=== PATIENT | female | born 1935 | race Caucasian/White ===

== ENCOUNTER 2017-09-01 08:37 | Emergency (ER) | payer OTHER, MEDICARE ==
--- NOTE | 2017-09-01 08:49 | ED ---
Neurological HPI - HPI Summary HPI Summary: This patient is a 82 year old F BIBA with a chief complaint of right forearm pain and numbness since this morning. Pt felt general weakness last night before going to sleep. Upon waking, the pt felt pain in her right wrist and forearm and put on a pain patch, which alleviated some of the pain. Pt thought she was having a stroke, which is why she was brought to the ER. Patient reports cough, malaise, frequent urination, nausea, blurry vision, and lightheaded dizziness. Pt reports that she has had lines across her vision and general difficulty focusing. Pt was able to ambulate earlier this morning. Pt has not taken her BP medication or baby aspirin this morning. Pt was on Lasix in the past but discontinued because of frequent urination. Pt ate yogurt [employer]. Pt is seeing a throat doctor for a vascularization next week. PMHx of stroke. Pt is a former smoker. - History of Current Complaint Chief Complaint: EDGeneral Stated Complaint: ARM PAIN/NUMBNESS Time Seen by Provider: 09/01/17 08:38 Hx Obtained From: Patient Onset/Duration: Sudden Onset, Started hours ago Timing: Constant Onset Severity: Severe Current Severity: Moderate Pain Intensity: 0 Pain Scale Used: 0-10 Numeric Character: Lightheaded, Weak, Dizzy, Numbness/Tingling Associated Signs and Symptoms: Positive: Weakness, Dizziness, Pain - right arm, Lightheadness, Nausea/Vomiting - Allergy/Home Medications Allergies/Adverse Reactions: Allergies Allergy/AdvReac Type Severity Reaction Status Date / Time carvedilol [From Coreg] Allergy Unknown Verified 09/01/17 08:48 Reaction Details Penicillins Allergy Unknown Verified 09/01/17 08:48 Reaction Details Home Medications: Home Medications dilTIAZem HCl [Diltiazem 12Hr ER] 2 cap PO DAILY 09/01/17 [History Confirmed ] PMH/Surg Hx/FS Hx/Imm Hx Cardiovascular History: Reports: Hx Hypertension History: Reports: Other Problems/Disorders - frequent urination EENT History: Denies: Hx Deafness Infectious Disease History: No Infectious Disease History: Denies: Traveled Outside the [place] in Last 30 Days - Family History Known Family History: Positive: Hypertension - Social History Hx Tobacco Use: Yes Smoking Status (MU): Former Smoker Type: Cigarettes Review of Systems Positive: Fatigue, Other - malaise Positive: Blurred Vision Positive: Cough Positive: Nausea Positive: frequency Positive: Other - right arm pain Positive: Numbness Positive: Anxious All Other Systems Reviewed And Are Negative: Yes Physical Exam - Summary Physical Exam Summary: Appearance: Well appearing, no pain distress Skin: warm, dry, reflects adequate perfusion Head/face: normal Eyes: EOMI, ZAIN ENT: normal Neck: supple, non-tender Respiratory: CTA, breath sounds present. Cardiovascular: RRR, pulses symmetrical. Fine crackle in the left base. Elevated BP and HR. Abdomen: non-tender, soft Bowel Sounds: present Musculoskeletal: strength/ROM intact. Trace LE edema. Neuro: normal, sensory motor intact, A&Ox3 GCS: 15 Triage Information Reviewed: Yes Vital Signs On Initial Exam: Initial Vitals Temp Pulse Resp BP Pulse Ox 98.3 F 105 16 206/98 98 09/01/17 08:40 09/01/17 08:40 09/01/17 08:40 09/01/17 08:40 09/01/17 08:40 Vital Signs Reviewed: Yes Diagnostics - Vital Signs Vital Signs Temp Pulse Resp BP Pulse Ox 09/01/17 08:40 98.3 F 105 16 206/98 98 - Laboratory Result Diagrams: 09/01/17 09:11 09/01/17 09:11 Lab Statement: Any lab studies that have been ordered have been reviewed, and results considered in the medical decision making process. - Radiology CXR Radiology Interpretation Completed By: Radiologist - No radiographic evidence of acute cardiopulmonary disease. - EKG 9:02 Cardiac Rate: NL - 92 bpm EKG Rhythm: Atrial Fibrillation ST Segment: Normal - Prolonged QT interval, nml axis 10:33 Cardiac Rate: NL - 78 EKG Rhythm: Sinus Rhythm ST Segment: Normal - nml axis, nml interval. 1st degree AV block NIH Scale - NIH Scale Level of Consciousness: Alert/Keenly Responsive Ask Patient the Month and His/Her Age: Both Correct Ask Pt to Open/Close Eyes and Assembly Line Inspector/Release Non-Paretic Hand: Both Correctly Best Gaze (Only Horizontal Eye Movement): Normal Visual Field Testing: No Visual Loss Facial Paresis-Pt to Smile & Close Eyes or Grimace Symmetry: Normal/Symmetrical Motor Function - Right Arm: No Drift-Holds 10 Seconds Motor Function - Left Arm: No Drift-Holds 10 Seconds Motor Function - Right Leg: No Drift-Holds 10 Seconds Motor Function - Left Leg: No Drift-Holds 10 Seconds Limb Ataxia-Must be out of Proportion to Weakness Present: Absent Sensory (Use Pinprick to Test Arms/Legs/Trunk/Face): Normal Best Language (Describe Picture, Name Items): No Aphasia Dysarthria (Read Several Words): Normal Extinction and Inattention: No Abnormality Total Score: 0 Re-Evaluation - Re-Evaluation First Eval Re-Evaluation Time: 09:39 Change: Improved - BP has improved Second Eval Re-Evaluation Time: 10:31 Change: Improved - Pt is feeling better. Pt spontaneously converted to NSR. Request a repeat EKG. Third Eval Re-Evaluation Time: 10:39 Comment: Pt informed me that her doctor was already increasing her Diltiazem that she was supposed to get later today. Course/Dx - Course Course Of Treatment: Patient found to have atrial fibrillation, rate uncontrolled on arrival but spontaneously the rate improved. She then spontaneously converted. She felt well thereafter. This was without any medications. She is not on any blood thinner other than aspirin. We started her on oral Eliquis and I contacted the hospitalist. She agrees that patient can be safely discharged home with outpatient echocardiogram. Her doctor has already instructed her to increase her diltiazem. - Differential Dx Differential Diagnoses Neuro: Positive: Other - Elevated blood pressure, atrial fibrillation, metabolic abnormality, pneumonia, sepsis, UTI, dehydration - Diagnoses Provider Diagnoses: Paroxysmal atrial fibrillation, Elevated blood pressure reading - Physician Notifications Discussed Care Of Patient With: Lamar Macias Time Discussed With Above Provider: 10:34 Instructed by Provider To: Other - discharge with new medication Discharge - Sign-Out/Discharge Documenting (check all that apply): Patient Departure - Discharge - Discharge Plan Condition: Improved Disposition: HOME Prescriptions: Apixaban [Eliquis] 5 mg PO BID #60 [id number] Patient Education Materials: A-fib (Atrial Fibrillation) (ED) Referrals: Nima Hill DO [Doctor of Osteopathy] - Additional Instructions: There is a coupon for free 30 day supply of blood thinner on the respiratory support technician's website. Dr. Yao first thing in the morning to schedule follow-up. He will need to have an outpatient echocardiogram performed. Increase the diltiazem medication as he indicated. Return if worse, new symptoms or other concerns as discussed. - Billing Disposition and Condition Condition: IMPROVED Disposition: Home
[2017-09-01] MEDS ORDERED: Labetalol IV* 5 MG/ML 20 ML VIAL IV PUSH ONE (08:57)
[2017-09-01 09:25] LABS: ABS Basophils 0.1 10^3/ul (0-0.2); ABS Eosinophils 0.1 10^3/ul (0-0.6); ABS Lymphocytes 1.4 10^3/ul (1.0-4.8); ABS Monocytes 0.6 10^3/ul (0-0.8); ABS Neutrophils 3.7 10^3/ul (1.5-7.7); ABS Nucleated RBC 0 10^3/ul; Eosinophil % 1.4 % (0-6); Hematocrit 37 % (35-47); Hemoglobin 13.1 g/dl (12.0-16.0); Lymphocyte % 23.6 % (25-47); Mean Corpuscular HGB Conc 35 g/dl (31-36); Mean Corpuscular Hemoglobin 29 pg (27-31); Mean Corpuscular Volume 84 fL (80-97); Mean Platelet Volume 8.9 um3 (7.4-10.4); Nucleated Red Blood Cells % 0.1; Platelet Count 194 10^3/ul (150-450); Red Blood Count 4.47 10^6/ul (4.00-5.40); Red Cell Distribution Width 13 % (10.5-15); White Blood Count 5.8 10^3/ul (3.5-10.8)
[2017-09-01 09:41] LABS: EGFR Non-African American 63.9 (>60)
--- NOTE | 2017-09-01 10:28 | RAD ---
INDICATION: Cough COMPARISON: Most recent comparison chest x-rays dated May 27, 2016 TECHNIQUE: PA and lateral views of the chest were obtained. FINDINGS: The heart and mediastinum are normal in size and contour. The lungs are grossly clear. There is no evidence of large pleural effusion. Visualized bones are normal for the patient's age. There is no radiographic evidence of free air beneath the diaphragm IMPRESSION: No radiographic evidence of acute cardiopulmonary disease.
[2017-09-01 10:56] VITALS: BP 169/74
== END 2017-09-01 10:55 | disposition home or self-care (01) ==
LOC: ED 08:37
DX: I48.91 Unspecified atrial fibrillation (principal); I10 Essential (primary) hypertension; Z88.0 Allergy status to penicillin; Z87.891 Personal history of nicotine dependence; Z86.73 Personal history of transient ischemic attack (TIA), and cerebral infarction without residual deficits; I44.0 Atrioventricular block, first degree
CPT/HCPCS: 36415; 71046; 80053; 84484; 85025; 93005; 96374; 99283

== ENCOUNTER 2017-11-25 17:57 | Inpatient (IN) | payer MEDICARE, OTHER ==
--- NOTE | 2017-11-25 19:03 | ED ---
Abdominal Pain/Female - HPI Summary HPI Summary: This patient is a 82 year old female presenting to [facility] with a chief complaint of abd pain right under breasts since approx. 2 weeks ago. Patient states that she has a rash under her right breast, barely visible pink bumps. The pain is described as a stabbing pain. The pain is rated 8/10 in severity. Symptoms aggravated by movement. Symptoms alleviated by nothing. Patient additionally reports dry cough, lack of appetite. Patient denies SOB, chest pain. - History of Current Complaint Chief Complaint: EDAbdPain Stated Complaint: RASH UNDER BREAST Time Seen by Provider: 11/25/17 18:50 Onset/Duration: Lasting Weeks, Still Present Timing: Constant Severity Currently: Moderate Pain Intensity: 8 Pain Scale Used: 0-10 Numeric Location: Discrete At: RUQ Radiates: No Character: Sharp Aggravating Factor(s): Nothing Alleviating Factor(s): Nothing Associated Signs and Symptoms: Positive: Negative - SOB, chest pain, Other: - dry cough, lack of appetite Allergies/Adverse Reactions: Allergies Allergy/AdvReac Type Severity Reaction Status Date / Time carvedilol [From Coreg] Allergy Unknown Verified 11/28/17 11:35 Reaction Details Penicillins Allergy Unknown Verified 11/28/17 11:35 Reaction Details Home Medications: Home Medications dilTIAZem 360 MG 24HR ER (NF) [Diltiazem 360 mg 24Hr ER] 360 mg PO DAILY [History Confirmed 11/25/17] PMH/Surg Hx/FS Hx/Imm Hx Previously Healthy: No Cardiovascular History: Reports: Hx Hypertension History: Reports: Other Problems/Disorders - frequent urination Sensory History: Denies: Hx Deafness Infectious Disease History: No Infectious Disease History: Denies: Traveled Outside the [place] in Last 30 Days - Family History Known Family History: Positive: Hypertension - Social History Alcohol Use: None Hx Substance Use: No Substance Use Type: Reports: None Hx Tobacco Use: Yes Smoking Status (MU): Former Smoker Type: Cigarettes Review of Systems Negative: Fever Negative: Chest Pain Positive: Cough. Negative: Shortness Of Breath Positive: Abdominal Pain Positive: Rash All Other Systems Reviewed And Are Negative: Yes Physical Exam - Summary Physical Exam Summary: Appearance: Well-appearing, Well-nourished, lying in bed comfortably Skin: Warm, dry, no obvious rash Eyes: sclera anicteric, no conjunctival pallor ENT: mucous membranes moist, pharynx appears normal Neck: Supple, nontender Respiratory: Clear to auscultation, no signs of respiratory distress Cardiovascular: Normal S1, S2. No murmurs. Normal distal pulses in tibial and radial bilaterally. Abdomen: Soft, nontender, normal active bowel sounds present Musculoskeletal: Normal, Strength/ROM Intact Neurological: A&Ox3, awake and alert, mentation is normal, speech is fluent and appropriate Psychiatric: affect is normal, does not appear anxious or depressed Triage Information Reviewed: Yes Vital Signs On Initial Exam: Initial Vitals Temp Pulse Resp BP Pulse Ox 98.6 F 99 20 142/77 97 11/25/17 18:09 11/25/17 18:09 11/25/17 18:09 11/25/17 18:09 11/25/17 18:09 Vital Signs Reviewed: Yes Diagnostics - Vital Signs Vital Signs Temp Pulse Resp BP Pulse Ox 11/25/17 18:09 98.6 F 99 20 142/77 97 - Laboratory Result Diagrams: 11/26/17 05:44 11/26/17 05:44 Lab Statement: Any lab studies that have been ordered have been reviewed, and results considered in the medical decision making process. - Radiology CXR Xray Interpretation: Positive (See Comments) - CXR reveals, right lower lobe infiltrate with effusion, which is new from previous at 07/2017. ED physician has reviewed this radiology report. Radiology Interpretation Completed By: ED Physician Abdominal Pain Fem Course/Dx - Course Course Of Treatment: This is an 82-year-old woman coming into the ED with a history of recent onset of pain in the right lower chest, worse with breathing and movement. She is hemodynamically stable and in no respiratory distress. The chest x-ray showed right pleural effusion that was new compared to a film from August. D-dimer was minimally elevated, and I thought that the patient may have had pneumonia, but on CTA of the chest it appears that she has bilateral pulmonary emboli, worse on the right. She was started on eliquis back in September for her atrial fibrillation and some type of problem with her right arm per her report, but over the past few weeks she was off the medication because she lost it, and only restarted it in the last couple of days. So it would appear that she was not anticoagulated at the time she developed her present problem. Accordingly, I would not call this a anticoagulated failure, and for now I am just going to restart her on 10 mg of eliquis. - Diagnoses Provider Diagnoses: Pulmonary emboli Discharge - Sign-Out/Discharge Documenting (check all that apply): Patient Departure - Discharge Plan Condition: Stable Disposition: ADMITTED TO [facility] - Billing Disposition and Condition Condition: STABLE Disposition: Admitted to [facility] - Attestation Statements Document Initiated by Kilo: Yes Documenting Raoulibrosalba: Jorge Hoffman Provider For Whom Kilo is Documenting (Include Credential): Jose De Jesus Funk MD Scribe Attestation: Jorge Jennings scribed for Jose De Jesus Funk MD on 12/06/17 at 1832. Raoulibe Documentation Reviewed: Yes Provider Attestation: The documentation as recorded by the Jorge shepherd accurately reflects the service I personally performed and the decisions made by me, Jose De Jesus Funk MD
[2017-11-25 19:25] LABS: ABS Basophils 0 10^3/ul (0-0.2); ABS Eosinophils 0.2 10^3/ul (0-0.6); ABS Lymphocytes 2.9 10^3/ul (1.0-4.8); ABS Monocytes 1.1 10^3/ul (0-0.8); ABS Neutrophils 6.1 10^3/ul (1.5-7.7); ABS Nucleated RBC 0 10^3/ul; Eosinophil % 1.9 % (0-6); Hematocrit 42 % (35-47); Hemoglobin 14.1 g/dl (12.0-16.0); Mean Corpuscular HGB Conc 34 g/dl (31-36); Mean Corpuscular Hemoglobin 28 pg (27-31); Mean Corpuscular Volume 83 fL (80-97); Mean Platelet Volume 9.3 um3 (7.4-10.4); Nucleated Red Blood Cells % 0.1; Platelet Count 216 10^3/ul (150-450); Red Blood Count 5.01 10^6/ul (4.00-5.40); Red Cell Distribution Width 13 % (10.5-15); White Blood Count 10.3 10^3/ul (3.5-10.8)
[2017-11-25 19:43] LABS: EGFR Non-African American 60.6 (>60)
[2017-11-25] MEDS ORDERED: Iohexol 350* (CONTRAST) 500 ML MDV IV ONE (20:04)
[2017-11-25] MEDS ORDERED: cefTRIAXone(*) 1 GM in NS 0.9% 50 ML* 50 ML IVPB ONE (20:49)
[2017-11-25] MEDS ORDERED: Azithromycin IV(*) 500 MG in NS 0.9% 250 ML* 250 ML IVPB ONE (20:49)
--- NOTE | 2017-11-25 21:36 | RAD ---
EXAM: CT Angiography Chest With Intravenous Contrast CLINICAL HISTORY: 82 years old, female; Pain; Chest pain; Right-sided chest pain; Additional info: Pleuritic r sided pain, new effusion, elev d dimer TECHNIQUE: Axial computed tomographic angiography images of the chest with intravenous contrast using pulmonary embolism protocol. All CT scans at this facility use at least one of these dose optimization techniques: automated exposure control; mA and/or kV adjustment per patient size (includes targeted exams where dose is matched to clinical indication); or iterative reconstruction. MIP reconstructed images were created and reviewed. Coronal and sagittal reformatted images were created and reviewed. CONTRAST: 69 mL of [id number] administered intravenously. COMPARISON: DX CXR CHEST PA LAT 2 VWS 09/01/2017 9:43 AM FINDINGS: Pulmonary arteries: Acute pulmonary emboli involving multiple segments of the right pulmonary artery and to a lesser degree the left pulmonary artery. Aorta: Atherosclerotic calcification including coronary arteries. Lungs: Bilateral dependent atelectasis. No mass. Pleural space: Right pleural effusion. No pneumothorax. Heart: No evidence of right heart strain. No significant pericardial effusion. Bones/joints: Degenerative changes of the thoracic spine. No acute fracture. No dislocation. Soft tissues: Unremarkable. Lymph nodes: Unremarkable. No enlarged lymph nodes. IMPRESSION: 1. Bilateral pulmonary emboli, right greater than left. No evidence of right heart strain. 2. Right pleural effusion. To contact [facility] with a general question: Operations Center - [phone] For direct physician to physician contact: Physician Hotline - [phone] [facility] [place] ([facility] Facility ID #[id number])
[2017-11-25] MEDS: Apixaban* 5 MG TAB PO SCH (22:53)
--- NOTE | 2017-11-25 23:04 | ADMNOTE ---
Subjective Date of Service: 11/25/17 Interval History: hpi pt is a poor historian due to her prior cva and hx of etoh dep despite quit 45 yrs ago she is aao times three and signed the molst dnr 82 yr old wf with hx of cva with memory impairment hx of etoh dep quit 45 yrs ago presented to er with two weeks duration of left side chest pain worsening when she flipped to her right side. pt decided to seek medical help because she could not bear the pain. she has been on xarelto for a fib but ran out this meds for 5 days. pain described as achy type 8/10, localized on left side of chest worsening when turning towards her right side and any movement. pt had a ct scan chest + pe no family hx or personal hx of clots Family History: Findings - denied any family hx of clots Social History: Findings - lives alone no cig 25 yrs ago no etoh for 45 yrs ago Past Medical History: Findings - phx a fib on xarelto non compliance cva with memory impairement pshx s/p wally/oob s/p appy Review of Systems - Measurements Intake and Output: Intake and Output Last 24 Hours 11/23/17 11/24/17 11/25/17 11/26/17 06:59 06:59 06:59 06:59 Weight 170 lb - Review of Systems General Comments: 01/29 ros with her please refer to hpi Objective Active Medications: Acetaminophen (Tylenol Tab*) 650 mg PO Q4H PRN PRN Reason: FEVER/PAIN Apixaban (Eliquis*) 10 mg PO BID [facility] Last Admin: 11/25/17 22:53 Dose: 10 mg Diltiazem HCl (Cardizem Cd Cap*) 360 mg PO DAILY [facility] Vital Signs - 8 hr 11/25/17 11/25/17 11/25/17 18:09 19:07 19:08 Temperature 98.6 F Pulse Rate 99 92 90 Respiratory 20 20 30 Rate Blood Pressure 142/77 146/77 (mmHg) O2 Sat by Pulse 97 95 95 Oximetry 11/25/17 11/25/17 11/25/17 19:38 20:00 21:00 Temperature Pulse Rate 99 91 91 Respiratory 22 26 27 Rate Blood Pressure 140/79 (mmHg) O2 Sat by Pulse 96 96 95 Oximetry 11/25/17 11/25/17 11/25/17 21:47 22:00 22:17 Temperature Pulse Rate 99 92 91 Respiratory 24 26 21 Rate Blood Pressure 148/78 142/73 (mmHg) O2 Sat by Pulse 94 94 94 Oximetry 11/25/17 22:47 Temperature Pulse Rate 91 Respiratory 29 Rate Blood Pressure 129/66 (mmHg) O2 Sat by Pulse 93 Oximetry Eyes: No Scleral Icterus Ears/Nose/Mouth/Throat: NL Teeth, Lips, Gums, Clear Oropharnyx, Mucous Membranes Moist Neck: NL Appearance and Movements; NL JVP, Trachea Midline, No Thyroid Enlargement, Masses Respiratory: Clear to Auscultation Cardiovascular: NL Sounds; No Murmurs; No JVD, - - s1 s2 + anterior chest tenderness upon pressure Abdominal: NL Sounds; No Tenderness; No Distention Extremities: No Edema, - - able to move her exts against gravity Skin: No Rash or Ulcers, - Neurological: Alert and Oriented x 3, NL Sensation, NL Muscle Strength and Tone Result Diagrams: 11/26/17 05:44 11/26/17 05:44 Assess/Plan/Problems-Billing Assessment: 82 yr old wf with hx of cva with memory deficit hx of a fib on xarelto non compliance ---> ran out of meds for 5 days as she claimed but she has this pleuritic chest pain for [address] of chest + pe ---> pt was restarted with xarelto - Patient Problems (1) Non-compliance Current Visit: Yes Status: Acute Code(s): Z91.19 - PATIENT'S NONCOMPLIANCE W OTH MEDICAL TREATMENT AND REGIMEN SNOMED Code(s): 7877770 Comment: may need vna upon d/c says she has someone coming to check her current living status on sat and has to leave (2) A-fib Current Visit: Yes Status: Acute Code(s): I48.91 - UNSPECIFIED ATRIAL FIBRILLATION SNOMED Code(s): 08379806 Comment: rate controlled tele while coming in restart xarelto (3) HTN (hypertension) Current Visit: Yes Status: Acute Code(s): I10 - ESSENTIAL (PRIMARY) HYPERTENSION SNOMED Code(s): 05579265 Comment: stable continue current mgt (4) Pulmonary emboli Current Visit: Yes Status: Acute Code(s): I26.99 - OTHER PULMONARY EMBOLISM WITHOUT ACUTE COR PULMONALE SNOMED Code(s): 82526509 Comment: etiology of pul embolism is not clear ---> pt says she has this chest pain for two weeks but was out of xarelto for only 5 days as she claims -- -> poor historian with hx of cva with memory deficits ---> hx of etoh dep despite quit 45 yrs ago - ?? heme consult may need it due to her poor compliance outpt and inpt (5) Pleuritic chest pain Current Visit: Yes Status: Acute Comment: this chest pain is reproducible when her anterior chest is pressured again she is a poor historian - tele with mela - on xarelto for pe and a fib hr wnl so is sbp
[2017-11-26] MEDS: NS 0.9% 1000 ML* 1,000 ML IV SCH ×3 (00:37→22:13)
[2017-11-26] MEDS: Acetaminophen TAB* 325 MG PO PRN ×3 (00:37→20:13)
[2017-11-26 06:35] LABS: ABS Basophils 0.1 10^3/ul (0-0.2); ABS Eosinophils 0.2 10^3/ul (0-0.6); ABS Lymphocytes 3.8 10^3/ul (1.0-4.8); ABS Monocytes 1.2 10^3/ul (0-0.8); ABS Neutrophils 4.5 10^3/ul (1.5-7.7); ABS Nucleated RBC 0 10^3/ul; Eosinophil % 2.1 % (0-6); Hematocrit 37 % (35-47); Hemoglobin 12.8 g/dl (12.0-16.0); Lymphocyte % 38.9 % (25-47); Mean Corpuscular HGB Conc 35 g/dl (31-36); Mean Corpuscular Hemoglobin 29 pg (27-31); Mean Corpuscular Volume 82 fL (80-97); Mean Platelet Volume 9.9 um3 (7.4-10.4); Nucleated Red Blood Cells % 0.2; Platelet Count 211 10^3/ul (150-450); Red Blood Count 4.47 10^6/ul (4.00-5.40); Red Cell Distribution Width 14 % (10.5-15); White Blood Count 9.8 10^3/ul (3.5-10.8)
[2017-11-26 06:53] LABS: EGFR Non-African American 58.3 (>60)
--- NOTE | 2017-11-26 07:49 | RAD ---
HISTORY: r lower chest pain,worse with movement,breathing COMPARISONS: September 01, 2017 VIEWS: 4: Frontal dual-energy and lateral views of the chest. FINDINGS: CARDIOMEDIASTINAL SILHOUETTE: The cardiomediastinal silhouette is normal. TALIA: There are calcified hilar lymph nodes PLEURA: There is blunting of the right costophrenic angle. LUNG PARENCHYMA: There is hyperinflation with flattening of the diaphragm and expansion of the AP diameter of the chest. ABDOMEN: The upper abdomen is clear. There is no subphrenic gas. BONES AND SOFT TISSUES: No bone or soft tissue abnormalities are noted. OTHER: None. IMPRESSION: 1. COPD. 2. SMALL RIGHT PLEURAL EFFUSION. 3. EVIDENCE OF EXPOSURE TO GRANULOMATOUS DISEASE. R1
[2017-11-26] MEDS ORDERED: NON FORMULARY MED* (Apixaban [Eliquis] 5 MG) PO SCH (09:00)
[2017-11-26] MEDS ORDERED: Apixaban* 2.5 MG TAB PO SCH (09:00)
[2017-11-26] MEDS: Apixaban* 5 MG TAB PO SCH ×2 (09:44→20:12)
[2017-11-26] MEDS: Diltiazem CD CAP* 180 MG PO SCH (09:45)
--- NOTE | 2017-11-26 11:51 | PN ---
Subjective Date of Service: 11/26/17 Interval History: Patient seen and examined. States chest pain is improved. Feels the IVF have helped. Denies SOB, no tachycardia or palpitations. No acute overnight events. Family History: Findings - denied any family hx of clots Social History: Findings - lives alone no cig 25 yrs ago no etoh for 45 yrs ago Past Medical History: Findings - phx a fib on xarelto non compliance cva with memory impairement pshx s/p wally/oob s/p appy Objective Active Medications: Acetaminophen (Tylenol Tab*) 650 mg PO Q4H PRN PRN Reason: FEVER/PAIN Last Admin: 11/26/17 09:50 Dose: 650 mg Apixaban (Eliquis*) 10 mg PO BID [facility] Last Admin: 11/26/17 09:44 Dose: 10 mg Diltiazem HCl (Cardizem Cd Cap*) 360 mg PO DAILY [facility] Last Admin: 11/26/17 09:45 Dose: 360 mg Sodium Chloride (Ns 0.9% 1000 Ml*) 1,000 mls @ 100 mls/hr IV PER RATE [facility] Last Admin: 11/26/17 00:37 Dose: 100 mls/hr Vital Signs - 8 hr 11/26/17 11/26/17 03:47 07:24 Temperature 98.6 F 97.8 F Pulse Rate 65 73 Respiratory 22 16 Rate Blood Pressure 114/46 117/58 (mmHg) O2 Sat by Pulse 94 Oximetry Oxygen Devices in Use Now: None Appearance: Alert, NAD Eyes: No Scleral Icterus, PERRLA Ears/Nose/Mouth/Throat: NL Teeth, Lips, Gums, Mucous Membranes Moist Neck: NL Appearance and Movements; NL JVP, Trachea Midline Respiratory: Symmetrical Chest Expansion and Respiratory Effort, Clear to Auscultation Cardiovascular: NL Sounds; No Murmurs; No JVD, RRR, No Edema Abdominal: NL Sounds; No Tenderness; No Distention Extremities: No Edema, No Clubbing, Cyanosis Skin: No Rash or Ulcers Neurological: Alert and Oriented x 3 Nutrition: Taking PO's Result Diagrams: 11/26/17 05:44 11/26/17 05:44 Diagnostic Imaging: Patient Name: BRITTANEY RENDON Medical Record#: [id number] Ordering Physician: Delano Rodriguez MD Acct.#: [id number] : 1935 Age: 82 Sex: F Location: EMERGENCY DEPARTMENT Exam Date: 11/25/171952 ADM Status: REG ER Order Information: CTA CHEST Accession Number: [id number] CPT: 23000 ADDENDUM THIS REPORT CONTAINS FINDINGS THAT MAY BE CRITICAL TO PATIENT CARE. The findings were verbally communicated via telephone conference with DELANO RODRIGUEZ at 9:39 PM EDT on 11/25/2017. The findings were acknowledged and understood. To contact [facility] with a general question: [facility] - [phone] For direct physician to physician contact: Physician Hotline - [phone] [facility] ([facility] Facility ID #[id number]) <Electronically signed by John Senior MD in OV>11/25/172138 Dictated by: John Senior MD Dictated Date/Time:11/25/172138 Transcribed Date/Time: Copy to: No Primary Care Phys,NOPCP ; Delano Rodriguez MD EXAM: CT Angiography Chest With Intravenous Contrast CLINICAL HISTORY: 82 years old, female; Pain; Chest pain; Right-sided chest pain; Additional info: Pleuritic r sided pain, new effusion, elev d dimer TECHNIQUE: Axial computed tomographic angiography images of the chest with intravenous contrast using pulmonary embolism protocol. All CT scans at this facility use at least one of these dose optimization techniques: automated exposure control; mA and/or kV adjustment per patient size (includes targeted exams where dose is matched to clinical indication); or iterative reconstruction. MIP reconstructed images were created and reviewed. Coronal and sagittal reformatted images were created and reviewed. CONTRAST: 69 mL of [id number] administered intravenously. COMPARISON: DX CXR CHEST PA LAT 2 VWS 09/01/2017 9:43 AM FINDINGS: Pulmonary arteries: Acute pulmonary emboli involving multiple segments of the right pulmonary artery and to a lesser degree the left pulmonary artery. Aorta: Atherosclerotic calcification including coronary arteries. Lungs: Bilateral dependent atelectasis. No mass. Pleural space: Right pleural effusion. No pneumothorax. Heart: No evidence of right heart strain. No significant pericardial effusion. Bones/joints: Degenerative changes of the thoracic spine. No acute fracture. No dislocation. Soft tissues: Unremarkable. Lymph nodes: Unremarkable. No enlarged lymph nodes. IMPRESSION: 1. Bilateral pulmonary emboli, right greater than left. No evidence of right heart strain. 2. Right pleural effusion. Assess/Plan/Problems-Billing Assessment: This is an 82 yr old female with hx of cva with memory deficit, hx of a fib on xarelto with report of non compliance 2/2 running out of medication, that presents with report of pleuritic chest pain for 2 weeks, imaging positive for bilateral PE's. - Patient Problems (1) Pulmonary emboli Code(s): I26.99 - OTHER PULMONARY EMBOLISM WITHOUT ACUTE COR PULMONALE SNOMED Code(s): 80420139 Comment: - Etiology unclear, does not appear to have faile xarelto, likely she was not taking medications for longer than 5 days as reported - Xarelto restarted - No SOB or tachycardia noted (2) A-fib Code(s): I48.91 - UNSPECIFIED ATRIAL FIBRILLATION SNOMED Code(s): 68327655 Comment: - Rate controlled on diltiazem, no RVR - Continue AC and telemetry (3) HTN (hypertension) Code(s): I10 - ESSENTIAL (PRIMARY) HYPERTENSION SNOMED Code(s): 41280793 Comment: - Stable on diltiazem (4) Non-compliance Code(s): Z91.19 - PATIENT'S NONCOMPLIANCE W OTH MEDICAL TREATMENT AND REGIMEN SNOMED Code(s): 0335631 Comment: - Concern that post-CVA mild cognitive deficit may be impacting her ability to attend to her medical regimen - Discussed community resources at length, patient states she has a daughter that is "too busy" to assist - Has appointment at [facility] tomorrow at 10am - Discussed with Katiana from Social Work who will call [facility] - If patient stable through [facility], will DC in AM in time for her to participate in [facility] intake tomorrow. (5) Pleuritic chest pain Comment: - Improved per patient report - Was reporoducible at admission, with palpation and deep inspiration - Etiology is likely her bilateral PEs (6) DVT prophylaxis Code(s): ZBF4174 - SNOMED Code(s): 182703166 Comment: - On xarelto (7) DNR (do not resuscitate) Status and Disposition: Inpatient on tele, DC to home with outpatient services to be coordinated with SW.
[2017-11-26 11:58] LABS: Urine Appearance Turbid; Urine Blood 2+ (Negative); Urine Color Yellow; Urine Ketones Negative (Negative); Urine Protein 1+(30 mg/dL) (Negative); Urine Red Blood Cell 3+(>10/hpf) (Absent); Urine Specific Gravity 1.033 (1.010-1.030); Urine Urobilinogen Negative (Negative); Urine White Blood Cell 3+(>20/hpf) (Absent)
--- NOTE | 2017-11-26 12:55 | ECHO ---
Patient: BRITTANEY RENDON [facility] Rec#: [id number] : 1935 Date: 11/26/2017 Age: 82y Height: 152 cm / 59.8 in Weight: 77 kg / 169.7 lbs Sex: F BSA: 1.74 Room#: [facility] Admit Date#: 11/25/2017 Type: Inpatient Referring: Rosa Diego Reading: Víctor Mcduffie MD Prisoner Classification Interviewer: Shalonda Mc RDCS,RDMS Transthoracic Echocardiogram Indication: AFIB BP: 114/46 HR: 79 Rhythm: A-Fib Findings History: HTN, AFIB, smoker Technical Comments: The study quality is good. Left Ventricle: The left ventricular chamber size is decreased. Mild concentric left ventricular hypertrophy is observed. Global left ventricular wall motion and contractility are within normal limits. There is normal left ventricular systolic function. The estimated ejection fraction is 55-60%. The assessment of diastolic function is non-diagnostic. Left Atrium: The left atrium is mildly dilated. Right Ventricle: The right ventricle is mildly dilated. The right ventricular global systolic function is mildly reduced. Right Atrium: The right atrial cavity size is normal. Aortic Valve: The aortic valve is trileaflet. The aortic valve leaflets are moderately thickened. There is no evidence of aortic regurgitation. There is mild to moderate aortic stenosis. The aortic valve area, by VTI's, is calculated at 1.1 cm2. Mitral Valve: There is mitral annular calcification. The mitral valve leaflets are mildly thickened. There is moderate mitral regurgitation. There is mild mitral stenosis. Tricuspid Valve: The tricuspid valve leaflets are normal. There is mild to moderate tricuspid regurgitation. There is evidence of mild pulmonary hypertension. Pulmonic Valve: There is no evidence of pulmonic valve thickening. There is a trace pulmonic regurgitation. Pericardium: There is no significant pericardial effusion. Aorta: The aortic root appears normal. There is no dilatation of the aortic arch. Pulmonary Artery: The main pulmonary artery is not well visualized. Venous: The inferior vena cava is dilated. There is less than 50% respiratory change in the inferior vena cava dimension. Summary: There was not any prior study for comparison. Conclusions Global left ventricular wall motion and contractility are within normal limits. There is normal left ventricular systolic function. The estimated ejection fraction is 55-60%. There is no evidence of aortic regurgitation. There is mild to moderate aortic stenosis. The mitral valve leaflets are mildly thickened. There is moderate mitral regurgitation. There is mild to moderate tricuspid regurgitation. There is no significant pericardial effusion. Measurements Name Value Normal Range RVIDd (AP) 2D 2.9 cm (0.9 - 2.6) RVDdMajor (2D) 3 cm (2.2 - 4.4) RAd ISD 4CH 4.8 cm (3.4 - 4.9) RA (A4C)W 3.7 cm (2.9 - 4.6) IVSd (2D) 1.3 cm (0.6 - 1) LVPWd (2D) 1.1 cm (0.6 - 1) LVIDd (2D) 3.3 cm (3.6 - 5.4) LVIDs (2D) 1.6 cm - LV FS (2D) 51 % (25 - 45) Aortic Annulus 2 cm (1.4 - 2.6) Ao root diameter (2D) 2.8 cm (2.1 - 3.5) Ascending Ao 3.2 cm (2.1 - 3.4) Aortic arch 2.6 cm (1.8 - 3.4) LA dimension (AP) 2D 3.9 cm (2.3 - 3.8) LAd ISD 4CH 5.9 cm (2.9 - 5.3) LA ISD 4CH W 4.5 cm (2.5 - 4.5) Name Value Normal Range LA ESV BP (A/L) index 37 ml/m2 - Name Value Normal Range MV E-wave Vmax 1.4 m/sec - MV deceleration time 178 msec - LV lateral e' Vmax 0.08 m/sec - LV E:e' lateral ratio 17 ratio - Name Value Normal Range AV Vmax 2 m/sec - AV VTI 38 cm - AV peak gradient 16 mmHg - AV mean gradient 9 mmHg - LVOT diameter 1.8 cm - LVOT Vmax 0.8 m/sec - LVOT VTI 17 cm - LVOT peak gradient 2.6 mmHg - LVOT mean gradient 1 mmHg - DOI (VTI) 0.4 ratio - FARZANA (continuity Vmax) 1 cm2 - FARZANA (continuity VTI) 1.1 cm2 - LELAND Vmax 0.5 m/sec - Name Value Normal Range MV Vmax 1.5 m/sec - MV VTI 35 cm - MV peak gradient 9 mmHg - MV mean gradient 3 mmHg - MV PHT 87 msec - MVA (PHT) 2.5 cm2 - MVA (continuity VTI) 1.2 cm2 - Name Value Normal Range TR Vmax 2.7 m/sec - TR peak gradient 29 mmHg - RAP 8 mmHg - RVSP 37 mmHg - IVC diameter 2.8 cm - Name Value Normal Range PV Vmax 0.7 m/sec - PV peak gradient 2 mmHg -
[2017-11-26] MEDS ORDERED: cefTRIAXone(*) 1 GM in NS 0.9% 50 ML* 50 ML IVPB SCH (20:00)
[2017-11-27 03:55] VITALS: BP 138/53
[2017-11-27] MEDS ORDERED: Pneumococcal *Vac Polyvalent 0.5 ML VIAL IM ONE (09:00)
[2017-11-27] MEDS: Apixaban* 5 MG TAB PO SCH (09:17)
[2017-11-27] MEDS: Diltiazem CD CAP* 180 MG PO SCH (09:17)
--- NOTE | 2017-11-28 14:31 | DS ---
CC: Dr. Diego; Dr. Quiñonez; Dr. Kate Bates; Dr. Riaz Crandall, [facility]* DISCHARGE SUMMARY: DATE OF ADMISSION: 11/26/17 DATE OF DISCHARGE: 11/27/17 PRIMARY CARE PHYSICIAN: None. ATTENDING PHYSICIAN FOR ADMISSION: Dr. Diego MY ATTENDING FOR TODAY: Dr. Barbara Quiñonez* (dictated by Glynn Keating , YARELIS). HOSPITAL COURSE: This is a pleasant 82-year-old female patient who presented to the emergency department on the evening of the 11/25/17 with a complaint of chest pain. The patient states that it was primarily right sided and then left sided. This has been happening over the course of last 2 weeks. It did seem to be worse with inspiration, however, when the patient stated she was turning in bed, it became increasingly worse to the point where she felt the need to come to the emergency department for evaluation. Also on significant note, prior to coming to the ED, the patient states that she had run out of some of her medications at home including her anticoagulant, Eliquis, which she was supposed to be taking 5 mg 2 times a day. The patient states that she was off her medications for 5 days until she was able to obtain a new prescription through her pharmacy [facility]. However, this is not entirely congruent with her report of chest pain for 2 weeks. In either case, the patient came to the emergency department, had a CTA of the chest, which showed bilateral PEs. At that point, the patient was not treated with the heparin drip. She was restarted on her Eliquis at therapeutic dose rather than maintenance and admitted for her chest pain. The patient did not have any subsequent shortness of breath or any further symptoms. Her chest pain improved. The patient said that she felt like she was feeling better with the IV fluids and restarting her anticoagulation. The patient stated also during this visit that she had some issues socially obtaining a primary care provider and did have an appointment with [facility] for additional resources in the home as her daughter lives far away and she does feel that she wants to continue to live independently. We reached out to social work, Katiana from inpatient social work, made arrangements for the patient to see her intake provider at [facility] the morning of the 11/27/17, for which she has already been scheduled. Being the patient stayed stable, we determined she could be discharged to home with outpatient services and followups. The patient also had urinalysis completed in the ED, which revealed yellow turbid urine, 1+ protein, increased specific gravity, 3+ leukocyte esterase, 3+ wbc's, 3+ rbc's with squamous epithelial cells. REVIEW OF SYSTEMS: On day of discharge, the patient denies any fever, fatigue, or chills. No headache. No chest pain. No shortness of breath. No abdominal pain. No nausea. No vomiting. No urinary complaints. No bowel complaints. No arthralgias or myalgias. No further constitutional complaints. PHYSICAL EXAM: On the day of discharge, the patient is alert, in no acute distress. Vital Signs: Her blood pressure 138/53, heart rate 76, respiratory rate 26, O2 saturation 94% on room air with a temperature of 99.0. HEENT: The patient is atraumatic, normocephalic. PERRLA with the non-anicteric sclerae. Oral mucosa is moist. Tongue is midline. Neck is supple, nontender. No JVD noted. No carotid bruits auscultated. Cardiovascular: S1, S2 present. No murmurs, gallops, or rubs noted. Rate is irregular. Lungs are clear bilaterally to auscultation with no wheezing, rhonchi, or rales. Abdomen is soft, nontender, nondistended. Positive bowel sounds in all 4 quadrants. is deferred. Musculoskeletal: There is no clubbing, no cyanosis. No calf tenderness. No edema. She has gross motor and sensation intact. +2 distal pulses palpable. Steady gait. Neurologic: No gross deficits. Psychiatric: Cooperative and appropriate. LABORATORY DATA: WBCs 9.8, RBCs 4.47, hemoglobin 12.8, hematocrit 37, platelets 211. Sodium 132, potassium 4.2, chloride 104, CO2 of 20, BUN 20, creatinine 0.92, GFR 58.3, glucose 142, calcium 8.5, AST 13, ALT 8, alk phos 117 , protein 6.1, albumin 3.4, triglycerides 91, cholesterol 110, LDL 60, HDL 31.8 , lipase 26, TSH 4.18. Urinalysis as stated above. D-dimer was 804. IMAGING: CT again as noted above, revealed bilateral pulmonary emboli. Chest x-ray dated 11/25/17. Impression: COPD, small right pleural effusion and evidence of exposure to granulomatous disease. DISCHARGE DIAGNOSES: 1. Bilateral pulmonary emboli. Etiology likely related to medication noncompliance. 2. Atrial fibrillation, controlled on diltiazem with no rapid ventricular response. 3. Hypertension, stable on diltiazem. 4. Pleuritic chest pain, likely secondary to bilateral pulmonary emboli. 5. Medication noncompliance, likely related to social, environmental issues. 6. Urinary tract infection, the patient had a negative urine culture, however, this can be followed when the patient comes back to [facility]. If her culture changes, antibiotic therapy can be tailored at that time. DISCHARGE MEDICATIONS: Include: 1. Diltiazem 360 mg daily. 2. Nitrofurantoin 100 mg p.o. b.i.d. 3. Apixaban 10 mg 2 times a day. DISPOSITION: The patient was discharged to home in stable condition. FOLLOWUP: The patient was instructed to follow up with her intake appointment at [facility] this morning at 10 a.m. Also, of significant note, the patient had extended conversation with myself and also with social work regarding her medications. We attempted to do [facility], however, the patient's insurance was not accepted at the [facility]. Prescriptions were sent to [facility] in [place], so that they may deliver medications to her home. She will also be set up with a [facility] appointment for followup while we try to connect the patient with a new primary care provider to ensure medication compliance. Social work contacted [facility] regarding the situation and her hospitalization, they will initiate followup based on medication management, home support, and aides inhouse. Again, the patient was discharged in stable condition, all questions were answered. The patient stated her understanding of her discharge instructions and followups. GLYNN KEATING, YARELIS [id number]/[facility] #: [id number] KAYLEIGH
== END 2017-11-27 09:50 | disposition home health service (06) | DRG 176 ==
LOC: ED 17:57 → MEDTELE 22:48 → OBSVTOIN 11-26 10:00
PROVIDERS: ADMIT Internal Medicine; ATTEND Internal Medicine
DX: I26.99 Other pulmonary embolism without acute cor pulmonale (principal); J90 Pleural effusion, not elsewhere classified; N39.0 Urinary tract infection, site not specified; I10 Essential (primary) hypertension; I48.91 Unspecified atrial fibrillation; R41.89 Other symptoms and signs involving cognitive functions and awareness; J44.9 Chronic obstructive pulmonary disease, unspecified; Z66 Do not resuscitate; Z79.01 Long term (current) use of anticoagulants; Z88.0 Allergy status to penicillin; Z88.8 Allergy status to other drugs, medicaments and biological substances; Z82.49 Family history of ischemic heart disease and other diseases of the circulatory system; Z87.891 Personal history of nicotine dependence; Z86.73 Personal history of transient ischemic attack (TIA), and cerebral infarction without residual deficits; Z91.14 Patient's other noncompliance with medication regimen; Z23 Encounter for immunization; Z90.710 Acquired absence of both cervix and uterus
CPT/HCPCS: 36415; 71046; 71275; 80053; 80061; 81003; 81015; 83690; 84443; 85025; 85379; 87086; 90686; 90732; 93005; 93306; 99283; A9270-GY; J0456; J0696; Q9967

== ENCOUNTER → 2017-11-28 11:17 | Emergency (ER) | payer MEDICARE ==
--- NOTE | 2017-11-28 17:38 | RAD ---
HISTORY: Left upper extremity pain and swelling after IV placement COMPARISON: None. TECHNIQUE: Multiple transverse and longitudinal ultrasound images were obtained of the veins of the left upper extremity using grayscale, color Doppler, and spectral Doppler imaging with and without compression and with augmentation. FINDINGS: VEINS: The axillary, brachial, basilic and cephalic are compressible throughout their course, with normal flow on color Doppler imaging and normal response to augmentation on spectral Doppler imaging. The subclavian vein exhibits appropriate augmentation and phasicity. The radial and ulnar veins are compressible. Evidence of adequate flow is identified in the right internal jugular and subclavian vein as well. SOFT TISSUES: Grossly normal. IMPRESSION: No sonographic evidence of deep vein thrombosis.
--- NOTE | 2017-11-28 17:52 | ED ---
Upper Extremity Pain - HPI Summary HPI Summary: Patient is an 82-year-old female who presents emergency department for left upper arm redness and pain. Patient received flu and pneumococcal utilizations 2 days ago. Patient was also discharged from the hospital a few days ago after diagnosis of PE, she is currently on Eliquis. Patient states her home health nurse saw her for the first time today and noticed her left upper arm was red and warm and center to the ER for evaluation of possible DVT in left upper extremity. Patient states she's been having left upper arm pain for months. No is aware of. She otherwise denies fever, chills, chest pain, shortness of breath. Symptoms are moderate in severity. Moving left arm makes symptoms worse. Rest makes symptoms better. - History of Current Complaint Chief Complaint: EDExtremityUpper Stated Complaint: LT UPPER EXTREMITY SWELLING Time Seen by Provider: 11/28/17 14:31 Hx Obtained From: Patient - Allergies/Home Medications Allergies/Adverse Reactions: Allergies Allergy/AdvReac Type Severity Reaction Status Date / Time carvedilol [From Coreg] Allergy Unknown Verified 11/28/17 11:35 Reaction Details Penicillins Allergy Unknown Verified 11/28/17 11:35 Reaction Details PMH/Surg Hx/FS Hx/Imm Hx Previously Healthy: Yes Endocrine/Hematology History: Denies: Hx Diabetes Cardiovascular History: Reports: Hx Hypertension History: Reports: Other Problems/Disorders - frequent urination Denies: Hx Renal Disease Sensory History: Reports: Hx Contacts or Glasses, Hx Hearing Aid Denies: Hx Deafness Opthamlomology History: Reports: Hx Contacts or Glasses Infectious Disease History: No Infectious Disease History: Denies: Traveled Outside the [place] in Last 30 Days - Family History Known Family History: Positive: Hypertension - Social History Occupation: Retired Lives: Alone Alcohol Use: None Hx Substance Use: No Substance Use Type: Reports: None Hx Tobacco Use: Yes Smoking Status (MU): Former Smoker Type: Cigarettes Review of Systems Constitutional: Negative Negative: Fever, Chills Cardiovascular: Negative Respiratory: Negative Positive: Other - Left upper arm pain and redness Positive: Other - Redness on right arm Neurological: Negative All Other Systems Reviewed And Are Negative: Yes Physical Exam Triage Information Reviewed: Yes Vital Signs On Initial Exam: Initial Vitals Temp Pulse Resp BP Pulse Ox 98.1 F 105 17 146/69 96 11/28/17 11:29 11/28/17 11:29 11/28/17 11:29 11/28/17 11:29 11/28/17 11:29 Vital Signs Reviewed: Yes Appearance: Positive: Well-Appearing - Pt. lying in bed in NAD. Talkative. Skin: Positive: Warm, Dry Head/Face: Positive: Normal Head/Face Inspection Eyes: Positive: Normal, EOMI Neck: Positive: Supple Musculoskeletal: Positive: Other - Good radial pulse left arm. Mild edema and erythema to left upper arm, deltoid region. No diffuse arm edema. Pain on palpation over posterior left shoulder. Neurological: Positive: Normal, CN Intact II-III Psychiatric: Positive: Affect/Mood Appropriate Diagnostics - Vital Signs Vital Signs Temp Pulse Resp BP Pulse Ox 11/28/17 11:29 98.1 F 105 17 146/69 96 - Laboratory Lab Statement: Any lab studies that have been ordered have been reviewed, and results considered in the medical decision making process. Course/Dx - Course Course Of Treatment: Patient presenting for evaluation of left upper arm pain and redness. She is currently anticoagulated with a recent diagnosis of PE. Patient states she is concerned she has a blood clot in her left arm. Feel that erythema to the left upper arm is mostly secondary to ice reaction from ration vaccination injection the patient received 2 days ago. On exam the majority of patient's pain is located to her shoulder which she states has been going on for months. She states the pain is worse in the morning and when she starts moving around and loosening her shoulder pain improves. Initially ordered x-ray of patient's shoulder further evaluation but patient declined insisted she needs to have an ultrasound done today to evaluate for DVT in left upper extremity. Ultrasound was ordered and is negative for acute findings, reading per radiology. Results were discussed with patient and her daughter who is now present. Patient is very relieved she does not have a DVT in arm. She does have a moderate amount of hot erythema to left upper arm where injection. Suspect localized reaction but concern for possible early cellulitis. Will give pt. a rx for keflex and advised to start if redness continues or increases. To call PCP tomorrow for an apt. To return to ER if sxs change or worsen. Pt. and family understand and agree with plan. - Diagnoses Provider Diagnoses: Arm pain, Injection site reaction Discharge - Sign-Out/Discharge Documenting (check all that apply): Patient Departure - Discharge Plan Condition: Good Disposition: HOME Prescriptions: Cephalexin CAP* [Keflex CAP*] 500 mg PO BID #20 cap Patient Education Materials: Influenza Virus Vaccine (By injection), Arm Pain ( ED) Referrals: Nima Hill DO [Primary Care Provider] - Additional Instructions: Schedule a follow up appointment with PCP Suspect redness to left arm is secondary to recent injection: start Keflex if redness continues to left arm Continue with home health nurse as scheduled Return to ER if symptoms change or worsen - Billing Disposition and Condition Condition: GOOD Disposition: Home
[2017-11-28 18:19] VITALS: BP 145/70
== END | disposition home or self-care (01) ==
LOC: ED 11:17
DX: M79.622 Pain in left upper arm (principal); Z79.01 Long term (current) use of anticoagulants; Z88.0 Allergy status to penicillin; Z88.8 Allergy status to other drugs, medicaments and biological substances; Z87.891 Personal history of nicotine dependence
CPT/HCPCS: 99282

== ENCOUNTER 2018-05-31 17:51 | Inpatient (IN) | payer MEDICARE, MEDICAID ==
[2018-05-31] MEDS ORDERED: Morphine 4 MG/ML VIAL (1 ml) 4 MG/ML VIAL IV PRN (18:00)
[2018-05-31] MEDS ORDERED: Ondansetron INJ* 2 MG/ML VIAL IV ONE (18:49)
--- NOTE | 2018-05-31 19:34 | ED ---
Lower Extremity - HPI Summary HPI Summary: This patient is an 83 year old female brought in by ambulance to [facility] with a chief complaint of right leg pain since 2 hours ago. Patient states that she was picking up two potted plants when she suffered a mechanical fall. Patient states that the act of picking up the plants may have made her dizzy. Patient states that she had trouble moving her leg after the fall, so she remained in place and called EMS. Patient cannot remember if there was head trauma, but denies any pain except for the leg. The pain is rated 8/10 in severity. Symptoms aggravated by nothing. Symptoms alleviated by nothing. Patient denies chest pain ,SOB, abd pain - History of Current Complaint Chief Complaint: EDFall Stated Complaint: FALL PER EMS Time Seen by Provider: 05/31/18 17:52 Hx Obtained From: Patient Mechanism Of Injury: Fall From A Standing Position Onset of Pain: Immediate Onset/Duration: Hours Severity Initially: Moderate Severity Currently: Moderate Pain Intensity: 8 Pain Scale Used: 0-10 Numeric Timing: Constant Location: Is Discrete @ - right leg Associated Signs And Symptoms: Positive: Negative - chest pain ,SOB, abd pain Aggravating Factor(s): Nothing Alleviating Factor(s): Nothing Able to Bear Weight: No - Allergies/Home Medications Allergies/Adverse Reactions: Allergies Allergy/AdvReac Type Severity Reaction Status Date / Time carvedilol [From Coreg] Allergy Unknown Verified 11/28/17 11:35 Reaction Details Penicillins Allergy Unknown Verified 11/28/17 11:35 Reaction Details Home Medications: Home Medications Rosuvastatin Calcium 10 mg PO DAILY 05/31/18 [History Confirmed 05/31/18] Torsemide 10 mg PO DAILY 05/31/18 [History Confirmed 05/31/18] PMH/Surg Hx/FS Hx/Imm Hx Previously Healthy: No Endocrine/Hematology History: Denies: Hx Diabetes Cardiovascular History: Reports: Hx Hypertension History: Reports: Other Problems/Disorders - frequent urination Denies: Hx Renal Disease Sensory History: Reports: Hx Contacts or Glasses, Hx Hearing Aid Denies: Hx Deafness Opthamlomology History: Reports: Hx Contacts or Glasses Infectious Disease History: No Infectious Disease History: Denies: Traveled Outside the [place] in Last 30 Days - Family History Known Family History: Positive: Hypertension - Social History Lives: Alone Alcohol Use: None Hx Substance Use: No Substance Use Type: Reports: None Hx Tobacco Use: Yes Smoking Status (MU): Former Smoker Type: Cigarettes Review of Systems Negative: Fever Negative: Chest Pain Negative: Shortness Of Breath Negative: Abdominal Pain Positive: Other - right leg pain All Other Systems Reviewed And Are Negative: Yes Physical Exam - Summary Physical Exam Summary: Constitutional: Well-developed, Well-nourished, Alert. (-) Distressed Skin: Warm, Dry HENT: Normocephalic; Atraumatic Eyes: Conjunctiva normal Neck: Musculoskeletal ROM normal neck. (-) JVD, (-) Stridor, (-) Tracheal deviation Cardio: Rhythm regular, rate normal, Heart sounds normal; Intact distal pulses; The pedal pulses are 2+ and symmetric. Radial pulses are 2+ and symmetric. (-) Murmur Pulmonary/Chest wall: Effort normal. (-) Respiratory distress, (-) Wheezes, (-) Rales Abd: Soft, (-) tenderness, (-) Distension, (-) Guarding, (-) Rebound Musculoskeletal: (-) Edema Lymph: (-) Cervical adenopathy Neuro: Alert, Oriented x3 Psych: Mood and affect Normal Triage Information Reviewed: Yes Vital Signs On Initial Exam: Initial Vitals Temp Pulse Resp BP Pulse Ox 98.7 F 71 20 137/59 98 05/31/18 18:24 05/31/18 18:24 05/31/18 18:24 05/31/18 18:24 05/31/18 18:24 Vital Signs Reviewed: Yes Diagnostics - Vital Signs Vital Signs Temp Pulse Resp BP Pulse Ox 05/31/18 19:09 7 05/31/18 18:39 64 23 137/59 96 05/31/18 18:34 65 98 05/31/18 18:24 98.7 F 71 20 137/59 98 - Laboratory Result Diagrams: 05/31/18 19:34 05/31/18 19:34 Lab Statement: Any lab studies that have been ordered have been reviewed, and results considered in the medical decision making process. - Radiology CXR Radiology Interpretation Completed By: ED Physician Summary of Radiographic Findings: CXR reveals, per ED physician, No acute process. Pending official report. Hip/Pelvis XR Radiology Interpretation Completed By: ED Physician Summary of Radiographic Findings: Hip/Pel XR reveals, per ED physician, right introtrocanteric femur fracture. Pending official report. Femur XR Radiology Interpretation Completed By: ED Physician Summary of Radiographic Findings: Femur XR reveals, per ED physician, right introtrocanteric femur fracture. Pending official report. - CT CT C-Spine CT Interpretation Completed By: Radiologist Summary of CT Findings: CT C-Spine reveals, per radiologist, IMPRESSION: No acute fracture identified. Of note, the bones are diffusely demineralized which limits evaluation of fine bony detail. ED physician has reviewed this radiology report. CT Brain CT Interpretation Completed By: Radiologist Summary of CT Findings: CT Brain reveals, per radiologist, IMPRESSION: No acute intracranial findings. Mild cortical volume loss and chronic white matter ischemic change. ED physician has reviewed this radiology report. - EKG 1915 Cardiac Rate: Other Rate EKG Rhythm: Atrial Fibrillation - 58 BPM Summary of EKG Findings: An EKG, taken 1915, reveals Atrial Fibrillation (58 BPM ), normal ID, normal QRS, normal QTc, normal axis, normal ST, normal T-waves. Lower Extremity Course/Dx - Course Course Of Treatment: This patient is an 83 year old female brought in by ambulance to [facility] with a chief complaint of right leg pain since 2 hours ago. Patient states that she was picking up two potted plants when she suffered a mechanical fall. Patient states that the act of picking up the plants may have made her dizzy. Patient states that she had trouble moving her leg after the fall, so she remained in place and called EMS. An EKG, taken 1915, reveals Atrial Fibrillation (58 BPM), normal ID, normal QRS, normal QTc, normal axis, normal ST, normal T-waves. CXR reveals, per ED physician, No acute process. Pending official report. Hip/Pel XR reveals, per ED physician, right introtrocanteric femur fracture. Pending official report. Femur XR reveals, per ED physician, right introtrocanteric femur fracture. Pending official report. CT C-Spine reveals, per radiologist, IMPRESSION: No acute fracture identified. Of note, the bones are diffusely demineralized which limits evaluation of fine bony detail. ED physician has reviewed this radiology report. CT Brain reveals, per radiologist, IMPRESSION: No acute intracranial findings. Mild cortical volume loss and chronic white matter ischemic change. ED physician has reviewed this radiology report. Bloodwork Obtained. Urinalysis Obtained. In the ED course the patient was given Zofran, Morphine. The pt is hemodynamically stable , alert and oriented x3. We discussed patient care with Dr. Drake (Ortho) at 2032 and they recommended admission. We discussed patient care with Dr. Adamson at 2044 and they agreed to admit the patient. Patient will be admitted with a dx of right hip fracture. The patient is agreeable with this plan. - Diagnoses Provider Diagnoses: Fracture of right hip - Physician Notifications Discussed Care Of Patient With: Josette Drake - Ortho Time Discussed With Above Provider: 20:33 - We discussed patient care with Dr. Drake (Ortho) at 2032 and they recommended admission. Instructed by Provider To: Admit As Inpatient - We discussed patient care with Dr. Adamson at 2044 and they agreed to admit the patient. Discharge - Sign-Out/Discharge Documenting (check all that apply): Patient Departure Patient Received Moderate/Deep Sedation with Procedure: No - Discharge Plan Condition: Stable Disposition: ADMITTED TO [facility] Referrals: Nima Hill DO [Primary Care Provider] - - Billing Disposition and Condition Condition: STABLE Disposition: Admitted to [facility] - Attestation Statements Document Initiated by Raoulibe: Yes Documenting Scribe: Jorge Hoffman Provider For Whom Kilo is Documenting (Include Credential): Madelin Damico MD Scribe Attestation: Jorge Jennings, scribed for Madelin Montes MD on 05/31/18 at 2116. Scribe Documentation Reviewed: Yes Provider Attestation: The documentation as recorded by the Jorge shepherd accurately reflects the service I personally performed and the decisions made by me, Madelin Montes MD Status of Scribe Document: Viewed
[2018-05-31 19:43] LABS: ABS Basophils 0 10^3/ul (0-0.2); ABS Eosinophils 0.1 10^3/ul (0-0.6); ABS Lymphocytes 2.3 10^3/ul (1.0-4.8); ABS Monocytes 0.7 10^3/ul (0-0.8); ABS Neutrophils 8.8 10^3/ul (1.5-7.7); ABS Nucleated RBC 0 10^3/ul; Eosinophil % 1.1 %; Hematocrit 42 % (33-41); Hemoglobin 14.1 g/dL (12.0-16.0); Lymphocyte % 19.1 %; Mean Corpuscular HGB Conc 34 g/dL (31-36); Mean Corpuscular Hemoglobin 29 pg (27-31); Mean Corpuscular Volume 85 fL (80-97); Mean Platelet Volume 9.3 fL (7.4-10.4); Nucleated Red Blood Cells % 0; Platelet Count 200 10^3/uL (150-450); Red Blood Count 4.95 10^6 /uL (3.70-4.87); Red Cell Distribution Width 14 % (10.5-15); White Blood Count 11.9 10^3/uL (3.5-10.8)
[2018-05-31 19:51] LABS: Activated Partial Thrombo Time 28.7 seconds (26.0-36.3); INR 1.1 (0.77-1.02)
[2018-05-31 20:00] LABS: ALT 13 U/L (7-52); AST 16 U/L (13-39); Albumin 4.3 g/dL (3.2-5.2); Albumin/Globulin Ratio 1.6 (1-3); Alkaline Phosphatase 143 U/L (34-104); Anion Gap 10 mmol/L (2-11); BUN/Creatinine Ratio 12.8 (8-20); Blood Urea Nitrogen 12 mg/dL (6-24); CO2 Carbon Dioxide 23 mmol/L (22-32); Calcium 9.4 mg/dL (8.6-10.3); Chloride 104 mmol/L (101-111); EGFR African American 68.6 (>60); EGFR Non-African American 56.7 (>60); Globulin 2.7 g/dL (2-4); Glucose 174 mg/dL (70-100); Potassium 3.8 mmol/L (3.5-5.0); Sodium 137 mmol/L (135-145)
[2018-05-31 20:02] LABS: Troponin I 0.01 ng/mL (<0.04)
[2018-05-31 20:59] LABS: Alcohol < 10 mg/dL (<10)
[2018-05-31] MEDS ORDERED: oxyCODONE/Acetamin 5/325 MG* TAB PO PRN (21:20)
[2018-05-31] MEDS ORDERED: Ondansetron INJ* 2 MG/ML VIAL IV PRN (21:20)
[2018-05-31] MEDS ORDERED: Dextrose 50% Syringe 50 ML* 25 GM/50 ML SYRINGE IV PUSH PRN (21:24)
[2018-05-31] MEDS: Enoxaparin(*) 80 MG/0.8 ML SYR SUBCUT SCH (22:32)
[2018-05-31] MEDS: Acetaminophen TAB* 325 MG PO PRN (23:25)
--- NOTE | 2018-06-01 00:09 | HP ---
CC: Dr. Hill HISTORY AND PHYSICAL: DATE OF ADMISSION: 05/31/18 PRIMARY CARE PROVIDER: Jyoti Ny. HEALTHCARE PROXY: Designated as her son, Bo. CODE STATUS: DNR. Discussed with the patient and son while in room, MOLST filled out. SOURCE: History obtained from interview of the patient and her son. RELIABILITY: Fair. CHIEF COMPLAINT: Fall, with right leg pain. HISTORY OF PRESENT ILLNESS: This is an 83-year-old female with past medical history of atrial fibrillation, on Eliquis, as well as recent bilateral pulmonary embolism in November of 2017, who had been in her usual state of health , woke up today, was seen by her family, felt okay, went to the bathroom, bent over to fix her shoelace, did feel dizzy, but sat down and recovered. She then felt that her plans outside were receiving too much wind and went outside, picked up the plants, was standing with the plants and again was lightheaded, went to move and fell, landing on her right hip. She experienced pain, but no loss of consciousness or head strike per report. She denied any chest pain or shortness of breath, nausea or vomiting, but did experience the lightheadedness after standing with the plants. She yelled for help and a neighbor found her, activated EMS, who presented and she was found with a right intertrochanteric femoral fracture. Baseline activity is walking about 1000 yards in her home, which causes fatigue, but no chest discomfort or shortness of breath. She does shop regularly at [employer], ambulates with a cart, walking about 45 minutes before feeling fatigued, but again no shortness of breath or chest discomfort. PAST MEDICAL HISTORY: Includes atrial fibrillation, on Eliquis; history of CVA approximately 3 years prior; hypertension; hyperlipidemia; bilateral PEs in November 2017; recent diagnosis of type 2 diabetes; current trial of diet control ; valvular heart disease based on most recent echocardiogram in November 2017, including mild- to-moderate aortic stenosis, moderate mitral regurgitation, mild -to-moderate tricuspid regurgitation; remote alcohol use, over 45 years prior. PAST SURGICAL HISTORY: Appendectomy. MEDICATIONS: Per patient's memory and _Dr. Van service: Daughter is to bring in her home medications tomorrow from home which include: 1. Eliquis 10 mg twice daily. 2. Crestor 10 mg. 3. Torsemide 10 mg daily. 4. Diltiazem ER 360 mg daily. ALLERGIES: CARVEDILOL and PENICILLINS. FAMILY HISTORY: Brother with CHF. SOCIAL HISTORY: Quit tobacco 25 years prior and alcohol 45 years prior. Lives alone, has no stairs in her home. REVIEW OF SYSTEMS: As per HPI, including lightheadedness when standing, otherwise all other systems are negative. PHYSICAL EXAMINATION GENERAL: Sitting up in bed, interactive, pleasant, in no apparent distress. VITAL SIGNS: When seen by this author, blood pressure 156/61, heart rate 79, respiratory rate is 16, T-max in the emergency room is 98.7. She is 99% on room air. HEENT: Oropharynx is clear. She has moist mucous membranes. Sclerae are anicteric. LUNGS: Her lungs are clear throughout. HEART: She has an irregularly irregular rate and rhythm. Approximately 1/6 systolic ejection murmur in the right upper sternal border. ABDOMEN: Her abdomen is soft and nontender. EXTREMITIES: Warm and well perfused. Her lower extremities are edematous, grade is 1+ pitting. Her right lower extremity is externally rotated, painful with movement. NEUROLOGIC: She is alert and oriented x3. Cranial nerves II through XII intact. DIAGNOSTIC STUDIES/LAB DATA: Labs reviewed, notable for BUN 12, creatinine 0.94. White blood cell count is 11.9, hemoglobin is 14.1. Serum alcohol is negative. Data reviewed, notable for right intertrochanteric femoral fracture. Brain CT: No acute intracranial findings. Mild cortical volume loss. Chest x-ray, on this author's interpretation, no active cardiopulmonary disease. EKG: Irregularly irregular, in atrial fibrillation, T-wave flattening in V6, left axis. ASSESSMENT AND PLAN: This is an 83-year-old female with past medical history as outlined above, including atrial fibrillation, hypertension, bilateral pulmonary embolisms, and diabetes, presenting with right hip fracture after a fall after standing with plants outside. 1. Right hip fracture: Last dose of Eliquis was this morning, her earliest surgery would be in 48 hours. Plan to be determined by orthopedic surgery group. Placed the patient on Lovenox to bridge until the time of surgery. The patient has declined morphine in the emergency room given her history of remote alcohol abuse. I have left order for morphine as well as oxycodone and Tylenol available if she needs or wants it. 2. History of pulmonary embolism, unprovoked, in November 2017: I have started Lovenox full dose 75 mg twice daily. This should be stopped the morning of surgery or can be transitioned to heparin if needed for other reasons. 3. Atrial fibrillation: Continue diltiazem and Lovenox for stroke prevention. 4. Type 2 diabetes: Check hemoglobin A1c. Fingersticks before meals and at bedtime, and add on hemoglobin A1c to ED labs. 5. Hypertension: Continue diltiazem. 6. Lower extremity swelling: It is chronic. This appears to be what she is on torsemide for. Continue at current dose, although notable, it may be contributing to lightheadedness when standing. 7. Surgical risk assessment: Low risk on RCRI; however, I suspect her actual risk is higher based on her age and general debility. However, she does have at least 2 METs functional capacity based on review of her activities at home. She has a recent echocardiogram with [id number] valvular disease, which is noted. I do not believe she needs any further testing prior to surgery in this author's recommendation. 8. DVT prophylaxis: Lovenox, as above. [id number]/CPS #: [id number] [facility]ITAL[facility]
[2018-06-01] MEDS: Acetaminophen TAB* 325 MG PO PRN ×2 (03:24→09:22)
--- NOTE | 2018-06-01 08:12 | PN ---
Subjective Date of Service: 06/01/18 Interval History: Ms. Jacobs is feeing ok this morning. She is having aching pain, mid right thigh. This is well controlled as long as she is not moving and has ice applied. She denies CP, SOB, N/V. She is hungry this morning. She expresses concern about BLE edema since being placed on diltiazem. She reports that her PCP placed her on this for HTN. She does not see a aperture mask etcher, but has requested to see a aperture mask etcher multiple times in the past. She reports 2 falls and 2 near falls in the last 3 weeks. She feels this has been since being placed on a diabetic diet. No concerns from nursing, but nurse requests order for SCDs. Family History: Unchanged from Admission Social History: Unchanged from Admission Past Medical History: Unchanged from Admission Objective Active Medications: Acetaminophen (Tylenol Tab*) 650 mg PO Q4H PRN FEVER/PAIN Atorvastatin Calcium (Lipitor*) 20 mg PO DAILY [facility]; Protocol Dextrose (D50w Syringe 50 Ml*) 12.5 gm IV PUSH .FOR FS < 60 - SS PRN FS < 60 Diltiazem HCl (Cardizem Cd Cap*) 360 mg PO DAILY [facility] Docusate Sodium (Colace Cap*) 100 mg PO BID JOS[facility] Enoxaparin Sodium (Lovenox(*)) 75 mg SUBCUT Q12H [facility]OS[facility] Insulin Human Lispro (Humalog*) 0 units SUBCUT ACHS JOS[facility]; Protocol Morphine Sulfate (Morphine 4 Mg/Ml Vial (1 Ml)) 4 mg IV Q4H PRN PAIN Ondansetron HCl (Zofran Inj*) 4 mg IV Q4H PRN NAUSEA/VOMITING Oxycodone/Acetaminophen (Percocet 5/325 Tab*) 1 tab PO Q4H PRN Pain Senna (Senokot Tab*) 1 tab PO BID [facility] Torsemide (Torsemide) 10 mg PO DAILY [facility] Vital Signs - 8 hr 06/01/18 03:09 Temperature 98.7 F Pulse Rate 83 Respiratory 16 Rate Blood Pressure 149/56 (mmHg) O2 Sat by Pulse 97 Oximetry Oxygen Devices in Use Now: None Eyes: No Scleral Icterus Ears/Nose/Mouth/Throat: Mucous Membranes Moist Neck: NL Appearance and Movements; NL JVP, Trachea Midline Respiratory: Symmetrical Chest Expansion and Respiratory Effort, Clear to Auscultation Cardiovascular: NL Sounds; No Murmurs; No JVD, - - Irregular Abdominal: NL Sounds; No Tenderness; No Distention Extremities: - - +1 pitting BLE Neurological: Alert and Oriented x 3 Lines/Tubes/Other Access: Clean, Dry and Intact Peripheral IV Nutrition: Taking PO's Result Diagrams: 05/31/18 19:34 05/31/18 19:34 Assess/Plan/Problems-Billing Assessment: Ms. Jacobs is an 83 yo F with PMH of afib on Eliquis, CVA, HTN, HLD, PE in 2017, and DM2; who presented to the ED after a fall d/t lightheadedness and was found to have a right hip fracture. - Patient Problems (1) Closed right hip fracture Code(s): S72.001A - FRACTURE OF UNSP PART OF NECK OF RIGHT FEMUR, INIT Comment : - Secondary to fall - Xray shows comminuted displaced angulated fracture of right proximal femur - Appreciate Ortho consult; will defer further management - Will need 48 hr washout from Eliquis prior to surgery; last dose was 05/31 AM - According to the Revised Cardiac Risk Index, the patient has a score of 1 point indicating a 6% risk of major cardiac event; the patients METS score is 5.6; EKG personally reviewed shows afib with a rate of 60; echo from 11/2017 shows EF of 55-60% and mild to moderate and TR; she does not require any further cardiac workup; the patient has been medically optimized for surgery tomorrow with Orthopedics - Continue Lovenox bridging until surgery (2) Fall Comment: - Patient reports 2 falls and 2 near falls in the last 3 weeks with associated lightheadedness - Unclear etiology; uncontrolled afib vs hypo/hyperglycemia vs orthostatic hypotension - High fall precautions (3) A-fib Code(s): I48.91 - UNSPECIFIED ATRIAL FIBRILLATION Comment: - Rate controlled - Continue diltiazem, Lovenox (4) Bilateral lower extremity edema Code(s): R60.0 - LOCALIZED EDEMA Comment: - Sounds to be chronic, but unclear etiology; possibly secondary to CCB - May be worth trialing a switch to beta javier for rate control (reaction to carvedilol was cough); will avoid any changes preop - Continue torsemide (5) HTN (hypertension) Code(s): I10 - ESSENTIAL (PRIMARY) HYPERTENSION Comment: - Slightly hypertensive, SBP 140-150s - Continue diltiazem (6) Diabetes type 2, controlled Code(s): E11.9 - TYPE 2 DIABETES MELLITUS WITHOUT COMPLICATIONS Comment: - Recent diagnosis, diet controlled - A1c 6.8% - May benefit from low dose metformin at discharge - Continue Lispro SS (7) History of pulmonary embolism Code(s): Z86.711 - PERSONAL HISTORY OF PULMONARY EMBOLISM Comment: - Bilateral PEs in November 2017 - Hold Eliquis; continue therapeutic Lovenox (8) History of CVA (cerebrovascular accident) Code(s): Z86.73 - PRSNL HX OF TIA (TIA), AND CEREB INFRC W/O RESID DEFICITS Comment: - No residual deficits - Continue atorvastatin (9) Hyperlipidemia Code(s): E78.5 - HYPERLIPIDEMIA, UNSPECIFIED Comment: - Continue atorvastatin (10) DVT prophylaxis Comment: - Lovenox (11) DNR (do not resuscitate) Comment: Status and Disposition: Inpatient for hip fracture pending surgery. Anticipate d/c to [facility] when medically stable. Attending: Roma Mohan
[2018-06-01] MEDS: Insulin LISPRO* 1 UNITS UNIT SUBCUT SCH ×4 (09:20→22:04)
[2018-06-01] MEDS: Atorvastatin* 20 MG TAB PO SCH (09:21)
[2018-06-01] MEDS: Diltiazem CD CAP* 180 MG PO SCH (09:22)
[2018-06-01] MEDS: Docusate CAP* 100 MG PO SCH ×2 (09:23→22:03)
[2018-06-01] MEDS: Senna TAB PO SCH ×2 (09:23→22:03)
[2018-06-01] MEDS: Enoxaparin(*) 80 MG/0.8 ML SYR SUBCUT SCH ×2 (10:08→22:06)
[2018-06-01] MEDS: Torsemide TAB 10 MG PO SCH (10:08)
[2018-06-01] MEDS ORDERED: oxyCODONE TAB* 5 MG TAB PO PRN ×2 (11:14→11:15)
[2018-06-01 11:24] LABS: Urine Appearance Clear; Urine Bacteria Absent (Absent); Urine Bilirubin Negative (Negative); Urine Blood 3+ (Negative); Urine Color Yellow; Urine Glucose 2+(150 mg/dL) (Negative); Urine Ketones Negative (Negative); Urine Nitrite Negative (Negative); Urine Protein Negative (Negative); Urine Red Blood Cell 3+(>10/hpf) (Absent); Urine Specific Gravity 1.009 (1.010-1.030); Urine Squamous Epithelial Cell Present (Absent); Urine Urobilinogen Negative (Negative); Urine White Blood Cell Trace(0-5/hpf) (Absent)
[2018-06-01] MEDS: Cyclobenzaprine TAB* 10 MG PO PRN (11:59)
[2018-06-01] MEDS: traMADol TAB* 50 MG PO PRN ×2 (12:00→22:03)
--- NOTE | 2018-06-01 14:39 | CONS ---
CONSULTATION REPORT: DATE OF CONSULT: 06/01/18 ATTENDING SURGEON: Dr. Josette Drake; Dr. Peter Sahu CHIEF COMPLAINT: Right leg pain after a fall. HISTORY OF PRESENT ILLNESS: The patient is an 83-year-old female with a history of atrial fibrillation, on Eliquis, and recent bilateral pulmonary embolism in November 2017, who states that she had a fall on 05/31/18 when she was moving something in her house, she felt her leg give out and then she fell directly on to her right hip. She had an immediate pain and difficulty standing. She was taken to the ER by the ambulance. In the ER, x-rays were performed which revealed subtrochanteric femoral fracture. CT scan of her head was normal. She denies numbness, tingling, fever, chills, chest pain or shortness of breath. PAST MEDICAL HISTORY: Atrial fibrillation, on Eliquis; history of CVA 3 years ago; hypertension; hyperlipidemia; bilateral PEs in November 2017; type 2 diabetes, controlled with diet. Valvular heart disease to include mild-to- moderate aortic stenosis, moderate mitral regurgitation, [id number] tricuspid regurgitation. She has a history of alcoholism and quit drinking 40 years ago. PAST SURGICAL HISTORY: Appendectomy, tubal ligation. The patient denies prior complications with anesthesia. MEDICATIONS: Home medications to include, 1. Diltiazem 360 mg 1 by mouth daily. 2. Eliquis 10 mg 1 by mouth twice a day. 3. Torsemide 10 mg 1 by mouth daily. 4. Rosuvastatin 10 mg 1 by mouth daily. ALLERGIES: CARVEDILOL and PENICILLIN. FAMILY HISTORY: Positive for brother with CHF. SOCIAL HISTORY: She is a former smoker, quit about 25 years ago and quit drinking alcohol about 40 years ago. She does have a history of alcoholism. She lives alone. No stairs in her home. REVIEW OF SYSTEMS: A 14-point review of systems was reviewed with the patient. Positive for lightheadedness with standing and current complaint, otherwise negative. Denies fevers, chills, chest pain, shortness of breath. She does have a history of bilateral pulmonary embolism. Denies history of bleeding disorder. PHYSICAL EXAM: General: An 83-year-old well-developed, well-nourished female, in no acute distress. Vital Signs: Temperature 99.4, pulse 91, respiratory rate 16, O2 saturation 96% on room air, blood pressure 153/56, height 5 feet 1 inch, weight 165 pounds, BMI 31.2. HEENT: Normocephalic, atraumatic. PERRLA. Neck: Supple. Throat clear. Cardiovascular: Regular rate and rhythm. S1 and S2. No murmurs, gallops or rubs. No edema. Pulmonary: Lungs clear to auscultation bilaterally. No wheezing, rhonchi, or rales. Abdomen: Positive bowel sounds, soft and nontender. Neuro: Alert and oriented x3. Cranial nerves grossly intact. Musculoskeletal: The patient has mild tenderness to palpation over the right hip. The skin is intact. There are no abrasions or open wounds. No obvious ecchymosis. Nontender to palpation over the rest of the right upper extremity, nontender over the bilateral upper extremities or the left lower extremity. She is able to plantar flex and dorsiflex the right ankle. +2 DP pulse. Sensation intact to light touch distally. DIAGNOSTIC STUDIES/LAB DATA: Notable labs: BUN 12, creatinine of 0.94, white blood cell count of 11.9, hemoglobin 14.1. Multi-view x-rays of the right hip revealed a right subtrochanteric femoral fracture that is displaced. Brain CT revealed no acute intracranial findings. Chest x-ray was negative for active cardiopulmonary disease. EKG, irregularly irregular, in atrial fibrillation. ASSESSMENT AND PLAN: Ariadna is an 83-year-old female who presented to the hospital with a displaced right hip subtrochanteric fracture that requires surgery. The patient is on Eliquis and her last dose was the morning of , is required to wait 48 hours, so the patient will be eligible for surgery the morning of 06/02/18. The plan is that the patient will undergo a right hip intramedullary olivier for treatment of the displaced subtrochanteric fracture of the right hip with Dr. Sahu on 06/02/18. She will be NPO after midnight tonight and her last dose of Lovenox will be this evening in preparation for surgery. RAMIRO QUILES [id number]/[facility] #: [id number] [facility]
[2018-06-02] MEDS: Cyclobenzaprine TAB* 10 MG PO PRN ×2 (03:12→10:15)
[2018-06-02 05:27] LABS: ABS Basophils 0.1 10^3/ul (0-0.2); ABS Eosinophils 0.1 10^3/ul (0-0.6); ABS Lymphocytes 2.8 10^3/ul (1.0-4.8); ABS Monocytes 0.8 10^3/ul (0-0.8); ABS Neutrophils 5.1 10^3/ul (1.5-7.7); ABS Nucleated RBC 0 10^3/ul; Eosinophil % 1.5 %; Hematocrit 36 % (33-41); Hemoglobin 12.4 g/dL (12.0-16.0); Lymphocyte % 31.4 %; Mean Corpuscular HGB Conc 35 g/dL (31-36); Mean Corpuscular Hemoglobin 29 pg (27-31); Mean Corpuscular Volume 84 fL (80-97); Mean Platelet Volume 9.7 fL (7.4-10.4); Nucleated Red Blood Cells % 0.1; Platelet Count 152 10^3/uL (150-450); Red Blood Count 4.24 10^6 /uL (3.70-4.87); Red Cell Distribution Width 13 % (10.5-15)
[2018-06-02 05:35] LABS: INR 1.02 (0.77-1.02)
[2018-06-02 05:41] LABS: BUN/Creatinine Ratio 16.4 (8-20); Calcium 8.7 mg/dL (8.6-10.3); EGFR African American 113.1 (>60); EGFR Non-African American 93.4 (>60); Magnesium 1.6 mg/dL (1.9-2.7); Potassium 3.5 mmol/L (3.5-5.0)
[2018-06-02] MEDS: Insulin LISPRO* 1 UNITS UNIT SUBCUT SCH ×4 (10:10→23:43)
[2018-06-02] MEDS: Diltiazem CD CAP* 180 MG PO SCH (10:11)
[2018-06-02] MEDS: Atorvastatin* 20 MG TAB PO SCH (10:35)
[2018-06-02] MEDS: Senna TAB PO SCH ×2 (10:35→23:55)
[2018-06-02] MEDS: Docusate CAP* 100 MG PO SCH ×2 (10:35→23:55)
[2018-06-02] MEDS: Torsemide TAB 10 MG PO SCH (10:35)
[2018-06-02 13:23] LABS: Albumin 3.8 g/dL (3.2-5.2); Albumin/Globulin Ratio 1.4 (1-3); BUN/Creatinine Ratio 14.5 (8-20); Calcium 9.1 mg/dL (8.6-10.3); EGFR Non-African American 91.7 (>60); Globulin 2.7 g/dL (2-4); Potassium 3.7 mmol/L (3.5-5.0); Total Bilirubin 0.9 mg/dL (0.2-1.0); Total Protein 6.5 g/dL (6.4-8.9)
--- NOTE | 2018-06-02 17:20 | PN ---
Progress Note - Progress Note Date of Service: 06/02/18 Note: Full consult note dictated by physician medical lab assistant. She has a reverse obliquity intertrochanteric right hip fracture that is displaced. We will plan for closed versus open reduction and internal fixation of the right hip fracture. She has been holding her eliquis.
[2018-06-02] MEDS ORDERED: fentaNYL* 50 MCG/ML 2 ML VIAL (100 MCG VIAL) IV PRN (18:07)
[2018-06-02] MEDS ORDERED: Acetaminophen IV 1GM/100ML * 1,000 MG/100 ML VIAL IVPB ONE (18:07)
[2018-06-02] MEDS ORDERED: HYDROcodone/ACETAMIN 5-325 MG* 1 TAB PO PRN (18:07)
[2018-06-02] MEDS ORDERED: oxyCODONE TAB* 5 MG TAB PO PRN (18:07)
[2018-06-02] MEDS ORDERED: Naloxone* 0.4 MG/ML 1 ML VIAL IV PRN (18:07)
[2018-06-02] MEDS ORDERED: DiMENhydriNATE IV* 50 MG/ML VIAL IV PUSH PRN (18:07)
[2018-06-02] MEDS ORDERED: fentaNYL* 50 MCG/ML 2 ML VIAL (100 MCG VIAL) ONE ×3 (18:14→21:48)
[2018-06-02] MEDS ORDERED: Propofol* 10 MG/ML 20 ML BTL ONE (18:15)
[2018-06-02] MEDS ORDERED: Lidocaine 2% PF * 5 ML VIAL ONE (18:15)
[2018-06-02] MEDS ORDERED: Clindamycin 900 MG IVPREMIX(* 900 MG/50 ML SDV IV ONE (18:24)
--- NOTE | 2018-06-02 18:37 | PN ---
Subjective Date of Service: 06/02/18 Interval History: Patient has pain in RT hip when moved. Complains of dry mouth. Has been NPO all day w/ only sips of water this morning for diltiazem. Reports good functional status, vacuums own house prior to fall. Was gardening 2 days ago when she fell. Surgery delayed initially due to use of DOAC for a-fib. Family History: Unchanged from Admission Social History: Unchanged from Admission Past Medical History: Unchanged from Admission Objective Active Medications: Acetaminophen (Tylenol Tab*) 650 mg PO Q4H PRN PRN Reason: FEVER/PAIN Last Admin: 06/01/18 09:22 Dose: 650 mg Hydrocodone Bitart/Acetaminophen ([place] 5-325 Tab*) 1 tab PO ONCE PRN PRN Reason: PAIN - MODERATE Atorvastatin Calcium (Lipitor*) 20 mg PO DAILY [facility]; Protocol Last Admin: 06/02/18 10:35 Dose: Not Given Cyclobenzaprine HCl (Flexeril Tab*) 5 mg PO TID PRN PRN Reason: muscle spasms/mild pain Last Admin: 06/02/18 10:15 Dose: 5 mg Dextrose (D50w Syringe 50 Ml*) 12.5 gm IV PUSH .FOR FS < 60 - SS PRN PRN Reason: FS < 60 Diltiazem HCl (Cardizem Cd Cap*) 360 mg PO DAILY [facility] Last Admin: 06/02/18 10:11 Dose: 360 mg Dimenhydrinate (Dramamine Iv*) 12.5 mg IV PUSH ONCE PRN PRN Reason: NAUSEA/VOMITING Docusate Sodium (Colace Cap*) 100 mg PO BID [facility] Last Admin: 06/02/18 10:35 Dose: Not Given Fentanyl Citrate (Fentanyl*) 25 mcg IV Q5M PRN PRN Reason: PAIN - MODERATE Acetaminophen (Ofirmev*) 1,000 mg in 100 mls @ 400 mls/hr IVPB ONCE ONE Stop: 06/02/18 18:21 Insulin Human Lispro (Humalog*) 0 units SUBCUT ACHS [facility]; Protocol Last Admin: 06/02/18 12:47 Dose: Not Given Morphine Sulfate (Morphine 4 Mg/Ml Vial (1 Ml)) 4 mg IV Q4H PRN PRN Reason: PAIN Naloxone HCl (Narcan*) 0.08 mg IV Q2M PRN PRN Reason: severe induced resp depression Ondansetron HCl (Zofran Inj*) 4 mg IV Q4H PRN PRN Reason: NAUSEA/VOMITING Oxycodone HCl (Roxycodone Tab*) 5 mg PO Q4H PRN PRN Reason: PAIN - MODERATE Oxycodone HCl (Roxycodone Tab*) 10 mg PO Q4H PRN PRN Reason: PAIN - MODERATE TO SEVERE Oxycodone HCl (Roxycodone Tab*) 5 mg PO ONCE PRN PRN Reason: PAIN - MODERATE Senna (Senokot Tab*) 1 tab PO BID [facility] Last Admin: 06/02/18 10:35 Dose: Not Given Torsemide (Torsemide) 10 mg PO DAILY [facility] Last Admin: 06/02/18 10:35 Dose: Not Given Tramadol HCl (Ultram*) 50 mg PO Q6H PRN PRN Reason: PAIN - MILD TO MODERATE Last Admin: 06/01/18 22:03 Dose: 50 mg Vital Signs - 8 hr 06/02/18 06/02/18 06/02/18 11:11 14:54 16:27 Temperature 37.1 C 37.2 C 36.3 C Pulse Rate 96 82 100 Respiratory 18 20 18 Rate Blood Pressure 154/88 122/56 178/88 (mmHg) O2 Sat by Pulse 97 98 95 Oximetry Oxygen Devices in Use Now: None Appearance: alert, no distress Ears/Nose/Mouth/Throat: Clear Oropharnyx Neck: NL Appearance and Movements; NL JVP Respiratory: Symmetrical Chest Expansion and Respiratory Effort, Clear to Auscultation Cardiovascular: NL Sounds; No Murmurs; No JVD, RRR Abdominal: NL Sounds; No Tenderness; No Distention Extremities: - - RT hip externally rotated Neurological: Alert and Oriented x 3 Lines/Tubes/Other Access: Clean, Dry and Intact Peripheral IV Nutrition: Taking PO's Result Diagrams: 06/02/18 04:54 06/02/18 12:59 Additional Lab and Data: Laboratory Tests 06/02/18 06/02/18 06/02/18 04:54 07:34 12:07 POC Glucose (mg/dL) 148 H 137 H Magnesium 1.6 L 06/02/18 16:49 POC Glucose (mg/dL) 131 H Magnesium Microbiology and Other Data: Microbiology 06/01/18 06:00 Urine Culture - Final Urine Assess/Plan/Problems-Billing Assessment: Ms. Jacobs is an 83 yo F with PMH of afib on Eliquis, CVA, HTN, HLD, PE in 2017, and DM2; who presented to the ED after a fall d/t lightheadedness and was found to have a right hip fracture. - Patient Problems (1) Closed right hip fracture Current Visit: Yes Status: Acute Priority: High Code(s): S72.001A - FRACTURE OF UNSP PART OF NECK OF RIGHT FEMUR, INIT SNOMED Code(s): 124522696 Comment: - Advise proceed to OR today, pre-op cardiac risk is acceptable (2) Hyponatremia Current Visit: Yes Status: Acute Priority: Medium Code(s): E87.1 - HYPO- OSMOLALITY AND HYPONATREMIA SNOMED Code(s): 64837771 Comment: -likely multifactorial, had loop diuretic yesterday. -pain and nausea also cause SIADH in elderly -recommend NS infusion while in OR and post-op, 75-125 ml/hr -Will recheck BMP in AM (3) DVT prophylaxis Current Visit: No Status: Acute Priority: Medium Code(s): ILC5460 - SNOMED Code(s): 073357364 Comment: - DOAC on hold for 2 days - Lovenox has been used for bridge - restart lovenox tomorrow if hemostasis normal (4) Diabetes type 2, controlled Current Visit: Yes Status: Acute Priority: Medium Code(s): E11.9 - TYPE 2 DIABETES MELLITUS WITHOUT COMPLICATIONS SNOMED Code(s): 60387337 Comment: - Recent diagnosis, diet controlled - A1c 6.8% - Continue Lispro SS Status and Disposition: Inpatient for hip fracture pending surgery. Anticipate d/c to [facility] when medically stable.
[2018-06-02] MEDS ORDERED: Phenylephrine 40 MCG/ML SYRINGE ONE (18:58)
[2018-06-02] MEDS ORDERED: Bupivacaine 0.25% EPI 200,000* 30 ML SDV ONE (19:26)
[2018-06-02] MEDS ORDERED: Bupivacaine 0.5% W/EPI SDV* 30 ML VIAL ONE (19:28)
[2018-06-02] MEDS ORDERED: Ondansetron INJ* 2 MG/ML VIAL ONE (20:18)
[2018-06-02] MEDS ORDERED: Acetaminophen IV 1GM/100ML * 100 ML ONE (21:48)
[2018-06-03] MEDS: NS 0.9% 1000 ML** 1,000 ML IV SCH ×2 (00:44→21:06)
[2018-06-03 05:28] LABS: ABS Basophils 0 10^3/ul (0-0.2); ABS Eosinophils 0 10^3/ul (0-0.6); ABS Lymphocytes 1.6 10^3/ul (1.0-4.8); ABS Neutrophils 6.5 10^3/ul (1.5-7.7); ABS Nucleated RBC 0 10^3/ul; Eosinophil % 0.2 %; Hematocrit 30 % (33-41); Hemoglobin 10.6 g/dL (12.0-16.0); Lymphocyte % 17.1 %; Mean Corpuscular HGB Conc 35 g/dL (31-36); Mean Corpuscular Hemoglobin 30 pg (27-31); Mean Corpuscular Volume 84 fL (80-97); Mean Platelet Volume 9.4 fL (7.4-10.4); Nucleated Red Blood Cells % 0; Platelet Count 143 10^3/uL (150-450); Red Blood Count 3.59 10^6 /uL (3.70-4.87); Red Cell Distribution Width 14 % (10.5-15); White Blood Count 9.1 10^3/uL (3.5-10.8)
[2018-06-03 05:46] LABS: BUN/Creatinine Ratio 16.3 (8-20); Calcium 8.1 mg/dL (8.6-10.3); EGFR African American 82.7 (>60); EGFR Non-African American 68.3 (>60); Potassium 4.1 mmol/L (3.5-5.0)
--- NOTE | 2018-06-03 06:15 | OP ---
DATE OF OPERATION: 06/02/18 - ROOM #349 DATE OF : 33 SURGEON: Peter Sahu MD MARGARINE MAKER: RAMIRO Jamison ANESTHESIOLOGIST: Dr. Harris. ANESTHESIA: General. PRE-OP DIAGNOSIS: Right displaced reverse obliquity peritrochanteric hip fracture. POST-OP DIAGNOSIS: Right displaced reverse obliquity peritrochanteric hip fracture. OPERATIVE PROCEDURE: Closed reduction and internal fixation with long Gamma nail of right hip peritrochanteric reverse obliquity hip fracture. INDICATIONS: Ariadna is 83 years old, she had a fall, she fractured the right hip. Risks and benefits were discussed. Her and her son wanted to proceed with surgery. ESTIMATED BLOOD LOSS: 150 mL. COMPLICATIONS: Initially with the final fixation, she was distracted through the fracture and the femur was long, so we had to remove the distal cross locks and let off some of the distraction to get the femur back to the correct length. FINDINGS: See above and below. DESCRIPTION OF PROCEDURE: Ariadna was seen in the preoperative holding area. The correct side, site, and procedure were identified. We came back to the operating room. The patient was positioned on the fracture table with the right leg in traction and the left leg in the well leg magana. The leg was prescrubbed and then draped with shower curtain and then time-out was performed. I had confirmed the reduction on AP and lateral imaging prior to prepping and draping. I first marked out my trajectory of the guidewire and then made a 5 cm incision proximal to the greater trochanter. The tensor was split, the guidewire was placed on to the tip of the greater troch and confirmed on AP and lateral imaging. I then advanced it down past the lesser trochanter. The opening drill bit then was used to open up the femur. The long ball tipped guidewire was then placed down to the level of the superior aspect of the patella. I measured and selected a 360 mm nail. I then reamed over the nail up to 13 and then placed an 11 mm by 125 degree by 360 mm long Gamma nail. This was advanced down to the appropriate location. I then placed my triple barrel guide for my lag screw and placed the pin up into the central center position. This was confirmed on AP and lateral imaging. I measured and selected a 90 mm screw. I then over drilled and placed the screw in standard fashion. The final positioning of the screw was confirmed on AP and lateral imaging and then the set screw was applied proximally. The guide for the lag screw was removed and then the insertion device for the nail was removed as well. Lastly, we came down. I got perfect circles on AP and lateral imaging. I did let the leg into some abduction when we did this. The perfect circles were obtained and then I placed one screw in the statical and then one screw in the dynamic position distally. This went uneventfully, one was a 40 mm screw, the other one was 45 mm screw. The final fluoroscopic imaging showed good placement of the Gamma nail. I had gotten into a little bit of apex anterior angulation of the fracture site with placement of the nail, but otherwise things were looking very nice. We irrigated out the wound. The fascia proximally was closed with 0 Vicryl, the subcutaneous tissue was reapproximated with 2-0 Vicryl suture, and the skin was closed with marlee. Xeroform, 4x4's, and foam tape dressings were applied. I then went ahead and let her out of traction and we rebuilt the fracture table. Upon rebuilding the fracture table, I squared up her pelvis and noted that the right leg was about an inch to an inch and a half longer than the left leg. I therefore decided that I needed to remove the distal cross locks and take off some of the traction so as to not have her leave the operating with a leg length discrepancy. I therefore went ahead and put the right leg back into the traction device, the left leg in the well leg magana, everything was secured with Coban. The C-arm was brought back in and we had a perfect [place] imaging. We then moved that out of the way. I then removed the marlee and we prepped the leg with Betadine scrub and block draped out the area of the distal cross locks. We then had a time-out and I then proceeded to remove the 2 distal cross locks, these came off uneventfully. I went ahead and let her out of all of the traction that was built into the traction and we got about an inch worth of length that was visualized on the fluoroscopy. We were maximally out of traction at this point and so went ahead and placed 1 screw in the dynamic hole in the most distal position to allow for another 5-10 mm of shortening as she bears weight. This was done with perfect [place] imaging, it was a new 45 mm screw. Final fluoroscopic imaging confirmed good placement. The wound was again irrigated out. Skin was closed with marlee. Wound was dressed with Xeroform, 4x4's, and foam tape. She was again let out of the traction device and the fracture table was rebuilt and this time the leg lengths were excellent. She was only just a few millimeters long on the right, which will set nicely once she puts some weight on the leg, and so I was very pleased. She was then woken up and taken to the recovery room in stable condition. [id number]/CPS #: [id number] KAYLEIGH
[2018-06-03] MEDS: Atorvastatin* 20 MG TAB PO SCH (08:30)
[2018-06-03] MEDS: Torsemide TAB 10 MG PO SCH (08:30)
[2018-06-03] MEDS: Docusate CAP* 100 MG PO SCH ×2 (08:30→20:06)
[2018-06-03] MEDS: Senna TAB PO SCH ×2 (08:30→20:06)
[2018-06-03] MEDS: Diltiazem CD CAP* 180 MG PO SCH (08:30)
[2018-06-03] MEDS: Cyclobenzaprine TAB* 10 MG PO PRN ×2 (08:31→16:44)
[2018-06-03] MEDS ORDERED: Apixaban* 5 MG TAB PO SCH (09:00)
[2018-06-03] MEDS: Insulin LISPRO* 1 UNITS UNIT SUBCUT SCH ×4 (10:03→20:20)
--- NOTE | 2018-06-03 10:11 | PN ---
Progress Note - Progress Note Date of Service: 06/03/18 SOAP: Subjective: []Patient was seen and examined at bedside with her family present. Her pain is well controlled today. Denies CP, SOB, dizziness or nausea. Objective: []General: Appears well, NAD RLE: Dressing CDI, thigh is soft, DF/PF intact, sensation intact to light touch distally, DP2+ Calves supple and nontender without erythema, edema or palpable cords Assessment: []Reverse obliquity intertrochanteric right hip fracture POD 1 sp long gamma nail 06/02 Dr Sahu Plan: []WBAT PT/OT Resume home dose of Eliquis for DVT prophylaxis. Dose should be eliquis 5 mg po BID confirmed with patient Vital Signs Temp 98.4 F 06/03/18 07:44 Pulse 94 06/03/18 07:44 Resp 16 06/03/18 08:31 BP 130/53 06/03/18 07:44 Pulse Ox 95 06/03/18 07:44 Intake & Output 06/02/18 06/03/18 06/03/18 18:59 06:59 18:59 Intake Total 0 2500 Output Total 750 1025 Balance -750 1475 Weight 165 lb 0.009 oz Intake: IV Fluids 0 2400 LR 0 2000 NS 300 tylenol 100 Oral 100 Output: Santos 750 875 Estimated Blood Loss 150 Other: # Bowel Movements 0 Laboratory Last Values WBC 9.1 10^3/uL (3.5-10.8) 06/03/18 05:10 RBC 3.59 10^6 /uL (3.70-4.87) L 06/03/18 05:10 Hgb 10.6 g/dL (12.0-16.0) L 06/03/18 05:10 Hct 30 % (33-41) L 06/03/18 05:10 MCV 84 fL (80-97) 06/03/18 05:10 MCH 30 pg (27-31) 06/03/18 05:10 MCHC 35 g/dL (31-36) 06/03/18 05:10 RDW 14 % (10.5-15) 06/03/18 05:10 Plt Count 143 10^3/uL (150-450) L 06/03/18 05:10 MPV 9.4 fL (7.4-10.4) 06/03/18 05:10 Neut % (Auto) 71.5 % 06/03/18 05:10 Lymph % (Auto) 17.1 % 06/03/18 05:10 [place] % (Auto) 11.0 % 06/03/18 05:10 Eos % (Auto) 0.2 % 06/03/18 05:10 Baso % (Auto) 0.2 % 06/03/18 05:10 Absolute Neuts (auto) 6.5 10^3/ul (1.5-7.7) 06/03/18 05:10 Absolute Lymphs (auto) 1.6 10^3/ul (1.0-4.8) 06/03/18 05:10 Absolute Monos (auto) 1.0 10^3/ul (0-0.8) H 06/03/18 05:10 Absolute Eos (auto) 0 10^3/ul (0-0.6) 06/03/18 05:10 Absolute Basos (auto) 0 10^3/ul (0-0.2) 06/03/18 05:10 Absolute Nucleated RBC 0 10^3/ul 06/03/18 05:10 Nucleated RBC % 0 06/03/18 05:10 INR (Anticoag Therapy) 1.02 (0.77-1.02) 06/02/18 04:54 APTT 28.7 seconds (26.0-36.3) 05/31/18 19:34 Sodium 129 mmol/L (135-145) L 06/03/18 05:10 Potassium 4.1 mmol/L (3.5-5.0) 06/03/18 05:10 Chloride 99 mmol/L (101-111) L 06/03/18 05:10 Carbon Dioxide 24 mmol/L (22-32) 06/03/18 05:10 Anion Gap 6 mmol/L (2-11) 06/03/18 05:10 BUN 13 mg/dL (6-24) 06/03/18 05:10 Creatinine 0.80 mg/dL (0.51-0.95) 06/03/18 05:10 Est GFR ( Amer) 82.7 (>60) 06/03/18 05:10 Est GFR (Non-Af Amer) 68.3 (>60) 06/03/18 05:10 BUN/Creatinine Ratio 16.3 (8-20) 06/03/18 05:10 Glucose 213 mg/dL (70-100) H 06/03/18 05:10 POC Glucose (mg/dL) 174 mg/dL (70-100) H 06/03/18 08:23 Hemoglobin A1c 6.8 % (4.0-5.6) H 05/31/18 19:34 Lactic Acid 1.7 mmol/L (0.5-2.0) 05/31/18 19:34 Calcium 8.1 mg/dL (8.6-10.3) L 06/03/18 05:10 Magnesium 1.6 mg/dL (1.9-2.7) L 06/02/18 04:54 Total Bilirubin 0.90 mg/dL (0.2-1.0) 06/02/18 12:59 AST 16 U/L (13-39) 06/02/18 12:59 ALT 10 U/L (7-52) 06/02/18 12:59 Alkaline Phosphatase 120 U/L (34-104) H 06/02/18 12:59 Troponin I 0.00 ng/mL (<0.04) 05/31/18 23:32 Total Protein 6.5 g/dL (6.4-8.9) 06/02/18 12:59 Albumin 3.8 g/dL (3.2-5.2) 06/02/18 12:59 Globulin 2.7 g/dL (2-4) 06/02/18 12:59 Albumin/Globulin Ratio 1.4 (1-3) 06/02/18 12:59 Urine Color Yellow 06/01/18 06:00 Urine Appearance Clear 06/01/18 06:00 Urine pH 7.0 (5-9) 06/01/18 06:00 Ur Specific [place] 1.009 (1.010-1.030) L 06/01/18 06:00 Urine Protein Negative (Negative) 06/01/18 06:00 Urine Ketones Negative (Negative) 06/01/18 06:00 Urine Blood 3+ (Negative) A 06/01/18 06:00 Urine Nitrate Negative (Negative) 06/01/18 06:00 Urine Bilirubin Negative (Negative) 06/01/18 06:00 Urine Urobilinogen Negative (Negative) 06/01/18 06:00 Ur Leukocyte Esterase Negative (Negative) 06/01/18 06:00 Urine WBC (Auto) Trace(0-5/hpf) (Absent) 06/01/18 06:00 Urine RBC (Auto) 3+(>10/hpf) (Absent) A 06/01/18 06:00 Ur Squamous Epith Cells Present (Absent) A 06/01/18 06:00 Urine Bacteria Absent (Absent) 06/01/18 06:00 Urine Glucose 2+(150 mg/dl) (Negative) A 06/01/18 06:00 Serum Alcohol < 10 mg/dL (<10) 05/31/18 19:34
[2018-06-03] MEDS: Acetaminophen TAB* 325 MG PO PRN ×2 (13:38→18:04)
--- NOTE | 2018-06-03 19:17 | PN ---
Subjective Date of Service: 06/03/18 Interval History: Procedure, pinning RT hip, went well last night. Patient sore in area, has been OOB to chair. Denies chest pain, dyspnea. Family History: Unchanged from Admission Social History: Unchanged from Admission Past Medical History: Unchanged from Admission Objective Active Medications: Acetaminophen (Tylenol Tab*) 650 mg PO Q4H PRN PRN Reason: FEVER/PAIN Last Admin: 06/03/18 18:04 Dose: 650 mg Apixaban (Eliquis*) 5 mg PO BID [facility] Atorvastatin Calcium (Lipitor*) 20 mg PO DAILY [facility]; Protocol Last Admin: 06/03/18 08:30 Dose: 20 mg Cyclobenzaprine HCl (Flexeril Tab*) 5 mg PO TID PRN PRN Reason: muscle spasms/mild pain Last Admin: 06/03/18 16:44 Dose: 5 mg Dextrose (D50w Syringe 50 Ml*) 12.5 gm IV PUSH .FOR FS < 60 - SS PRN PRN Reason: FS < 60 Diltiazem HCl (Cardizem Cd Cap*) 360 mg PO DAILY [facility] Last Admin: 06/03/18 08:30 Dose: 360 mg Docusate Sodium (Colace Cap*) 100 mg PO BID [facility] Last Admin: 06/03/18 08:30 Dose: 100 mg Sodium Chloride (Ns 0.9% 1000 Ml) 1,000 mls @ 100 mls/hr IV PER RATE [facility] Last Admin: 06/03/18 00:44 Dose: 100 mls/hr Insulin Human Lispro (Humalog*) 0 units SUBCUT ACHS [facility]; Protocol Last Admin: 06/03/18 18:03 Dose: 2 unit Morphine Sulfate (Morphine 4 Mg/Ml Vial (1 Ml)) 4 mg IV Q4H PRN PRN Reason: PAIN Ondansetron HCl (Zofran Inj*) 4 mg IV Q4H PRN PRN Reason: NAUSEA/VOMITING Oxycodone HCl (Roxycodone Tab*) 5 mg PO Q4H PRN PRN Reason: PAIN - MODERATE Oxycodone HCl (Roxycodone Tab*) 10 mg PO Q4H PRN PRN Reason: PAIN - MODERATE TO SEVERE Senna (Senokot Tab*) 1 tab PO BID [facility] Last Admin: 06/03/18 08:30 Dose: 1 tab Torsemide (Torsemide) 10 mg PO DAILY [facility] Last Admin: 06/03/18 08:30 Dose: 10 mg Tramadol HCl (Ultram*) 50 mg PO Q6H PRN PRN Reason: PAIN - MILD TO MODERATE Last Admin: 06/01/18 22:03 Dose: 50 mg Vital Signs - 8 hr 06/03/18 06/03/18 06/03/18 11:15 11:29 15:49 Temperature 37.2 C 37.2 C Pulse Rate 78 97 Respiratory 16 16 16 Rate Blood Pressure 113/49 130/40 (mmHg) O2 Sat by Pulse 96 97 Oximetry 06/03/18 06/03/18 06/03/18 15:52 16:00 16:44 Temperature 37.2 C Pulse Rate 97 Respiratory 16 16 Rate Blood Pressure 130/40 (mmHg) O2 Sat by Pulse 97 97 Oximetry Oxygen Devices in Use Now: None Appearance: alert, no distress Neck: NL Appearance and Movements; NL JVP Respiratory: Clear to Auscultation Cardiovascular: NL Sounds; No Murmurs; No JVD, No Edema, - - irregular Abdominal: NL Sounds; No Tenderness; No Distention Lymphatic: No Cervical Adenopathy Extremities: No Edema Lines/Tubes/Other Access: Clean, Dry and Intact Peripheral IV Nutrition: Taking PO's Result Diagrams: 06/03/18 05:10 06/03/18 05:10 Additional Lab and Data: Laboratory Tests 06/03/18 06/03/18 06/03/18 05:10 08:23 11:34 Glucose 213 H POC Glucose (mg/dL) 174 H 210 H 06/03/18 16:39 Glucose POC Glucose (mg/dL) 246 H Assess/Plan/Problems-Billing Assessment: Ms. Jacobs is an 83 yo F with PMH of afib on Eliquis, CVA, HTN, HLD, PE in 2017, and DM2; who presented to the ED after a fall d/t lightheadedness and was found to have a right hip fracture. - Patient Problems (1) Closed right hip fracture Current Visit: Yes Status: Acute Priority: High Code(s): S72.001A - FRACTURE OF UNSP PART OF NECK OF RIGHT FEMUR, INIT SNOMED Code(s): 180612162 Comment: - Post-op day 1, doing well, plan for [facility] stay, then return home (2) Hyponatremia Current Visit: Yes Status: Acute Priority: Medium Code(s): E87.1 - HYPO- OSMOLALITY AND HYPONATREMIA SNOMED Code(s): 84372005 Comment: -likely multifactorial, no worse today, holding torsemide tomorrow. -pain and nausea also causing SIADH -continue NS infusion through tomorrow -Will recheck BMP in AM (3) DVT prophylaxis Current Visit: No Status: Acute Priority: Medium Code(s): KJA6930 - SNOMED Code(s): 671730453 Comment: - restarted on Eliquis 5 BID today appropriately - high risk due to previous PE (4) Diabetes type 2, controlled Current Visit: Yes Status: Acute Priority: Medium Code(s): E11.9 - TYPE 2 DIABETES MELLITUS WITHOUT COMPLICATIONS SNOMED Code(s): 89628461 Comment: - Recent diagnosis, diet controlled at home, but requiring insulin now due to post-op inflammation - Continue Lispro SS Status and Disposition: Anticipate d/c to [facility] or [facility] in 1-2 days.
[2018-06-03] MEDS: Apixaban* 5 MG TAB PO SCH (20:06)
[2018-06-04 05:11] LABS: Hematocrit 26 % (33-41); Hemoglobin 9.3 g/dL (12.0-16.0)
[2018-06-04] MEDS: Acetaminophen TAB* 325 MG PO PRN (06:00)
[2018-06-04 08:21] VITALS: BP 131/43
[2018-06-04] MEDS: Docusate CAP* 100 MG PO SCH (09:18)
[2018-06-04] MEDS: Atorvastatin* 20 MG TAB PO SCH (09:18)
[2018-06-04] MEDS: Senna TAB PO SCH (09:18)
[2018-06-04] MEDS: Apixaban* 5 MG TAB PO SCH (09:19)
[2018-06-04] MEDS: Diltiazem CD CAP* 180 MG PO SCH (09:19)
[2018-06-04] MEDS: Cyclobenzaprine TAB* 10 MG PO PRN (09:19)
[2018-06-04] MEDS: Insulin LISPRO* 1 UNITS UNIT SUBCUT SCH (09:20)
--- NOTE | 2018-06-04 09:21 | PN ---
Progress Note - Progress Note Date of Service: 06/04/18 SOAP: Subjective: []Pt seen at bedside. She feels well, hip pain is well controlled. Denies CP, SOB, dizziness, nausea. Objective: []General: Appears well, NAD RLE: Dressing changed, incisions are CDI, thigh is soft, DF/PF intact, sensation intact to light touch distally, DP2+ Calves supple and nontender without erythema, edema or palpable cords Assessment: []Reverse obliquity intertrochanteric right hip fracture POD 2 sp long gamma nail 06/02 Dr Sahu Plan: []WBAT PT/OT Eliquis 5mg po BID [facility] today Vital Signs Temp 98.8 F 06/04/18 07:58 Pulse 104 06/04/18 07:58 Resp 14 06/04/18 07:58 BP 131/43 06/04/18 07:58 Pulse Ox 94 06/04/18 07:58 Intake & Output 06/03/18 06/04/18 06/04/18 18:59 06:59 18:59 Intake Total 620 2784 Output Total 600 2200 Balance 20 584 Intake: IV Fluids 1983 NS 1983 Oral 620 800 Output: Santos 600 2200 Other: # Bowel Movements 0 Laboratory Last Values WBC 9.1 10^3/uL (3.5-10.8) 06/03/18 05:10 RBC 3.59 10^6 /uL (3.70-4.87) L 06/03/18 05:10 Hgb 9.3 g/dL (12.0-16.0) L 06/04/18 05:02 Hct 26 % (33-41) L 06/04/18 05:02 MCV 84 fL (80-97) 06/03/18 05:10 MCH 30 pg (27-31) 06/03/18 05:10 MCHC 35 g/dL (31-36) 06/03/18 05:10 RDW 14 % (10.5-15) 06/03/18 05:10 Plt Count 143 10^3/uL (150-450) L 06/03/18 05:10 MPV 9.4 fL (7.4-10.4) 06/03/18 05:10 Neut % (Auto) 71.5 % 06/03/18 05:10 Lymph % (Auto) 17.1 % 06/03/18 05:10 [place] % (Auto) 11.0 % 06/03/18 05:10 Eos % (Auto) 0.2 % 06/03/18 05:10 Baso % (Auto) 0.2 % 06/03/18 05:10 Absolute Neuts (auto) 6.5 10^3/ul (1.5-7.7) 06/03/18 05:10 Absolute Lymphs (auto) 1.6 10^3/ul (1.0-4.8) 06/03/18 05:10 Absolute Monos (auto) 1.0 10^3/ul (0-0.8) H 06/03/18 05:10 Absolute Eos (auto) 0 10^3/ul (0-0.6) 06/03/18 05:10 Absolute Basos (auto) 0 10^3/ul (0-0.2) 06/03/18 05:10 Absolute Nucleated RBC 0 10^3/ul 06/03/18 05:10 Nucleated RBC % 0 06/03/18 05:10 INR (Anticoag Therapy) 1.02 (0.77-1.02) 06/02/18 04:54 APTT 28.7 seconds (26.0-36.3) 05/31/18 19:34 Sodium 131 mmol/L (135-145) L 06/04/18 05:02 Potassium 4.1 mmol/L (3.5-5.0) 06/03/18 05:10 Chloride 99 mmol/L (101-111) L 06/03/18 05:10 Carbon Dioxide 24 mmol/L (22-32) 06/03/18 05:10 Anion Gap 6 mmol/L (2-11) 06/03/18 05:10 BUN 13 mg/dL (6-24) 06/03/18 05:10 Creatinine 0.80 mg/dL (0.51-0.95) 06/03/18 05:10 Est GFR ( Amer) 82.7 (>60) 06/03/18 05:10 Est GFR (Non-Af Amer) 68.3 (>60) 06/03/18 05:10 BUN/Creatinine Ratio 16.3 (8-20) 06/03/18 05:10 Glucose 213 mg/dL (70-100) H 06/03/18 05:10 POC Glucose (mg/dL) 162 mg/dL (70-100) H 06/04/18 07:40 Hemoglobin A1c 6.8 % (4.0-5.6) H 05/31/18 19:34 Serum Osmolality 284 mOsm/kg (275-295) 06/04/18 05:02 Lactic Acid 1.7 mmol/L (0.5-2.0) 05/31/18 19:34 Calcium 8.1 mg/dL (8.6-10.3) L 06/03/18 05:10 Magnesium 1.6 mg/dL (1.9-2.7) L 06/02/18 04:54 Total Bilirubin 0.90 mg/dL (0.2-1.0) 06/02/18 12:59 AST 16 U/L (13-39) 06/02/18 12:59 ALT 10 U/L (7-52) 06/02/18 12:59 Alkaline Phosphatase 120 U/L (34-104) H 06/02/18 12:59 Troponin I 0.00 ng/mL (<0.04) 05/31/18 23:32 Total Protein 6.5 g/dL (6.4-8.9) 06/02/18 12:59 Albumin 3.8 g/dL (3.2-5.2) 06/02/18 12:59 Globulin 2.7 g/dL (2-4) 06/02/18 12:59 Albumin/Globulin Ratio 1.4 (1-3) 06/02/18 12:59 Urine Color Yellow 06/01/18 06:00 Urine Appearance Clear 06/01/18 06:00 Urine pH 7.0 (5-9) 06/01/18 06:00 Ur Specific [place] 1.009 (1.010-1.030) L 06/01/18 06:00 Urine Protein Negative (Negative) 06/01/18 06:00 Urine Ketones Negative (Negative) 06/01/18 06:00 Urine Blood 3+ (Negative) A 06/01/18 06:00 Urine Nitrate Negative (Negative) 06/01/18 06:00 Urine Bilirubin Negative (Negative) 06/01/18 06:00 Urine Urobilinogen Negative (Negative) 06/01/18 06:00 Ur Leukocyte Esterase Negative (Negative) 06/01/18 06:00 Urine WBC (Auto) Trace(0-5/hpf) (Absent) 06/01/18 06:00 Urine RBC (Auto) 3+(>10/hpf) (Absent) A 06/01/18 06:00 Ur Squamous Epith Cells Present (Absent) A 06/01/18 06:00 Urine Bacteria Absent (Absent) 06/01/18 06:00 Urine Glucose 2+(150 mg/dl) (Negative) A 06/01/18 06:00 Serum Alcohol < 10 mg/dL (<10) 05/31/18 19:34
[2018-06-04] MEDS: NS 0.9% 1000 ML** 1,000 ML IV SCH (10:41)
--- NOTE | 2018-06-05 13:19 | TRS ---
TRANSFER SUMMARY: DATE OF ADMISSION: 05/31/18 DATE OF TRANSFER: 06/04/18 ACCEPTING PHYSICIAN: Dr. Reyez in the [facility]. PRIMARY DIAGNOSIS: Right intertrochanteric hip fracture, status post internal fixation with [address] Sahu. SECONDARY DIAGNOSES: Includes: 1. Atrial fibrillation, on anticoagulation with Eliquis. 2. History of stroke. 3. Hypertension. 4. Hyperlipidemia. 5. History of bilateral pulmonary emboli in November 2017. 6. Type 2 diabetes, diet controlled. 7. Yoae-si-lgawlqij aortic stenosis. 8. Moderate mitral regurgitation. 9. History of alcohol abuse. MEDICATIONS ON DISCHARGE: 1. Apixaban 5 mg p.o. b.i.d. 2. Acetaminophen 650 mg p.o. q. 4 hours p.r.n. pain. 3. Rosuvastatin 10 mg p.o. q.h.s. 4. Diltiazem ER 360 mg p.o. daily. HOSPITAL COURSE: An 83-year-old woman who sustained a mechanical fall at home with right hip fracture. Please see history and physical for full details of this complicated medical admission. In short, the patient was admitted by Dr. Adamson and treated with pain control and immobilization of the right hip. She had her Eliquis held for 2 days to allow safe surgery without excessive bleeding. During the period of being held, she was treated for DVT prophylaxis with subcutaneous Lovenox. She was seen in consultation by Dr. Sahu who took her to the operating room on 06/02/18 for internal fixation of the displaced intertrochanteric hip fracture on the right. He treated this with the long Gamma nail x2 without any significant complications. Estimated blood loss was 150 mL. Other medical issues occurred during the hospital stay: Her sodium was 137 on admission which fell to 128 on 06/02/18. She was taken off her torsemide diuretic at that time and given normal saline because she was thought to be volume depleted due to her n.p.o. status. 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 Her sodium on discharge was 131 which was low but safe for discharge. Her diabetes was in good control for the first 2 days but after surgery, her sugars were 210 to 246. She required a sliding scale insulin and she will be considered to be started on Lantus while she is in the [facility]. We will suggest starting 10 units a day and continuing with sliding scale insulin. Her A1c was 6.8 showing good control prior to admission. On postop day #2, her apixaban was restarted and her Lovenox stopped. We clarified her outpatient medication reconciliation which stated 10 mg b.i.d. of apixaban but this was not correct and she is sent to the [facility] on 5 b.i.d. which is indicated for prevention of embolism from AFib, prevention of DVT from hip fracture and prevention of recurrent PE as well. DISPOSITION: [facility] for acute rehab. ACTIVITY: Should be weightbearing as tolerated per Physical Therapy. DIET: Diabetic. STATUS: Her status during the hospital stay was full, inpatient. CONDITION: Stable. TIME SPENT: I spent 40 minutes coordinating this discharge and completing necessary documentation and seeing the patient on the day of discharge. [id number]/CPS #: [id number] MTDD
== END 2018-06-04 10:55 | DRG 481 ==
LOC: ED 17:51 → SSU 21:20
PROVIDERS: ADMIT Internal Medicine; ATTEND Internal Medicine
PROC: 0QS634Z Reposition Right Upper Femur with Internal Fixation Device, Percutaneous Approach (ICD-10-PCS; principal; 2018-06-02 18:30)
DX: S72.21XA Displaced subtrochanteric fracture of right femur, initial encounter for closed fracture (principal); E22.2 Syndrome of inappropriate secretion of antidiuretic hormone; I10 Essential (primary) hypertension; I48.91 Unspecified atrial fibrillation; E78.5 Hyperlipidemia, unspecified; E11.9 Type 2 diabetes mellitus without complications; I08.3 Combined rheumatic disorders of mitral, aortic and tricuspid valves; R60.0 Localized edema; W01.0XXA Fall on same level from slipping, tripping and stumbling without subsequent striking against object, initial encounter; Y92.008 Other place in unspecified non-institutional (private) residence as the place of occurrence of the external cause; Z88.0 Allergy status to penicillin; Z88.8 Allergy status to other drugs, medicaments and biological substances; Z82.49 Family history of ischemic heart disease and other diseases of the circulatory system; Z87.891 Personal history of nicotine dependence; Z86.73 Personal history of transient ischemic attack (TIA), and cerebral infarction without residual deficits; Z86.711 Personal history of pulmonary embolism; Z98.51 Tubal ligation status; Z79.01 Long term (current) use of anticoagulants
CPT/HCPCS: 36415; 70450; 71045; 72125; 80048; 80053; 80320; 81003; 81015; 83036; 83605; 83735; 83930; 84300; 84484; 85014; 85018; 85025; 85610; 85730; 87086; 93005; 99284; A9270-GY; C1713; C1776; G0480; G8978-GP-CL; G8979-GP-CI; G8987-GO-CL; G8988-GO-CI; J1650; J2270; J2405; J2704; J3010

== ENCOUNTER 2018-06-04 09:27 | Inpatient (IN) | payer MEDICARE, MEDICAID ==
[2018-06-04] MEDS ORDERED: Senna TAB PO PRN (12:04)
[2018-06-04] MEDS ORDERED: Magnesium Hydroxide LIQ* 30 ML UDC PO PRN (12:04)
[2018-06-04] MEDS ORDERED: Dextrose 50% Syringe 50 ML* 25 GM/50 ML SYRINGE IV PUSH PRN (12:10)
[2018-06-04] MEDS: Acetaminophen TAB* 325 MG PO PRN ×2 (13:37→21:37)
[2018-06-04] MEDS: Insulin LISPRO* 1 UNITS UNIT SUBCUT SCH ×3 (13:38→21:37)
[2018-06-04] MEDS ORDERED: NS 0.9% 1000 ML** 1,000 ML IV SCH (14:30)
[2018-06-04] MEDS: Methocarbamol TAB* 500 MG PO PRN (16:16)
[2018-06-04] MEDS: Docusate CAP* 100 MG PO SCH (21:36)
[2018-06-04] MEDS: Apixaban* 5 MG TAB PO SCH (21:36)
--- NOTE | 2018-06-04 21:56 | HP ---
ADMISSION HISTORY AND PHYSICAL: DATE OF ADMISSION: 06/04/18. REASON FOR ADMISSION: Right hip fracture. HISTORY OF PRESENT ILLNESS: Ariadna Jacobs is an 83-year-old white female. She was recently diagnosed with diabetes mellitus. She does have a history of atrial fibrillation as well as bilateral pulmonary embolism. She takes Eliquis for anticoagulation. On 05/31/18, the patient was on her patio moving plants. She picked up one of her plants and turned to go back into the house, but as she twisted, she felt her right leg give out and she fell onto her right side. A neighbor witnessed this and called 911. She was brought by ambulance to [facility]. X-rays of her right hip at [facility] revealed a displaced angulated fracture of the proximal right femur. She was seen in consultation by Dr. Sahu. She was made n.p.o. and her anticoagulation withheld. She was taken to the operating room on 06/02/18 and underwent a closed reduction and internal fixation with a long gamma nail of the right hip. The patient postoperatively was restarted on her Eliquis. She had a slightly low sodium. Her torsemide was held. She was kept on a sliding scale insulin coverage for her diabetes. She was felt to have physical therapy and occupational therapy needs. She is now being admitted for inpatient rehab so that she might return to independent living. PAST MEDICAL HISTORY: Significant for the aforementioned atrial fibrillation, pulmonary embolism. She has a history of a small stroke approximately 3 years ago. Hypertension and hyperlipidemia. She had [id number]-[id number] aortic stenosis and vhznzcxw-pd-cwpeoe regurg on her most recent echo and she has had an appendectomy. MEDICATIONS: Current medications include: 1. Eliquis. 2. Lipitor. 3. Cardizem CD. 4. Sliding scale insulin. 5. Oxycodone. 6. Tylenol. 7. Tramadol. ALLERGIES: To COREG and PENICILLIN. SOCIAL HISTORY: She is a nonsmoker, nondrinker. Lives by herself in the apartments at [facility]. It is a one story apartment with no steps to enter. She has a daughter and a son, who live nearby and 2 other daughters, who live out of the area. REVIEW OF SYSTEMS: The patient reports no current shortness of breath or chest pain. PHYSICAL EXAMINATION VITAL SIGNS: The patient's temperature is 98.0, blood pressure is 135/41, pulse is 74, respirations 22. HEENT: Her extraocular movements are intact. Tongue is midline. NECK: Supple. LUNGS: Sound clear to auscultation bilaterally. HEART: Sounds are irregular. S1 and S2 are audible. ABDOMEN: Soft and nontender. EXTREMITIES: Her feet are edematous. Her wound is clean and dry. Peripheral pulses are intact. NEUROLOGIC: She was awake, alert, and oriented. Muscle strength appeared to be 5/5 except the right lower extremity, which was 3/5 secondary to pain. FUNCTIONAL EXAM: She transfers with min assist. ASSESSMENT: Right hip fracture, status post closed reduction and internal fixation of the same. PLAN/RECOMMENDATIONS: Integrate her into a comprehensive and therapeutic rehab program with the following goals: 1. Physical Therapy will see the patient. They are going to work on functional transfer training, ambulation training with a walker. 2. Occupational Therapy will see the patient and work on her activities of daily living including toileting and toilet transfers. 3. For her atrial fibrillation, continue Eliquis and Cardizem. 4. Eliquis for DVT prophylaxis. 5. For her diabetes, continue sliding scale insulin. 6. We are going to restart her torsemide and follow her sodium level. 7. Adequate analgesia. 8. Her bowels will be regulated. 9. director of student services will be closely involved to make sure that any services and equipment that the patient requires are in place prior to discharge. 10. Family training as appropriate. 11. Home with appropriate services. ESTIMATED LENGTH OF STAY: Ten to 14 days. [id number] #: [id number] MTDD
[2018-06-05] MEDS: Insulin LISPRO* 1 UNITS UNIT SUBCUT SCH ×4 (08:14→21:28)
[2018-06-05] MEDS: Acetaminophen TAB* 325 MG PO PRN ×2 (08:16→21:19)
[2018-06-05] MEDS: Torsemide TAB 10 MG PO SCH (08:16)
[2018-06-05] MEDS: Docusate CAP* 100 MG PO SCH ×2 (08:16→21:21)
[2018-06-05] MEDS: Diltiazem CD CAP* 180 MG PO SCH (08:16)
[2018-06-05] MEDS: Apixaban* 5 MG TAB PO SCH ×2 (08:16→21:21)
[2018-06-05] MEDS: Methocarbamol TAB* 500 MG PO PRN ×2 (08:17→21:18)
[2018-06-05] MEDS: traMADol TAB* 50 MG PO PRN (13:50)
[2018-06-05 13:57] LABS: Urine Appearance Cloudy; Urine Bacteria Absent (Absent); Urine Bilirubin Negative (Negative); Urine Blood 1+ (Negative); Urine Color Yellow; Urine Glucose Negative (Negative); Urine Ketones Negative (Negative); Urine Nitrite Negative (Negative); Urine Protein Negative (Negative); Urine Red Blood Cell 1+(3-5/hpf) (Absent); Urine Specific Gravity 1.005 (1.010-1.030); Urine Squamous Epithelial Cell Present (Absent); Urine Urobilinogen Negative (Negative); Urine White Blood Cell 3+(>20/hpf) (Absent)
[2018-06-05] MEDS: Atorvastatin* 20 MG TAB PO SCH (17:44)
--- NOTE | 2018-06-05 21:20 | PN ---
Progress Note Date of Service: 06/05/18 Note: BRITTANEY RENDON was visited. Therapy notes read and reviewed. Her urine was foul smelling and appeared cloudy. A U/A was sent and appeared c/w a UTI. She is allergic to PCN. I will start Macrodantin Current Medications: Active Medications Generic Name Dose Route Start Last Admin Trade Name Freq PRN Reason Stop Dose Admin Acetaminophen 650 mg 06/04/18 12:04 06/05/18 08:16 Tylenol Tab* PO 650 mg Q6H PRN Administration FEVER/PAIN Apixaban 5 mg 06/04/18 21:00 06/05/18 08:16 Eliquis* PO 5 mg BID JOSÉ Administration Atorvastatin Calcium 20 mg 06/05/18 17:00 06/05/18 17:44 Lipitor* PO 20 mg 1700 JOSÉ Administration Dextrose 12.5 gm 06/04/18 12:10 D50w Syringe 50 Ml* IV PUSH .FOR FS < 60 - SS PRN FS < 60 Diltiazem HCl 360 mg 06/05/18 09:00 06/05/18 08:16 Cardizem Cd Cap* PO 360 mg DAILY OJSÉ Administration Docusate Sodium 100 mg 06/04/18 21:00 06/05/18 08:16 Colace Cap* PO 100 mg BID JOSÉ Administration Insulin Human Lispro 0 - 10 units 06/04/18 12:30 06/05/18 17:43 Humalog* SUBCUT 1 units ACHS JOSÉ Administration Protocol Magnesium Hydroxide 30 ml 06/04/18 12:04 Milk Of Magnesia Liq* PO Q6H PRN CONSTIPATION Methocarbamol 750 mg 06/04/18 14:27 06/05/18 08:17 Robaxin Tab* PO 750 mg TID PRN Administration SPASMS Oxycodone HCl 5 mg 06/04/18 14:10 Roxycodone Tab* PO Q4H PRN PAIN - SEVERE Senna 2 tab 06/04/18 12:04 Senokot Tab* PO BEDTIME PRN CONSTIPATION Torsemide 10 mg 06/05/18 09:00 06/05/18 08:16 Torsemide PO 10 mg DAILY JOSÉ Administration Tramadol HCl 50 mg 06/04/18 14:25 06/05/18 13:50 Ultram* PO 50 mg Q6H PRN Administration PAIN - MODERATE Vital Signs: Vital Signs Temp Pulse Resp BP Pulse Ox 98.2 F 76 18 131/48 98 06/05/18 14:42 06/05/18 14:42 06/05/18 16:00 06/05/18 14:42 06/05/18 14:42 Lab Results: Laboratory Results - last 24 hr 06/04/18 06/05/18 06/05/18 21:12 07:34 12:11 POC Glucose (mg/dL) 175 H 172 H 147 H Urine Color Urine Appearance Urine pH Ur Specific [place] Urine Protein Urine Ketones Urine Blood Urine Nitrate Urine Bilirubin Urine Urobilinogen Ur Leukocyte Esterase Urine WBC (Auto) Urine RBC (Auto) Ur Squamous Epith Cells Urine Bacteria Urine Glucose 06/05/18 06/05/18 13:08 16:54 POC Glucose (mg/dL) 134 H Urine Color Yellow Urine Appearance Cloudy Urine pH 5.0 Ur Specific [place] 1.005 L Urine Protein Negative Urine Ketones Negative Urine Blood 1+ A Urine Nitrate Negative Urine Bilirubin Negative Urine Urobilinogen Negative Ur Leukocyte Esterase 3+ A Urine WBC (Auto) 3+(>20/hpf) A Urine RBC (Auto) 1+(3-5/hpf) A Ur Squamous Epith Cells Present A Urine Bacteria Absent Urine Glucose Negative Exam: GENERAL: Alert, in no distress LUNGS: clear bilaterally HEART: reg rhythm ABDOMEN: Soft, +BS EXTREMITIES: Right hip wound C/D/I. Pulse present NEUROLOGIC: Alert. Sensation slightly diminished in feet. Moves all 4 extremities. RLE weak due to fracture Assessment/Plan: 1. Right Hip Fracture: WBAT. PT/OT. Follow up with Dr. Sahu 2. Diabetes: SSI 3. Atrial Fibrillation: Cardizem/Eliquis 4. Urinary Tract Infection: Follow up Urine culture. Macrodantin 5. DVT Prophylaxis: Eliquis 6. Advance Directives: Has MOLST. DNR 7. Hyponatremia: Check lytes in am 06/05/18 21:26 06/05/18 21:26
[2018-06-05] MEDS: Nitrofurantoin Macrocrystals* 50 MG CAP PO SCH (23:01)
[2018-06-06] MEDS: Nitrofurantoin Macrocrystals* 50 MG CAP PO SCH ×4 (03:35→21:34)
[2018-06-06] MEDS: Acetaminophen TAB* 325 MG PO PRN ×2 (05:16→20:06)
[2018-06-06 06:00] LABS: ABS Basophils 0.1 10^3/ul (0-0.2); ABS Eosinophils 0.2 10^3/ul (0-0.6); ABS Lymphocytes 1.9 10^3/ul (1.0-4.8); ABS Monocytes 0.8 10^3/ul (0-0.8); ABS Neutrophils 4.2 10^3/ul (1.5-7.7); ABS Nucleated RBC 0 10^3/ul; Eosinophil % 2.7 %; Hematocrit 24 % (33-41); Hemoglobin 8.3 g/dL (12.0-16.0); Lymphocyte % 26.9 %; Mean Corpuscular HGB Conc 35 g/dL (31-36); Mean Corpuscular Hemoglobin 29 pg (27-31); Mean Corpuscular Volume 84 fL (80-97); Nucleated Red Blood Cells % 0.1; Platelet Count 181 10^3/uL (150-450); Red Blood Count 2.82 10^6 /uL (3.70-4.87); Red Cell Distribution Width 14 % (10.5-15); White Blood Count 7.2 10^3/uL (3.5-10.8)
[2018-06-06 06:19] LABS: Albumin/Globulin Ratio 1.3 (1-3); Calcium 8.4 mg/dL (8.6-10.3); EGFR African American 115.2 (>60); EGFR Non-African American 95.2 (>60); Globulin 2.4 g/dL (2-4); Potassium 3.7 mmol/L (3.5-5.0); Total Bilirubin 1.1 mg/dL (0.2-1.0); Total Protein 5.4 g/dL (6.4-8.9)
[2018-06-06] MEDS: Insulin LISPRO* 1 UNITS UNIT SUBCUT SCH ×4 (08:11→21:32)
[2018-06-06] MEDS: Methocarbamol TAB* 500 MG PO PRN (08:12)
[2018-06-06] MEDS: Torsemide TAB 10 MG PO SCH (08:12)
[2018-06-06] MEDS: Apixaban* 5 MG TAB PO SCH ×2 (08:12→20:07)
[2018-06-06] MEDS: Docusate CAP* 100 MG PO SCH ×2 (08:12→20:07)
[2018-06-06] MEDS: Diltiazem CD CAP* 180 MG PO SCH (08:12)
[2018-06-06] MEDS: oxyCODONE TAB* 5 MG TAB PO PRN (12:12)
--- NOTE | 2018-06-06 12:21 | PN ---
Progress Note Date of Service: 06/06/18 Note: BRITTANEY RENDON was visited. Nursing and therapy notes read and reviewed. She would like more education on her diabetes since she was just diagnosed last month. Also she reports her PCP started her on cardizem for "blood pressure" and has continued to increase doses despite it causing edema. She is also on torsemide at home to treat edema. She has atrial fibrillation as well and is on eliquis for recent PEs. She would like to see a osd clerk either here or as an outpatient. Started macrodantin yesterday for possible UTI. Current Medications: Active Medications Generic Name Dose Route Start Last Admin Trade Name Freq PRN Reason Stop Dose Admin Acetaminophen 650 mg 06/04/18 12:04 06/06/18 05:16 Tylenol Tab* PO 650 mg Q6H PRN Administration FEVER/PAIN Apixaban 5 mg 06/04/18 21:00 06/06/18 08:12 Eliquis* PO 5 mg BID JOSÉ Administration Atorvastatin Calcium 20 mg 06/05/18 17:00 06/05/18 17:44 Lipitor* PO 20 mg 1700 JOSÉ Administration Dextrose 12.5 gm 06/04/18 12:10 D50w Syringe 50 Ml* IV PUSH .FOR FS < 60 - SS PRN FS < 60 Diltiazem HCl 360 mg 06/05/18 09:00 06/06/18 08:12 Cardizem Cd Cap* PO 360 mg DAILY JOSÉ Administration Docusate Sodium 100 mg 06/04/18 21:00 06/06/18 08:12 Colace Cap* PO 100 mg BID JOSÉ Administration Insulin Human Lispro 0 - 10 units 06/04/18 12:30 06/06/18 08:11 Humalog* SUBCUT 2 units ACHS JOSÉ Administration Protocol Magnesium Hydroxide 30 ml 06/04/18 12:04 Milk Of Magnesia Liq* PO Q6H PRN CONSTIPATION Methocarbamol 750 mg 06/04/18 14:27 06/06/18 08:12 Robaxin Tab* PO 750 mg TID PRN Administration SPASMS Nitrofurantoin Macrocrystals 50 mg 06/05/18 22:00 06/06/18 09:53 Macrodantin* PO 06/10/18 23:59 50 mg Q6H JOSÉ Administration Oxycodone HCl 5 mg 06/04/18 14:10 Roxycodone Tab* PO Q4H PRN PAIN - SEVERE Senna 2 tab 06/04/18 12:04 Senokot Tab* PO BEDTIME PRN CONSTIPATION Torsemide 10 mg 06/05/18 09:00 06/06/18 08:12 Torsemide PO 10 mg DAILY JOSÉ Administration Tramadol HCl 50 mg 06/04/18 14:25 06/05/18 13:50 Ultram* PO 50 mg Q6H PRN Administration PAIN - MODERATE Vital Signs: Vital Signs Temp Pulse Resp BP Pulse Ox 98.1 F 89 18 146/59 98 06/06/18 05:16 06/06/18 05:16 06/06/18 09:55 06/06/18 05:16 06/06/18 05:16 Lab Results: Laboratory Results - last 24 hr 06/05/18 06/05/18 06/05/18 12:11 13:08 16:54 WBC RBC Hgb Hct MCV MCH MCHC RDW Plt Count MPV Neut % (Auto) Lymph % (Auto) [place] % (Auto) Eos % (Auto) Baso % (Auto) Absolute Neuts (auto) Absolute Lymphs (auto) Absolute Monos (auto) Absolute Eos (auto) Absolute Basos (auto) Absolute Nucleated RBC Nucleated RBC % Sodium Potassium Chloride Carbon Dioxide Anion Gap BUN Creatinine Est GFR ( Amer) Est GFR (Non-Af Amer) BUN/Creatinine Ratio Glucose POC Glucose (mg/dL) 147 H 134 H Calcium Total Bilirubin AST ALT Alkaline Phosphatase Total Protein Albumin Globulin Albumin/Globulin Ratio Urine Color Yellow Urine Appearance Cloudy Urine pH 5.0 Ur Specific [place] 1.005 L Urine Protein Negative Urine Ketones Negative Urine Blood 1+ A Urine Nitrate Negative Urine Bilirubin Negative Urine Urobilinogen Negative Ur Leukocyte Esterase 3+ A Urine WBC (Auto) 3+(>20/hpf) A Urine RBC (Auto) 1+(3-5/hpf) A Ur Squamous Epith Cells Present A Urine Bacteria Absent Urine Glucose Negative 06/05/18 06/06/18 06/06/18 20:57 05:52 05:52 WBC 7.2 RBC 2.82 L Hgb 8.3 L Hct 24 L MCV 84 MCH 29 MCHC 35 RDW 14 Plt Count 181 MPV 9.0 Neut % (Auto) 58.7 Lymph % (Auto) 26.9 [place] % (Auto) 10.6 Eos % (Auto) 2.7 Baso % (Auto) 1.1 Absolute Neuts (auto) 4.2 Absolute Lymphs (auto) 1.9 Absolute Monos (auto) 0.8 Absolute Eos (auto) 0.2 Absolute Basos (auto) 0.1 Absolute Nucleated RBC 0 Nucleated RBC % 0.1 Sodium 131 L Potassium 3.7 Chloride 101 Carbon Dioxide 22 Anion Gap 8 BUN 12 Creatinine 0.60 Est GFR ( Amer) 115.2 Est GFR (Non-Af Amer) 95.2 BUN/Creatinine Ratio 20.0 Glucose 151 H POC Glucose (mg/dL) 157 H Calcium 8.4 L Total Bilirubin 1.10 H AST 20 ALT 18 Alkaline Phosphatase 100 Total Protein 5.4 L Albumin 3.0 L Globulin 2.4 Albumin/Globulin Ratio 1.3 Urine Color Urine Appearance Urine pH Ur Specific [place] Urine Protein Urine Ketones Urine Blood Urine Nitrate Urine Bilirubin Urine Urobilinogen Ur Leukocyte Esterase Urine WBC (Auto) Urine RBC (Auto) Ur Squamous Epith Cells Urine Bacteria Urine Glucose 06/06/18 11:48 WBC RBC Hgb Hct MCV MCH MCHC RDW Plt Count MPV Neut % (Auto) Lymph % (Auto) [place] % (Auto) Eos % (Auto) Baso % (Auto) Absolute Neuts (auto) Absolute Lymphs (auto) Absolute Monos (auto) Absolute Eos (auto) Absolute Basos (auto) Absolute Nucleated RBC Nucleated RBC % Sodium Potassium Chloride Carbon Dioxide Anion Gap BUN Creatinine Est GFR ( Amer) Est GFR (Non-Af Amer) BUN/Creatinine Ratio Glucose POC Glucose (mg/dL) 140 H Calcium Total Bilirubin AST ALT Alkaline Phosphatase Total Protein Albumin Globulin Albumin/Globulin Ratio Urine Color Urine Appearance Urine pH Ur Specific [place] Urine Protein Urine Ketones Urine Blood Urine Nitrate Urine Bilirubin Urine Urobilinogen Ur Leukocyte Esterase Urine WBC (Auto) Urine RBC (Auto) Ur Squamous Epith Cells Urine Bacteria Urine Glucose Exam: GENERAL: no acute distress. alert and appropriate LUNGS: clear to auscultation bilaterally HEART: irregularly irregular ABDOMEN: Soft, + bowel sounds, non-tender, non-distended EXTREMITIES: Right hip wound C/D/I. 2+ pedal pulses. Edema in right leg greater than left, but improving per patient. No calf pain. Negative Homans. NEUROLOGIC: Motor 5/5 BUE/BLE except pain limited testing right hip and knee. Sensation intact x4. Assessment/Plan: 1. Right Hip Fracture: WBAT. PT/OT. Follow up with Dr. Sahu 2. Diabetes: SSI. Consistent carb diet. Nutrition consult and diabetes education 3. Atrial Fibrillation/hypertension: Cardizem/torsemide/Eliquis. I have requested records from J[facility]. She says she had an ECHO in the past. After review of [facility] records when available I will at her request at the very least refer to a osd clerk as an outpatient. 4. Urinary Tract Infection: Follow up Urine culture. Macrodantin day #2 5. 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 Advance Directives: Has MOLST. DNR 7. Hyponatremia: stable. f/u labs next week 8. Acute post-op anemia: recheck cbc in AM for trend. 9. Hyperbilirubinemia: not symptomatic. f/u labs next week. 10. Advanced directives: DNR 11. Estimated LOS: [facility] today. 06/06/18 12:15
--- NOTE | 2018-06-06 12:49 | PMRUTEAM ---
PMRU: Team Meeting Current Status: Nursing: Current Status Skin Deviations [Right Hip] Incision Skin Deviation Description [ x 3. intact with clips. mod serosang drainage to Right Hip] proximal and middle. small serosang drainage from distal. incisions washed with soap and water. telfa x1, 4-4x4's applied to all three incisions. Physical Therapy: Current Status Bed Mobility Assistance mod assist Transfer Mobility Assistance contact guard to mod assist Transfer/Bed Mobility Rolling Walker Recommended Devices Ambulation Assistance Contact Guard Assist Ambulation Assistive Devices Rolling Walker Number of Feet Patient 10' x 2 Ambulated Stairs Assistance Not Tested Stairs Recommended Devices Two Rails Number of Stairs 6 Curb Not Tested Occupational Therapy: Current Status Upper Body Dressing Supervision Lower Body Dressing max assist Bathing Mod Assist Toileting Total Assist Toilet Transfer Min Assist Shower Transfer not tested Eating Supervision Rec Therapy: Current Status Summary of Assessment and Pt. was open to conversation - alert and pleasant. Clinical Impression Pt. states she wishes there were more for her to do through her new community - "everybody just keeps to themselves". Pt. expressed some frustration with this. Pt. loves her dog very much because she spends a lot of time by herself, stating "I don't really hear from my kids unless its a holiday". Treatment Goals Pt. will engage in leisure while on the unit. Treatment Plan Provide recreation services. Goals: Physical Therapy: Initial Goals Bed Mobility Assistance Independent Transfer Mobility Assistance Independent Transfer/Bed Mobility Rolling Walker Recommended Devices Ambulation Independent Ambulation Recommended Devices Rolling Walker Ambulation Distance 150 Stairs Assistance Independent Stair Recommended Devices Two Rails Number of Stairs 5 Occupational Therapy: Initial Goals Goals to be Completed in (Days 10-14 ) Upper Body Bathing Routine Modified Independent with Lower Body Bathing Routine Modified Independent with Upper Body Dressing Routine Independent Lower Body Dressing Routine Modified Independent with Toilet Hygeine and Clothing Modified Independent with Management Routine Toilet Transfer Routine Modified Independent with Tub Transfer Routine Modified Independent with Functional Transfers for ADL Modified Independent with Grooming Routine Independent Feeding Routine Independent Light Housekeeping Tasks Modified Independent with Light Housekeeping Tasks Gregory for light meal prep Assistive Devices Care Plan: Care Plan ADL's - Improve/Maintain Start: 06/04/18 15:11 Freq: DAILY Status: Active Target: Protocol: Activity Type Activity Date Activity User E-Sign Co-Sign Detail Recorded Client Recorded Date Recorded By Document 06/05/18 16:27 [id number] [id number] 06/05/18 16:28 [id number] 06/05/18 16:27 PMRU Outcome: ADL's/ADL Transfers Orders/Interventions Occupational Therapy Evaluation & Treatment Communication Tool in Patient Room Device Yes Address Deficits Secondary To: right hip fx Patient to receive OT 5x/wk for 60-120 Therex min/day Self Care Management Group Therapy UE/LE ADL's with Assist Yes: Gregory ADL Transfers with Assist Yes: Gregory Toileting: Transfers,Clothing Management Yes: Gregory ,Hygeine w/Assist Light Kitchen/Laundry w/Assist Yes: Gregory for light meal prep Progression Toward Outcome/Goals Progressing Outcome/Goals Met Pt participated in ADL treatment session as described above , pt completed transfer recliner chair to/from w/c with modA x 2 and v/c's for use of walker and movement of feet, pt with limited WB on RLE which makes it difficult to step with LLE. Pt completed Hector UE therex 3 x 10 reps of shoulder flexion with 2# dumbells to increase Hector UE strength and activity tolerance. Cardiovascular- Improve/Maintain Start: 06/04/18 12:12 Freq: QSHIFT Status: Active Target: Protocol: Activity Type Activity Date Activity User E-Sign Co-Sign Detail Recorded Client Recorded Date Recorded By Document 06/06/18 11:55 [id number] [id number] 06/06/18 12:00 [id number] 06/06/18 11:55 PMRU Outcome: Cardiovascular Vital Signs q Shift for 48hrs Then BID Yes Daily Weight Ordered No Current Cardiovascular Outcome/Goal Maintain/ Achieve Baseline HR, BP , Perfusion Free of Abnormal Cardiac Symptoms Progression Toward Outcome/Goal Progressing DVT Prophylaxis- Improve/Maintain Start: 06/04/18 12:12 Freq: QSHIFT Status: Active Target: Protocol: Activity Type Activity Date Activity User E-Sign Co-Sign Detail Recorded Client Recorded Date Recorded By Document 06/06/18 11:55 [id number] [id number] 06/06/18 12:00 [id number] 06/06/18 11:55 PMRU Outcome: DVT Prophylaxis Outcome/Goals Remains Free of DVT Complies with DVT Prophylaxis /Treatment Demonstrates Knowledge of DVT Prevention/ Treatment TEDS Stockings on Every AM, Off at HS Progression Toward Outcome/Goals Progressing Discharge Planning - Improve/Maintain Start: 06/04/18 12:12 Freq: DAILY Status: Active Target: Protocol: Activity Type Activity Date Activity User E-Sign Co-Sign Detail Recorded Client Recorded Date Recorded By Document 06/06/18 03:02 [id number] [email or web address] 06/06/18 03:02 [id number] 06/06/18 03:02 PMRU Outcome: Discharge Planning Update Patient Family No Outcome/Goals Demonstrates Understanding of Discharge Plan Progression Toward Outcome/Goals Progressing Education-Improve/Maintain Start: 06/04/18 12:12 Freq: QSHIFT Status: Active Target: Protocol: Activity Type Activity Date Activity User E-Sign Co-Sign Detail Recorded Client Recorded Date Recorded By Document 06/06/18 11:55 [id number] 06/06/18 12:00 [id number] 06/06/18 11:55 PMRU Outcome: Education Outcome/Goals Demonstrates Skills Encourage Questions Progression Toward Outcome/Goals Progressing Medication Administration Start: 06/04/18 12:12 Freq: QSHIFT Status: Active Target: Protocol: Activity Type Activity Date Activity User E-Sign Co-Sign Detail Recorded Client Recorded Date Recorded By Document 06/06/18 11:55 [id number] 06/06/18 12:00 [id number] 06/06/18 11:55 PMRU Outcome: Medication Administration Assess Patient Knowledge/Teach Med Yes Education for all Meds Outcome/Goals Patient Independent with Medication Administration at Home Progression Towards Outcome/Goals Progressing Is Patient Going Home on Lovenox? No Pain/Comfort- Improve/Maintain Start: 06/04/18 12:12 Freq: QSHIFT Status: Active Target: Protocol: Activity Type Activity Date Activity User E-Sign Co-Sign Detail Recorded Client Recorded Date Recorded By Document 06/06/18 11:55 [id number] [email or web address] 06/06/18 12:00 [id number] 06/06/18 11:55 PMRU Outcome: Pain/Comfort Outcome/Goals Demonstrates Knowledge and Use of Available Comfort Measures Achieves Acceptable Comfort/Pain Level as Determined by Patient/Condit Maintain Comfort Level Allowing Patient to Fully Participate in Rehab Progression Toward Outcome/Goals Progressing Outcome/Goals Met Comment robaxin given this AM Safety- Improve/Maintain Start: 06/04/18 12:12 Freq: QSHIFT Status: Active Target: Protocol: Activity Type Activity Date Activity User E-Sign Co-Sign Detail Recorded Client Recorded Date Recorded By Document 06/06/18 11:55 [id number] [email or web address] 06/06/18 12:00 [id number] 06/06/18 11:55 PMRU Outcome: Safety Outcome/Goals Remain Free of Injury or Harm Prevent Falls/ Injury Progression Toward Outcome/Goals Progressing Outcome/Goals Met Comment BA armed when in bed, PA on when in chair Skin- Improve/Maintain Start: 06/04/18 12:12 Freq: QSHIFT Status: Active Target: Protocol: Activity Type Activity Date Activity User E-Sign Co-Sign Detail Recorded Client Recorded Date Recorded By Document 06/06/18 11:55 [id number] [email or web address] 06/06/18 12:00 [id number] 06/06/18 11:55 PMRU Outcome: Skin Skin Risk Level Medium Skin Orders Dressing Change Turn/Position q2hr While in Bed Outcome/Goals Free from Decubitus Surgical Incisions Healing Progression Toward Outcome/Goals Progressing Outcome/Goals Met Comment r hip drsgs changed Medicine Note: Length of Stay: [2 more weeks] Anticipated Discharge Destination: home Tentative Discharge Date: [06/20/18] Discharged to: [home]
[2018-06-06] MEDS: Atorvastatin* 20 MG TAB PO SCH (18:06)
[2018-06-06] MEDS: traMADol TAB* 50 MG PO PRN (18:46)
[2018-06-07] MEDS: traMADol TAB* 50 MG PO PRN (01:21)
[2018-06-07 05:17] LABS: Hematocrit 26 % (33-41); Hemoglobin 8.7 g/dL (12.0-16.0); Mean Corpuscular HGB Conc 34 g/dL (31-36); Mean Corpuscular Hemoglobin 29 pg (27-31); Mean Corpuscular Volume 85 fL (80-97); Mean Platelet Volume 8.8 fL (7.4-10.4); Platelet Count 219 10^3/uL (150-450); Red Blood Count 3.01 10^6 /uL (3.70-4.87); Red Cell Distribution Width 14 % (10.5-15); White Blood Count 7.2 10^3/uL (3.5-10.8)
[2018-06-07 05:28] LABS: ABS Basophils 0 10^3/ul (0-0.2); ABS Eosinophils 0.2 10^3/ul (0-0.6); ABS Lymphocytes 1.9 10^3/ul (1.0-4.8); ABS Monocytes 0.8 10^3/ul (0-0.8); ABS Neutrophils 4.4 10^3/ul (1.5-7.7); ABS Nucleated RBC 0 10^3/ul; Eosinophil % 2.2 %; Lymphocyte % 25.8 %; Nucleated Red Blood Cells % 0.1
[2018-06-07] MEDS: Nitrofurantoin Macrocrystals* 50 MG CAP PO SCH ×4 (05:59→21:35)
[2018-06-07] MEDS: Acetaminophen TAB* 325 MG PO PRN (06:03)
[2018-06-07] MEDS: Insulin LISPRO* 1 UNITS UNIT SUBCUT SCH ×4 (08:24→21:35)
[2018-06-07] MEDS: Torsemide TAB 10 MG PO SCH (08:27)
[2018-06-07] MEDS: Diltiazem CD CAP* 180 MG PO SCH (08:28)
[2018-06-07] MEDS: Apixaban* 5 MG TAB PO SCH ×2 (08:28→21:34)
[2018-06-07] MEDS: Docusate CAP* 100 MG PO SCH ×2 (08:28→21:35)
--- NOTE | 2018-06-07 10:21 | PN ---
Progress Note Date of Service: 06/07/18 Note: BRITTANEY RENDON was visited. Nursing and therapy notes read and reviewed. No new issues overnight. No chest pain, shortness of breath or abdominal pain. Current Medications: Active Medications Generic Name Dose Route Start Last Admin Trade Name Freq PRN Reason Stop Dose Admin Acetaminophen 650 mg 06/04/18 12:04 06/07/18 06:03 Tylenol Tab* PO 650 mg Q6H PRN Administration FEVER/PAIN Apixaban 5 mg 06/04/18 21:00 06/07/18 08:28 Eliquis* PO 5 mg BID JOSÉ Administration Atorvastatin Calcium 20 mg 06/05/18 17:00 06/06/18 18:06 Lipitor* PO 20 mg 1700 JOSÉ Administration Dextrose 12.5 gm 06/04/18 12:10 D50w Syringe 50 Ml* IV PUSH .FOR FS < 60 - SS PRN FS < 60 Diltiazem HCl 360 mg 06/05/18 09:00 06/07/18 08:28 Cardizem Cd Cap* PO 360 mg DAILY JOSÉ Administration Docusate Sodium 100 mg 06/04/18 21:00 06/07/18 08:28 Colace Cap* PO 100 mg BID JOSÉ Administration Insulin Human Lispro 0 - 10 units 06/04/18 12:30 06/07/18 08:24 Humalog* SUBCUT 2 units ACHS JOSÉ Administration Protocol Magnesium Hydroxide 30 ml 06/04/18 12:04 Milk Of Magnesia Liq* PO Q6H PRN CONSTIPATION Methocarbamol 750 mg 06/04/18 14:27 06/06/18 08:12 Robaxin Tab* PO 750 mg TID PRN Administration SPASMS Nitrofurantoin Macrocrystals 50 mg 06/05/18 22:00 06/07/18 10:01 Macrodantin* PO 06/10/18 23:59 50 mg Q6H JOSÉ Administration Oxycodone HCl 5 mg 06/04/18 14:10 06/06/18 12:12 Roxycodone Tab* PO 5 mg Q4H PRN Administration PAIN - SEVERE Senna 2 tab 06/04/18 12:04 Senokot Tab* PO BEDTIME PRN CONSTIPATION Torsemide 10 mg 06/05/18 09:00 06/07/18 08:27 Torsemide PO 10 mg DAILY JOSÉ Administration Tramadol HCl 50 mg 06/04/18 14:25 06/07/18 01:21 Ultram* PO 50 mg Q6H PRN Administration PAIN - MODERATE Vital Signs: Vital Signs Temp Pulse Resp BP Pulse Ox 98.1 F 91 16 142/55 96 06/07/18 06:05 06/07/18 06:05 06/07/18 06:05 06/07/18 06:05 06/07/18 06:05 Lab Results: Laboratory Results - last 24 hr 06/06/18 06/06/18 06/06/18 11:48 16:38 21:16 WBC RBC Hgb Hct MCV MCH MCHC RDW Plt Count MPV Neut % (Auto) Lymph % (Auto) [place] % (Auto) Eos % (Auto) Baso % (Auto) Absolute Neuts (auto) Absolute Lymphs (auto) Absolute Monos (auto) Absolute Eos (auto) Absolute Basos (auto) Absolute Nucleated RBC Nucleated RBC % POC Glucose (mg/dL) 140 H 174 H 196 H 06/07/18 06/07/18 05:07 07:30 WBC 7.2 RBC 3.01 L Hgb 8.7 L Hct 26 L MCV 85 MCH 29 MCHC 34 RDW 14 Plt Count 219 MPV 8.8 Neut % (Auto) 60.2 Lymph % (Auto) 25.8 [place] % (Auto) 11.2 Eos % (Auto) 2.2 Baso % (Auto) 0.6 Absolute Neuts (auto) 4.4 Absolute Lymphs (auto) 1.9 Absolute Monos (auto) 0.8 Absolute Eos (auto) 0.2 Absolute Basos (auto) 0 Absolute Nucleated RBC 0 Nucleated RBC % 0.1 POC Glucose (mg/dL) 164 H Exam: GENERAL: no acute distress. alert and appropriate LUNGS: clear to auscultation bilaterally HEART: irregularly irregular ABDOMEN: Soft, + bowel sounds, non-tender, non-distended EXTREMITIES: Right hip wound mild serous drainage proximally. 2+ pedal pulses. Decreased bilateral LE edema. No calf pain. Negative Homans. NEUROLOGIC: Motor 5/5 BUE/BLE except pain limited testing right hip and knee. Sensation intact x4. Assessment/Plan: 1. Right Hip Fracture: WBAT. PT/OT. Follow up with Dr. Sahu 2. Diabetes: SSI. Consistent carb diet. Nutrition consult and diabetes education 3. Atrial Fibrillation/hypertension: Cardizem/torsemide/Eliquis. I have reviewed records from [place] and [facility]. She had ECHO at [place] 08/05 and at [facility] 12/05. I explained to her that cardizem is for rate control of atrial fibrillation and in the past she did not react well to carvedilol. We will refer her to a elevator serviceman in [place] at discharge. She would like that. 4. Urinary Tract Infection with Ecoli sensitive to Macrodantin: Macrodantin day #3 5. 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 Advance Directives: Has MOLST. DNR 7. Hyponatremia: stable. f/u labs next week 8. Acute post-op anemia: CBC stable now 9. Hyperbilirubinemia: not symptomatic. f/u labs next week. 10. Advanced directives: DNR 11. Estimated LOS: 06/20/18 06/07/18 10:17
[2018-06-07] MEDS: oxyCODONE TAB* 5 MG TAB PO PRN ×2 (10:33→21:35)
[2018-06-07] MEDS: Atorvastatin* 20 MG TAB PO SCH (16:57)
[2018-06-08] MEDS: Nitrofurantoin Macrocrystals* 50 MG CAP PO SCH ×4 (04:35→21:48)
[2018-06-08] MEDS: traMADol TAB* 50 MG PO PRN (04:55)
[2018-06-08] MEDS: Methocarbamol TAB* 500 MG PO PRN (07:26)
[2018-06-08] MEDS: oxyCODONE TAB* 5 MG TAB PO PRN ×2 (07:27→21:48)
[2018-06-08] MEDS: Apixaban* 5 MG TAB PO SCH ×2 (08:52→21:48)
[2018-06-08] MEDS: Diltiazem CD CAP* 180 MG PO SCH (08:52)
[2018-06-08] MEDS: Docusate CAP* 100 MG PO SCH ×2 (08:52→21:47)
[2018-06-08] MEDS: Torsemide TAB 10 MG PO SCH (08:52)
[2018-06-08] MEDS: Insulin LISPRO* 1 UNITS UNIT SUBCUT SCH ×4 (09:11→21:49)
--- NOTE | 2018-06-08 09:58 | PN ---
Progress Note Date of Service: 06/08/18 Note: BRITTANEY RENDON was visited. Nursing and therapy notes read and reviewed. No chest pain, shortness of breath or abdominal pain. [place] a little "dizzy" after her insulin and pain meds but ok now. Current Medications: Active Medications Generic Name Dose Route Start Last Admin Trade Name Freq PRN Reason Stop Dose Admin Acetaminophen 650 mg 06/04/18 12:04 06/07/18 06:03 Tylenol Tab* PO 650 mg Q6H PRN Administration FEVER/PAIN Apixaban 5 mg 06/04/18 21:00 06/08/18 08:52 Eliquis* PO 5 mg BID JOSÉ Administration Atorvastatin Calcium 20 mg 06/05/18 17:00 06/07/18 16:57 Lipitor* PO 20 mg 1700 JOSÉ Administration Dextrose 12.5 gm 06/04/18 12:10 D50w Syringe 50 Ml* IV PUSH .FOR FS < 60 - SS PRN FS < 60 Diltiazem HCl 360 mg 06/05/18 09:00 06/08/18 08:52 Cardizem Cd Cap* PO 360 mg DAILY JOSÉ Administration Docusate Sodium 100 mg 06/04/18 21:00 06/08/18 08:52 Colace Cap* PO 100 mg BID JOSÉ Administration Insulin Human Lispro 0 - 10 units 06/04/18 12:30 06/08/18 09:11 Humalog* SUBCUT 2 units ACHS JOSÉ Administration Protocol Magnesium Hydroxide 30 ml 06/04/18 12:04 Milk Of Magnesia Liq* PO Q6H PRN CONSTIPATION Methocarbamol 750 mg 06/04/18 14:27 06/08/18 07:26 Robaxin Tab* PO 750 mg TID PRN Administration SPASMS Nitrofurantoin Macrocrystals 50 mg 06/05/18 22:00 06/08/18 09:12 Macrodantin* PO 06/10/18 23:59 50 mg Q6H JOSÉ Administration Oxycodone HCl 5 mg 06/04/18 14:10 06/08/18 07:27 Roxycodone Tab* PO 5 mg Q4H PRN Administration PAIN - SEVERE Senna 2 tab 06/04/18 12:04 Senokot Tab* PO BEDTIME PRN CONSTIPATION Torsemide 10 mg 06/05/18 09:00 06/08/18 08:52 Torsemide PO 10 mg DAILY JOSÉ Administration Tramadol HCl 50 mg 06/04/18 14:25 06/08/18 04:55 Ultram* PO 50 mg Q6H PRN Administration PAIN - MODERATE Vital Signs: Vital Signs Temp Pulse Resp BP Pulse Ox 98.6 F 96 18 138/56 97 06/08/18 04:55 06/08/18 04:55 06/08/18 07:28 06/08/18 04:55 06/08/18 04:55 Lab Results: Laboratory Results - last 24 hr 06/07/18 06/07/18 06/07/18 12:13 16:29 20:34 POC Glucose (mg/dL) 168 H 137 H 185 H 06/08/18 07:34 POC Glucose (mg/dL) 173 H Exam: GENERAL: no acute distress. alert and appropriate LUNGS: clear to auscultation bilaterally HEART: irregularly irregular ABDOMEN: Soft, + bowel sounds, non-tender, non-distended EXTREMITIES: 2+ pedal pulses. Decreased bilateral LE edema. No calf pain. Negative Homans. NEUROLOGIC: Motor 5/5 BUE/BLE except pain limited testing right hip and knee. Sensation intact x4. Assessment/Plan: 1. Right Hip Fracture: WBAT. PT/OT. Follow up with Dr. Sahu 2. Diabetes: SSI. Consistent carb diet. Nutrition consult and diabetes education 3. Atrial Fibrillation/hypertension: Cardizem/torsemide/Eliquis. I have reviewed records from [place] and [facility] She had ECHO at [place] 08/[address] [facility] [place]05. I explained to her that cardizem is for rate control of atrial fibrillation and in the past she did not react well to carvedilol. We will refer her to a ground wood supervisor in [place] at discharge. She would like that. 4. Urinary Tract Infection with Ecoli sensitive to Macrodantin: Macrodantin day #4/ 5. 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 Advance Directives: Has MOLST. DNR 7. Hyponatremia: stable. f/u labs next week 8. Acute post-op anemia: CBC stable now 9. Hyperbilirubinemia: not symptomatic. f/u labs next week. 10. Advanced directives: DNR 11. Estimated LOS: 06/20/18 06/08/18 09:57
[2018-06-08] MEDS: Acetaminophen TAB* 325 MG PO PRN (17:03)
[2018-06-08] MEDS: Atorvastatin* 20 MG TAB PO SCH (17:03)
[2018-06-09] MEDS: Nitrofurantoin Macrocrystals* 50 MG CAP PO SCH ×4 (03:56→21:06)
[2018-06-09 05:15] LABS: Albumin/Globulin Ratio 1.3 (1-3); BUN/Creatinine Ratio 25.9 (8-20); Calcium 8.3 mg/dL (8.6-10.3); EGFR African American 119.8 (>60); Globulin 2.4 g/dL (2-4); Potassium 3.6 mmol/L (3.5-5.0); Total Bilirubin 1.3 mg/dL (0.2-1.0); Total Protein 5.4 g/dL (6.4-8.9)
[2018-06-09] MEDS: Diltiazem CD CAP* 180 MG PO SCH (09:27)
[2018-06-09] MEDS: Docusate CAP* 100 MG PO SCH ×2 (09:27→21:06)
[2018-06-09] MEDS: traMADol TAB* 50 MG PO PRN ×2 (09:27→18:39)
[2018-06-09] MEDS: Torsemide TAB 10 MG PO SCH (09:27)
[2018-06-09] MEDS: Apixaban* 5 MG TAB PO SCH ×2 (09:27→21:06)
[2018-06-09] MEDS: Insulin LISPRO* 1 UNITS UNIT SUBCUT SCH ×4 (09:28→21:06)
[2018-06-09] MEDS: Acetaminophen TAB* 325 MG PO PRN (13:15)
[2018-06-09] MEDS: Atorvastatin* 20 MG TAB PO SCH (16:13)
--- NOTE | 2018-06-09 17:39 | PN ---
Progress Note Date of Service: 06/09/18 Note: BRITTANEY RENDON was visited. Therapy notes read and reviewed. She has minimal complaints of pain but is working hard. Her BS are mildly elevated in the 150s range. Current Medications: Active Medications Generic Name Dose Route Start Last Admin Trade Name Freq PRN Reason Stop Dose Admin Acetaminophen 650 mg 06/04/18 12:04 06/09/18 13:15 Tylenol Tab* PO 650 mg Q6H PRN Administration FEVER/PAIN Apixaban 5 mg 06/04/18 21:00 06/09/18 09:27 Eliquis* PO 5 mg BID JOSÉ Administration Atorvastatin Calcium 20 mg 06/05/18 17:00 06/09/18 16:13 Lipitor* PO 20 mg 1700 JOSÉ Administration Dextrose 12.5 gm 06/04/18 12:10 D50w Syringe 50 Ml* IV PUSH .FOR FS < 60 - SS PRN FS < 60 Diltiazem HCl 360 mg 06/05/18 09:00 06/09/18 09:27 Cardizem Cd Cap* PO 360 mg DAILY JOSÉ Administration Docusate Sodium 100 mg 06/04/18 21:00 06/09/18 09:27 Colace Cap* PO 100 mg BID JOSÉ Administration Insulin Human Lispro 0 - 10 units 06/04/18 12:30 06/09/18 17:27 Humalog* SUBCUT 2 units ACHS JOSÉ Administration Protocol Magnesium Hydroxide 30 ml 06/04/18 12:04 Milk Of Magnesia Liq* PO Q6H PRN CONSTIPATION Methocarbamol 750 mg 06/04/18 14:27 06/08/18 07:26 Robaxin Tab* PO 750 mg TID PRN Administration SPASMS Nitrofurantoin Macrocrystals 50 mg 06/05/18 22:00 06/09/18 16:13 Macrodantin* PO 06/10/18 23:59 50 mg Q6H JOSÉ Administration Oxycodone HCl 5 mg 06/04/18 14:10 06/08/18 21:48 Roxycodone Tab* PO 5 mg Q4H PRN Administration PAIN - SEVERE Senna 2 tab 06/04/18 12:04 Senokot Tab* PO BEDTIME PRN CONSTIPATION Torsemide 10 mg 06/05/18 09:00 06/09/18 09:27 Torsemide PO 10 mg DAILY JOSÉ Administration Tramadol HCl 50 mg 06/04/18 14:25 06/09/18 09:27 Ultram* PO 50 mg Q6H PRN Administration PAIN - MODERATE Vital Signs: Vital Signs Temp Pulse Resp BP Pulse Ox 98.9 F 99 16 139/54 99 06/09/18 07:09 06/09/18 07:09 06/09/18 11:27 06/09/18 07:09 06/09/18 07:09 Lab Results: Laboratory Results - last 24 hr 06/08/18 06/09/18 06/09/18 20:28 04:54 12:13 Sodium 131 L Potassium 3.6 Chloride 100 L Carbon Dioxide 23 Anion Gap 8 BUN 15 Creatinine 0.58 Est GFR ( Amer) 119.8 Est GFR (Non-Af Amer) 99.0 BUN/Creatinine Ratio 25.9 H Glucose 157 H POC Glucose (mg/dL) 152 H 118 H Calcium 8.3 L Total Bilirubin 1.30 H AST 17 ALT 17 Alkaline Phosphatase 109 H Total Protein 5.4 L Albumin 3.0 L Globulin 2.4 Albumin/Globulin Ratio 1.3 06/09/18 16:15 Sodium Potassium Chloride Carbon Dioxide Anion Gap BUN Creatinine Est GFR ( Amer) Est GFR (Non-Af Amer) BUN/Creatinine Ratio Glucose POC Glucose (mg/dL) 174 H Calcium Total Bilirubin AST ALT Alkaline Phosphatase Total Protein Albumin Globulin Albumin/Globulin Ratio Exam: GENERAL: no acute distress. alert and appropriate LUNGS: clear to auscultation bilaterally HEART: irregularly irregular ABDOMEN: Soft, + bowel sounds, non-tender, non-distended EXTREMITIES: 2+ pedal pulses. Decreased bilateral LE edema. No calf pain. Negative Homans. NEUROLOGIC: Motor 5/5 BUE/BLE except pain limited testing right hip and knee. Sensation intact x4. Assessment/Plan: 1. Right Hip Fracture: WBAT. PT/OT. Follow up with Dr. Sahu 2. Diabetes: SSI. Consistent carb diet. Nutrition consult and diabetes education 3. Atrial Fibrillation/hypertension: Cardizem/torsemide/Eliquis. Cardiology referral at d/c 4. Urinary Tract Infection with Ecoli sensitive to Macrodantin: Macrodantin day #5/ 5. 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 Advance Directives: Has MOLST. DNR 7. Hyponatremia: stable. f/u labs next week 8. Acute post-op anemia: CBC stable now 9. Hyperbilirubinemia: not symptomatic. f/u labs 10. Estimated LOS: 06/20/18 06/09/18 17:39
[2018-06-09] MEDS: oxyCODONE TAB* 5 MG TAB PO PRN (21:06)
[2018-06-10] MEDS: Acetaminophen TAB* 325 MG PO PRN ×2 (00:09→17:10)
[2018-06-10] MEDS: Nitrofurantoin Macrocrystals* 50 MG CAP PO SCH ×4 (04:12→20:52)
[2018-06-10] MEDS: Insulin LISPRO* 1 UNITS UNIT SUBCUT SCH ×4 (07:55→20:52)
[2018-06-10] MEDS: Diltiazem CD CAP* 180 MG PO SCH (08:20)
[2018-06-10] MEDS: Docusate CAP* 100 MG PO SCH ×2 (08:20→20:51)
[2018-06-10] MEDS: Apixaban* 5 MG TAB PO SCH ×2 (08:20→20:52)
[2018-06-10] MEDS: Torsemide TAB 10 MG PO SCH (08:20)
--- NOTE | 2018-06-10 12:53 | PMRUTEAM ---
PMRU: Team Meeting Current Status: Nursing: Current Status Skin Deviations [Right Upper Other Buttocks] Skin Deviations [Right Hip] Incision Skin Deviation Description [ dime sizes red saadia, skin intact Right Upper Buttocks] Skin Deviation Description [ 3 dressings Right Hip] Physical Therapy: Current Status Bed Mobility Assistance Not Tested Transfer Mobility Assistance Contact Guard Assist Transfer/Bed Mobility Rolling Walker Recommended Devices Ambulation Assistance Contact Guard Assist Ambulation Assistive Devices Rolling Walker Number of Feet Patient 20 Ambulated Stairs Assistance Not Tested Stairs Recommended Devices Two Rails Number of Stairs 6 Curb Not Tested Occupational Therapy: Current Status Upper Body Dressing Supervision Lower Body Dressing Min Assist Lower Body Dressing Progress use of AE for socks and to thread pullup/pants Bathing Mod Assist Bathing Progress assist for feet and rear hygiene in standing Toileting Mod Assist Toilet Transfer Min Assist Shower Transfer Min Assist Shower Transfer Progress swap out w/c to/from transfer bench at grab bar Eating Supervision Rec Therapy: Current Status Summary of Assessment and Pt. has been completing coloring designs and word Clinical Impression puzzles in her room. Pt. is open to conversation and continued visits. Treatment Goals Pt. will continue to engage in leisure while on the unit Treatment Plan Continue to provide recreation services Social Work: Current Status Discharge Plan return home with home care svs and family support Potential for Family Training pt's family live out of the area Anticipated Discharge Home Destination Discharge With home care svs and family support Nutrition: Current Status Monitoring Visited pt/discussed w/nursing/[employer]. Contacted " [employer]" program 06/09 which pt has been receiving. Alerted pt to request diabetic meal selections -she'll have her son request when he calls to resume meals. Glucose controlled well, pt eating well/meeting needs. Pt prefer script for meter in advance of d/c (if possible before grandsons visit 06/11) so family can obtain and she can practice while here. Stressed w/pt that reasonable target is needed considering age 83, lives alone. Goals: Physical Therapy: Initial Goals Bed Mobility Assistance Independent Transfer Mobility Assistance Independent Transfer/Bed Mobility Rolling Walker Recommended Devices Ambulation Independent Ambulation Recommended Devices Rolling Walker Ambulation Distance 150 Stairs Assistance Independent Stair Recommended Devices Two Rails Number of Stairs 5 Physical Therapy: Updated Goals Transfer/Bed Mobility Rolling Walker Recommended Devices Occupational Therapy: Initial Goals Goals to be Completed in (Days 10-14 ) Upper Body Bathing Routine Modified Independent with Lower Body Bathing Routine Modified Independent with Upper Body Dressing Routine Independent Lower Body Dressing Routine Modified Independent with Toilet Hygeine and Clothing Modified Independent with Management Routine Toilet Transfer Routine Modified Independent with Tub Transfer Routine Modified Independent with Functional Transfers for ADL Modified Independent with Grooming Routine Independent Feeding Routine Independent Light Housekeeping Tasks Modified Independent with Light Housekeeping Tasks Gregory for light meal prep Assistive Devices Nutrition: Goals Intervention Goals 1. Maintain adequate glycemic control per inpatient parameters w/o hypoglycemia and w/ consideration for advanced age. 2. Tolerates least restrictive texture w/o difficulty chewing. 3. Maintains adequate oral intake to support maintenance of lean body mass and rehab. 4. Pt expresses confidence re: home diabetes care plans prior to d/c. Social Work: Goals Discharge Plan return home with home care svs and family support Potential for Family Training pt's family live out of the area Anticipated Discharge Home Destination Discharge With home care svs and family support Care Plan: Care Plan ADL's - Improve/Maintain Start: 06/04/18 15:11 Freq: DAILY Status: Active Target: Protocol: Activity Type Activity Date Activity User E-Sign Co-Sign Detail Recorded Client Recorded Date Recorded By Document 06/09/18 16:05 [id number] 06/09/18 16:05 [id number] 06/09/18 16:05 PMRU Outcome: ADL's/ADL Transfers Orders/Interventions Occupational Therapy Evaluation & Treatment Communication Tool in Patient Room Device Yes Address Deficits Secondary To: right hip fx Patient to receive OT 5x/wk for 60-120 Therex min/day Self Care Management Group Therapy UE/LE ADL's with Assist Yes: Gregory ADL Transfers with Assist Yes: Gregory Toileting: Transfers,Clothing Management Yes: Gregory ,Hygeine w/Assist Light Kitchen/Laundry w/Assist Yes: Gregory for light meal prep Progression Toward Outcome/Goals Progressing Outcome/Goals Met Pt participated well in treatment session, making improvement in use of AE and transfers during ADL routine. Cardiovascular- Improve/Maintain Start: 06/04/18 12:12 Freq: QSHIFT Status: Active Target: Protocol: Activity Type Activity Date Activity User E-Sign Co-Sign Detail Recorded Client Recorded Date Recorded By Document 06/10/18 02:12 [id number] [id number] 06/10/18 02:12 [id number] 06/10/18 02:12 PMRU Outcome: Cardiovascular Vital Signs q Shift for 48hrs Then BID Yes Daily Weight Ordered No Current Cardiovascular Outcome/Goal Maintain/ Achieve Baseline HR, BP , Perfusion Maintain/ Achieve Hemodynamic Stability Free of Abnormal Cardiac Symptoms Progression Toward Outcome/Goal Progressing DVT Prophylaxis- Improve/Maintain Start: 06/04/18 12:12 Freq: QSHIFT Status: Active Target: Protocol: Activity Type Activity Date Activity User E-Sign Co-Sign Detail Recorded Client Recorded Date Recorded By Document 06/10/18 02:12 [id number] [id number] 06/10/18 02:12 [id number] 06/10/18 02:12 PMRU Outcome: DVT Prophylaxis Outcome/Goals Remains Free of DVT Complies with DVT Prophylaxis /Treatment Demonstrates Knowledge of DVT Prevention/ Treatment TEDS Stockings on Every AM, Off at HS Progression Toward Outcome/Goals Progressing Discharge Planning - Improve/Maintain Start: 06/04/18 12:12 Freq: DAILY Status: Active Target: Protocol: Activity Type Activity Date Activity User E-Sign Co-Sign Detail Recorded Client Recorded Date Recorded By Document 06/10/18 02:10 [id number] [id number] 06/10/18 02:11 [id number] 06/10/18 02:10 PMRU Outcome: Discharge Planning Update Patient Family No Outcome/Goals Demonstrates Understanding of Discharge Plan Progression Toward Outcome/Goals Progressing Education-Improve/Maintain Start: 06/04/18 12:12 Freq: QSHIFT Status: Active Target: Protocol: Activity Type Activity Date Activity User E-Sign Co-Sign Detail Recorded Client Recorded Date Recorded By Document 06/10/18 02:12 [id number] 06/10/18 02:12 [id number] 06/10/18 02:12 PMRU Outcome: Education Outcome/Goals Demonstrates Skills Encourage Questions Progression Toward Outcome/Goals Progressing Medication Administration Start: 06/04/18 12:12 Freq: QSHIFT Status: Active Target: Protocol: Activity Type Activity Date Activity User E-Sign Co-Sign Detail Recorded Client Recorded Date Recorded By Document 06/10/18 02:12 [id number] 06/10/18 02:12 [id number] 06/10/18 02:12 PMRU Outcome: Medication Administration Assess Patient Knowledge/Teach Med Yes Education for all Meds Outcome/Goals Patient Independent with Medication Administration at Home Progression Towards Outcome/Goals Progressing Is Patient Going Home on Lovenox? No Pain/Comfort- Improve/Maintain Start: 06/04/18 12:12 Freq: QSHIFT Status: Active Target: Protocol: Activity Type Activity Date Activity User E-Sign Co-Sign Detail Recorded Client Recorded Date Recorded By Document 06/10/18 02:12 [id number] 06/10/18 02:12 [id number] 06/10/18 02:12 PMRU Outcome: Pain/Comfort Outcome/Goals Demonstrates Knowledge and Use of Available Comfort Measures Achieves Acceptable Comfort/Pain Level as Determined by Patient/Condit Maintain Comfort Level Allowing Patient to Fully Participate in Rehab Progression Toward Outcome/Goals Progressing Outcome/Goals Met Comment pain medication given Safety- Improve/Maintain Start: 06/04/18 12:12 Freq: QSHIFT Status: Active Target: Protocol: Activity Type Activity Date Activity User E-Sign Co-Sign Detail Recorded Client Recorded Date Recorded By Document 06/10/18 02:12 [id number] [email or web address] 06/10/18 02:12 [id number] 06/10/18 02:12 PMRU Outcome: Safety Outcome/Goals Remain Free of Injury or Harm Prevent Falls/ Injury Progression Toward Outcome/Goals Progressing Outcome/Goals Met Comment BA armed Skin- Improve/Maintain Start: 06/04/18 12:12 Freq: QSHIFT Status: Active Target: Protocol: Activity Type Activity Date Activity User E-Sign Co-Sign Detail Recorded Client Recorded Date Recorded By Document 06/10/18 02:12 [id number] [id number] 06/10/18 02:12 [id number] 06/10/18 02:12 PMRU Outcome: Skin Skin Risk Level Medium Skin Orders Dressing Change Turn/Position q2hr While in Bed Outcome/Goals Free from Decubitus Surgical Incisions Healing Progression Toward Outcome/Goals Progressing Medicine Note: Length of Stay: 10 days Anticipated Discharge Destination: Home Tentative Discharge Date: 06/20/18 Discharged to: Home
[2018-06-10] MEDS: Atorvastatin* 20 MG TAB PO SCH (17:10)
--- NOTE | 2018-06-10 19:11 | PN ---
Progress Note Date of Service: 06/10/18 Note: BRITTANEY RENDON was visited. Therapy notes read and reviewed. She was discussed in interdisciplinary team rounds. She has made good gains and is working hard. Finishing up treatment for UTI Current Medications: Active Medications Generic Name Dose Route Start Last Admin Trade Name Freq PRN Reason Stop Dose Admin Acetaminophen 650 mg 06/04/18 12:04 06/10/18 17:10 Tylenol Tab* PO 650 mg Q6H PRN Administration FEVER/PAIN Apixaban 5 mg 06/04/18 21:00 06/10/18 08:20 Eliquis* PO 5 mg BID JOSÉ Administration Atorvastatin Calcium 20 mg 06/05/18 17:00 06/10/18 17:10 Lipitor* PO 20 mg 1700 JOSÉ Administration Dextrose 12.5 gm 06/04/18 12:10 D50w Syringe 50 Ml* IV PUSH .FOR FS < 60 - SS PRN FS < 60 Diltiazem HCl 360 mg 06/05/18 09:00 06/10/18 08:20 Cardizem Cd Cap* PO 360 mg DAILY JOSÉ Administration Docusate Sodium 100 mg 06/04/18 21:00 06/10/18 08:20 Colace Cap* PO 100 mg BID JOSÉ Administration Insulin Human Lispro 0 - 10 units 06/04/18 12:30 06/10/18 17:07 Humalog* SUBCUT Not Given ACHS [facility] Protocol Magnesium Hydroxide 30 ml 06/04/18 12:04 Milk Of Magnesia Liq* PO Q6H PRN CONSTIPATION Methocarbamol 750 mg 06/04/18 14:27 06/08/18 07:26 Robaxin Tab* PO 750 mg TID PRN Administration SPASMS Nitrofurantoin Macrocrystals 50 mg 06/05/18 22:00 06/10/18 17:10 Macrodantin* PO 06/10/18 23:59 50 mg Q6H JOSÉ Administration Oxycodone HCl 5 mg 06/04/18 14:10 06/09/18 21:06 Roxycodone Tab* PO 5 mg Q4H PRN Administration PAIN - SEVERE Senna 2 tab 06/04/18 12:04 Senokot Tab* PO BEDTIME PRN CONSTIPATION Torsemide 10 mg 06/05/18 09:00 06/10/18 08:20 Torsemide PO 10 mg DAILY JOSÉ Administration Tramadol HCl 50 mg 06/04/18 14:25 06/09/18 18:39 Ultram* PO 50 mg Q6H PRN Administration PAIN - MODERATE Vital Signs: Vital Signs Temp Pulse Resp BP Pulse Ox 98.1 F 92 18 130/57 94 06/10/18 16:06 06/10/18 16:06 06/10/18 16:06 06/10/18 16:06 06/10/18 16:06 Lab Results: Laboratory Results - last 24 hr 06/09/18 06/10/18 06/10/18 20:24 07:43 11:54 POC Glucose (mg/dL) 154 H 81 130 H 06/10/18 16:52 POC Glucose (mg/dL) 103 H Exam: GENERAL: no acute distress. alert and appropriate LUNGS: clear to auscultation bilaterally HEART: irregularly irregular ABDOMEN: Soft, + bowel sounds, non-tender, non-distended EXTREMITIES: 2+ pedal pulses. Decreased bilateral LE edema. No calf pain. Negative Homans. NEUROLOGIC: Motor 5/5 BUE/BLE except pain limited testing right hip and knee. Sensation intact x4. Assessment/Plan: 1. Right Hip Fracture: WBAT. PT/OT. Follow up with Dr. Sahu 2. Diabetes: SSI. Consistent carb diet. Nutrition consult and diabetes education. Will get her BG monitor 3. Atrial Fibrillation/hypertension: Cardizem/torsemide/Eliquis. Cardiology referral at d/c 4. Urinary Tract Infection with Ecoli sensitive to Macrodantin: Macrodantin day #6/7 5. 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 Advance Directives: Has MOLST. DNR 7. Hyponatremia: stable. f/u labs next week 8. Acute post-op anemia: CBC stable now 9. Hyperbilirubinemia: not symptomatic. f/u labs 10. Estimated LOS: 06/20/18 06/10/18 19:12
[2018-06-10] MEDS: oxyCODONE TAB* 5 MG TAB PO PRN (20:51)
[2018-06-11] MEDS: Insulin LISPRO* 1 UNITS UNIT SUBCUT SCH ×4 (08:48→21:40)
[2018-06-11] MEDS: Apixaban* 5 MG TAB PO SCH ×2 (08:48→20:09)
[2018-06-11] MEDS: Docusate CAP* 100 MG PO SCH ×2 (08:49→20:09)
[2018-06-11] MEDS: Torsemide TAB 10 MG PO SCH (08:49)
[2018-06-11] MEDS: Diltiazem CD CAP* 180 MG PO SCH (08:49)
[2018-06-11] MEDS: oxyCODONE TAB* 5 MG TAB PO PRN (08:57)
[2018-06-11] MEDS: Atorvastatin* 20 MG TAB PO SCH (17:13)
[2018-06-11] MEDS: Acetaminophen TAB* 325 MG PO PRN (20:09)
--- NOTE | 2018-06-11 21:55 | PN ---
Progress Note Date of Service: 06/11/18 Note: BRITTANEY RENDON was visited. Therapy notes read and reviewed. She seems to be moving a little better but is complaining of pain. Current Medications: Active Medications Generic Name Dose Route Start Last Admin Trade Name Freq PRN Reason Stop Dose Admin Acetaminophen 650 mg 06/04/18 12:04 06/11/18 20:09 Tylenol Tab* PO 650 mg Q6H PRN Administration FEVER/PAIN Apixaban 5 mg 06/04/18 21:00 06/11/18 20:09 Eliquis* PO 5 mg BID JOSÉ Administration Atorvastatin Calcium 20 mg 06/05/18 17:00 06/11/18 17:13 Lipitor* PO 20 mg 1700 JOSÉ Administration Dextrose 12.5 gm 06/04/18 12:10 D50w Syringe 50 Ml* IV PUSH .FOR FS < 60 - SS PRN FS < 60 Diltiazem HCl 360 mg 06/05/18 09:00 06/11/18 08:49 Cardizem Cd Cap* PO 360 mg DAILY JOSÉ Administration Docusate Sodium 100 mg 06/04/18 21:00 06/11/18 20:09 Colace Cap* PO 100 mg BID JOSÉ Administration Insulin Human Lispro 0 - 10 units 06/04/18 12:30 06/11/18 21:40 Humalog* SUBCUT 2 units ACHS JOSÉ Administration Protocol Magnesium Hydroxide 30 ml 06/04/18 12:04 Milk Of Magnesia Liq* PO Q6H PRN CONSTIPATION Methocarbamol 750 mg 06/04/18 14:27 06/08/18 07:26 Robaxin Tab* PO 750 mg TID PRN Administration SPASMS Oxycodone HCl 5 mg 06/04/18 14:10 06/11/18 08:57 Roxycodone Tab* PO 5 mg Q4H PRN Administration PAIN - SEVERE Senna 2 tab 06/04/18 12:04 Senokot Tab* PO BEDTIME PRN CONSTIPATION Torsemide 10 mg 06/05/18 09:00 06/11/18 08:49 Torsemide PO 10 mg DAILY JOSÉ Administration Tramadol HCl 50 mg 06/04/18 14:25 06/09/18 18:39 Ultram* PO 50 mg Q6H PRN Administration PAIN - MODERATE Vital Signs: Vital Signs Temp Pulse Resp BP Pulse Ox 98.0 F 88 16 133/59 100 06/11/18 15:52 06/11/18 15:52 06/11/18 20:00 06/11/18 15:52 06/11/18 20:00 Lab Results: Laboratory Results - last 24 hr 06/11/18 06/11/18 06/11/18 07:43 11:52 16:20 POC Glucose (mg/dL) 140 H 117 H 147 H 06/11/18 20:16 POC Glucose (mg/dL) 194 H Exam: GENERAL: no acute distress. alert and appropriate LUNGS: clear to auscultation bilaterally HEART: irregularly irregular ABDOMEN: Soft, + bowel sounds, non-tender, non-distended EXTREMITIES: 2+ pedal pulses. Decreased bilateral LE edema. No calf pain. Negative Homans. NEUROLOGIC: Motor 5/5 BUE/BLE except pain limited testing right hip and knee. Sensation intact x4. Assessment/Plan: 1. Right Hip Fracture: WBAT. PT/OT. Follow up with Dr. Sahu 2. Diabetes: SSI. Consistent carb diet. Nutrition consult and diabetes education. Will get her BG monitor 3. Atrial Fibrillation/hypertension: Cardizem/torsemide/Eliquis. Cardiology referral at d/c 4. Urinary Tract Infection: Macrodantin finished 5. 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 Advance Directives: Has MOLST. DNR 7. Hyponatremia: stable. f/u labs next week 8. Acute post-op anemia: follow CBC 9. Hyperbilirubinemia: not symptomatic. f/u labs 10. Estimated LOS: 06/20/18 06/11/18 21:56 06/11/18 21:58
[2018-06-12] MEDS: Insulin LISPRO* 1 UNITS UNIT SUBCUT SCH ×4 (08:46→21:15)
[2018-06-12] MEDS: Docusate CAP* 100 MG PO SCH ×2 (08:48→21:16)
[2018-06-12] MEDS: Apixaban* 5 MG TAB PO SCH ×2 (08:48→21:16)
[2018-06-12] MEDS: Diltiazem CD CAP* 180 MG PO SCH (08:48)
[2018-06-12] MEDS: Torsemide TAB 10 MG PO SCH (08:48)
[2018-06-12] MEDS: traMADol TAB* 50 MG PO PRN (09:08)
[2018-06-12] MEDS: Atorvastatin* 20 MG TAB PO SCH (17:45)
--- NOTE | 2018-06-12 20:48 | PN ---
Progress Note Date of Service: 06/12/18 Note: BRITTANEY RENDON was visited. Therapy notes read and reviewed. She has some complaints of right ankle pain but is moving fairly well and breathing ok. Current Medications: Active Medications Generic Name Dose Route Start Last Admin Trade Name Freq PRN Reason Stop Dose Admin Acetaminophen 650 mg 06/04/18 12:04 06/11/18 20:09 Tylenol Tab* PO 650 mg Q6H PRN Administration FEVER/PAIN Apixaban 5 mg 06/04/18 21:00 06/12/18 08:48 Eliquis* PO 5 mg BID JOSÉ Administration Atorvastatin Calcium 20 mg 06/05/18 17:00 06/12/18 17:45 Lipitor* PO 20 mg 1700 JOSÉ Administration Dextrose 12.5 gm 06/04/18 12:10 D50w Syringe 50 Ml* IV PUSH .FOR FS < 60 - SS PRN FS < 60 Diltiazem HCl 360 mg 06/05/18 09:00 06/12/18 08:48 Cardizem Cd Cap* PO 360 mg DAILY JOSÉ Administration Docusate Sodium 100 mg 06/04/18 21:00 06/12/18 08:48 Colace Cap* PO 100 mg BID JOSÉ Administration Insulin Human Lispro 0 - 10 units 06/04/18 12:30 06/12/18 17:43 Humalog* SUBCUT 2 units ACHS JOSÉ Administration Protocol Magnesium Hydroxide 30 ml 06/04/18 12:04 Milk Of Magnesia Liq* PO Q6H PRN CONSTIPATION Methocarbamol 750 mg 06/04/18 14:27 06/08/18 07:26 Robaxin Tab* PO 750 mg TID PRN Administration SPASMS Oxycodone HCl 5 mg 06/04/18 14:10 06/11/18 08:57 Roxycodone Tab* PO 5 mg Q4H PRN Administration PAIN - SEVERE Senna 2 tab 06/04/18 12:04 Senokot Tab* PO BEDTIME PRN CONSTIPATION Torsemide 10 mg 06/05/18 09:00 06/12/18 08:48 Torsemide PO 10 mg DAILY JOSÉ Administration Tramadol HCl 50 mg 06/04/18 14:25 06/12/18 09:08 Ultram* PO 50 mg Q6H PRN Administration PAIN - MODERATE Vital Signs: Vital Signs Temp Pulse Resp BP Pulse Ox 98.8 F 75 20 133/47 100 06/12/18 14:46 06/12/18 14:46 06/12/18 14:46 06/12/18 14:46 06/12/18 14:46 Lab Results: Laboratory Results - last 24 hr 06/12/18 06/12/18 07:23 11:44 POC Glucose (mg/dL) 151 H 128 H Exam: GENERAL: no acute distress. alert and appropriate LUNGS: clear to auscultation bilaterally HEART: irregularly irregular ABDOMEN: Soft, + bowel sounds, non-tender, non-distended EXTREMITIES: 2+ pedal pulses. Decreased bilateral LE edema. No calf pain. Negative Homans. NEUROLOGIC: Motor 5/5 BUE/BLE except pain limited testing right hip and knee. Sensation intact x4. Assessment/Plan: 1. Right Hip Fracture: WBAT. PT/OT. Follow up with Dr. Sahu 2. Diabetes: SSI. Consistent carb diet. Nutrition consult and diabetes education. Will get her BG monitor 3. Atrial Fibrillation/hypertension: Cardizem/torsemide/Eliquis. Cardiology referral at d/c 4. Urinary Tract Infection: Macrodantin finished 5. 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 Advance Directives: Has MOLST. DNR 7. Hyponatremia: stable. f/u labs next week 8. Acute post-op anemia: follow CBC 9. Hyperbilirubinemia: not symptomatic. f/u labs 10. Estimated LOS: 06/20/18 06/12/18 20:48
[2018-06-13] MEDS: traMADol TAB* 50 MG PO PRN ×3 (00:15→21:00)
[2018-06-13 05:39] LABS: ABS Basophils 0 10^3/ul (0-0.2); ABS Eosinophils 0.2 10^3/ul (0-0.6); ABS Monocytes 0.8 10^3/ul (0-0.8); ABS Neutrophils 6.3 10^3/ul (1.5-7.7); ABS Nucleated RBC 0 10^3/ul; Eosinophil % 2.1 %; Hematocrit 26 % (33-41); Hemoglobin 9.2 g/dL (12.0-16.0); Lymphocyte % 21.4 %; Mean Corpuscular HGB Conc 35 g/dL (31-36); Mean Corpuscular Hemoglobin 30 pg (27-31); Mean Corpuscular Volume 86 fL (80-97); Mean Platelet Volume 8.1 fL (7.4-10.4); Nucleated Red Blood Cells % 0; Platelet Count 340 10^3/uL (150-450); Red Blood Count 3.06 10^6 /uL (3.70-4.87); Red Cell Distribution Width 15 % (10.5-15); White Blood Count 9.3 10^3/uL (3.5-10.8)
[2018-06-13 05:55] LABS: Albumin 3.2 g/dL (3.2-5.2); Albumin/Globulin Ratio 1.3 (1-3); BUN/Creatinine Ratio 24.2 (8-20); Calcium 8.4 mg/dL (8.6-10.3); EGFR Non-African American 91.7 (>60); Globulin 2.4 g/dL (2-4); Potassium 4.2 mmol/L (3.5-5.0); Total Bilirubin 0.9 mg/dL (0.2-1.0); Total Protein 5.6 g/dL (6.4-8.9)
[2018-06-13] MEDS: Docusate CAP* 100 MG PO SCH ×2 (08:25→21:00)
[2018-06-13] MEDS: Apixaban* 5 MG TAB PO SCH ×2 (08:26→21:00)
[2018-06-13] MEDS: Diltiazem CD CAP* 180 MG PO SCH (08:27)
[2018-06-13] MEDS: Torsemide TAB 10 MG PO SCH (08:27)
[2018-06-13] MEDS: Insulin LISPRO* 1 UNITS UNIT SUBCUT SCH ×4 (08:28→21:20)
--- NOTE | 2018-06-13 10:19 | PN ---
Progress Note Date of Service: 06/13/18 Note: BRITTANEY RENDON was visited. Nursing and therapy notes read and reviewed. No chest pain, shortness of breath or abdominal pain. No new concerns. Current Medications: Active Medications Generic Name Dose Route Start Last Admin Trade Name Freq PRN Reason Stop Dose Admin Acetaminophen 650 mg 06/04/18 12:04 06/11/18 20:09 Tylenol Tab* PO 650 mg Q6H PRN Administration FEVER/PAIN Apixaban 5 mg 06/04/18 21:00 06/13/18 08:26 Eliquis* PO 5 mg BID JOSÉ Administration Atorvastatin Calcium 20 mg 06/05/18 17:00 06/12/18 17:45 Lipitor* PO 20 mg 1700 JOSÉ Administration Dextrose 12.5 gm 06/04/18 12:10 D50w Syringe 50 Ml* IV PUSH .FOR FS < 60 - SS PRN FS < 60 Diltiazem HCl 360 mg 06/05/18 09:00 06/13/18 08:27 Cardizem Cd Cap* PO 360 mg DAILY JOSÉ Administration Docusate Sodium 100 mg 06/04/18 21:00 06/13/18 08:25 Colace Cap* PO 100 mg BID JOSÉ Administration Insulin Human Lispro 0 - 10 units 06/04/18 12:30 06/13/18 08:28 Humalog* SUBCUT 2 units ACHS JOSÉ Administration Protocol Magnesium Hydroxide 30 ml 06/04/18 12:04 Milk Of Magnesia Liq* PO Q6H PRN CONSTIPATION Methocarbamol 750 mg 06/04/18 14:27 06/08/18 07:26 Robaxin Tab* PO 750 mg TID PRN Administration SPASMS Oxycodone HCl 5 mg 06/04/18 14:10 06/11/18 08:57 Roxycodone Tab* PO 5 mg Q4H PRN Administration PAIN - SEVERE Senna 2 tab 06/04/18 12:04 Senokot Tab* PO BEDTIME PRN CONSTIPATION Torsemide 10 mg 06/05/18 09:00 06/13/18 08:27 Torsemide PO 10 mg DAILY JOSÉ Administration Tramadol HCl 50 mg 06/04/18 14:25 06/13/18 08:29 Ultram* PO 50 mg Q6H PRN Administration PAIN - MODERATE Vital Signs: Vital Signs Temp Pulse Resp BP Pulse Ox 97.8 F 69 18 129/46 100 04/26/19 06:10 06/13/18 06:10 06/13/18 08:29 06/13/18 06:10 06/13/18 08:00 Lab Results: Laboratory Results - last 24 hr 06/12/18 06/12/18 06/12/18 07:23 11:44 16:48 WBC RBC Hgb Hct MCV MCH MCHC RDW Plt Count MPV Neut % (Auto) Lymph % (Auto) [place] % (Auto) Eos % (Auto) Baso % (Auto) Absolute Neuts (auto) Absolute Lymphs (auto) Absolute Monos (auto) Absolute Eos (auto) Absolute Basos (auto) Absolute Nucleated RBC Nucleated RBC % Sodium Potassium Chloride Carbon Dioxide Anion Gap BUN Creatinine Est GFR ( Amer) Est GFR (Non-Af Amer) BUN/Creatinine Ratio Glucose POC Glucose (mg/dL) 151 H 128 H 150 H Calcium Total Bilirubin AST ALT Alkaline Phosphatase Total Protein Albumin Globulin Albumin/Globulin Ratio 06/12/18 06/13/18 06/13/18 20:50 05:24 05:24 WBC 9.3 RBC 3.06 L Hgb 9.2 L Hct 26 L MCV 86 MCH 30 MCHC 35 RDW 15 Plt Count 340 MPV 8.1 Neut % (Auto) 67.4 Lymph % (Auto) 21.4 [place] % (Auto) 8.6 Eos % (Auto) 2.1 Baso % (Auto) 0.5 Absolute Neuts (auto) 6.3 Absolute Lymphs (auto) 2.0 Absolute Monos (auto) 0.8 Absolute Eos (auto) 0.2 Absolute Basos (auto) 0 Absolute Nucleated RBC 0 Nucleated RBC % 0 Sodium 130 L Potassium 4.2 Chloride 102 Carbon Dioxide 23 Anion Gap 5 BUN 15 Creatinine 0.62 Est GFR ( Amer) 111.0 Est GFR (Non-Af Amer) 91.7 BUN/Creatinine Ratio 24.2 H Glucose 140 H POC Glucose (mg/dL) 165 H Calcium 8.4 L Total Bilirubin 0.90 AST 13 ALT 15 Alkaline Phosphatase 149 H Total Protein 5.6 L Albumin 3.2 Globulin 2.4 Albumin/Globulin Ratio 1.3 06/13/18 07:50 WBC RBC Hgb Hct MCV MCH MCHC RDW Plt Count MPV Neut % (Auto) Lymph % (Auto) [place] % (Auto) Eos % (Auto) Baso % (Auto) Absolute Neuts (auto) Absolute Lymphs (auto) Absolute Monos (auto) Absolute Eos (auto) Absolute Basos (auto) Absolute Nucleated RBC Nucleated RBC % Sodium Potassium Chloride Carbon Dioxide Anion Gap BUN Creatinine Est GFR ( Amer) Est GFR (Non-Af Amer) BUN/Creatinine Ratio Glucose POC Glucose (mg/dL) 185 H Calcium Total Bilirubin AST ALT Alkaline Phosphatase Total Protein Albumin Globulin Albumin/Globulin Ratio Exam: GENERAL: no acute distress. alert and appropriate LUNGS: clear to auscultation bilaterally HEART: irregularly irregular ABDOMEN: Soft, + bowel sounds, non-tender, non-distended EXTREMITIES: 2+ pedal pulses. Decreased bilateral LE edema. No calf pain. NEUROLOGIC: Motor 5/5 BLE except pain limited testing right hip and knee. Sensation intact x4. SKIN: marlee c/d/i Assessment/Plan: 1. Right Hip Fracture: WBAT. PT/OT. Follow up with Dr. Sahu 2. Diabetes: SSI. Consistent carb diet. Nutrition consult and diabetes education. Will get her BG monitor 3. Atrial Fibrillation/hypertension: Cardizem/torsemide/Eliquis. Cardiology referral at d/c 4. Urinary Tract Infection: Macrodantin finished 5. 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 Advance Directives: Has MOLST. DNR 7. Hyponatremia: stable. f/u routine labs 8. Acute post-op anemia: stable. f/u routine labs 9. Hyperbilirubinemia: not symptomatic. resolved. 10. Estimated LOS: 06/20/18 06/13/18 10:19
[2018-06-13] MEDS: Atorvastatin* 20 MG TAB PO SCH (17:22)
[2018-06-14] MEDS: Docusate CAP* 100 MG PO SCH ×2 (09:19→20:14)
[2018-06-14] MEDS: Diltiazem CD CAP* 180 MG PO SCH (09:19)
[2018-06-14] MEDS: Torsemide TAB 10 MG PO SCH (09:20)
[2018-06-14] MEDS: Insulin LISPRO* 1 UNITS UNIT SUBCUT SCH ×4 (09:20→21:13)
[2018-06-14] MEDS: Apixaban* 5 MG TAB PO SCH ×2 (09:20→20:14)
--- NOTE | 2018-06-14 11:20 | PN ---
Progress Note Date of Service: 06/14/18 Note: BRITTANEY RENDON was visited. Nursing and therapy notes read and reviewed. Has green sputum and nasal discharge she thinks is from dryness. Uses saline NS at home. No chest pain, shortness of breath or abdominal pain. Current Medications: Active Medications Generic Name Dose Route Start Last Admin Trade Name Freq PRN Reason Stop Dose Admin Acetaminophen 650 mg 06/04/18 12:04 06/11/18 20:09 Tylenol Tab* PO 650 mg Q6H PRN Administration FEVER/PAIN Apixaban 5 mg 06/04/18 21:00 06/14/18 09:20 Eliquis* PO 5 mg BID JOSÉ Administration Atorvastatin Calcium 20 mg 06/05/18 17:00 06/13/18 17:22 Lipitor* PO 20 mg 1700 JOSÉ Administration Dextrose 12.5 gm 06/04/18 12:10 D50w Syringe 50 Ml* IV PUSH .FOR FS < 60 - SS PRN FS < 60 Diltiazem HCl 360 mg 06/05/18 09:00 06/14/18 09:19 Cardizem Cd Cap* PO 360 mg DAILY JOSÉ Administration Docusate Sodium 100 mg 06/04/18 21:00 06/14/18 09:19 Colace Cap* PO 100 mg BID JOSÉ Administration Insulin Human Lispro 0 - 10 units 06/04/18 12:30 06/14/18 09:20 Humalog* SUBCUT 1 units ACHS JOSÉ Administration Protocol Magnesium Hydroxide 30 ml 06/04/18 12:04 Milk Of Magnesia Liq* PO Q6H PRN CONSTIPATION Methocarbamol 750 mg 06/04/18 14:27 06/08/18 07:26 Robaxin Tab* PO 750 mg TID PRN Administration SPASMS Oxycodone HCl 5 mg 06/04/18 14:10 06/11/18 08:57 Roxycodone Tab* PO 5 mg Q4H PRN Administration PAIN - SEVERE Senna 2 tab 06/04/18 12:04 Senokot Tab* PO BEDTIME PRN CONSTIPATION Torsemide 10 mg 06/05/18 09:00 06/14/18 09:20 Torsemide PO 10 mg DAILY JOSÉ Administration Tramadol HCl 50 mg 06/04/18 14:25 06/13/18 21:00 Ultram* PO 50 mg Q6H PRN Administration PAIN - MODERATE Vital Signs: Vital Signs Temp Pulse Resp BP Pulse Ox 98.1 F 81 16 129/44 98 06/14/18 10:02 06/14/18 04:13 06/14/18 04:13 06/14/18 04:13 06/14/18 07:50 Lab Results: Laboratory Results - last 24 hr 06/13/18 06/13/18 06/13/18 12:09 16:31 20:43 POC Glucose (mg/dL) 113 H 139 H 151 H 06/14/18 07:48 POC Glucose (mg/dL) 133 H Exam: GENERAL: no acute distress. alert and appropriate LUNGS: clear to auscultation bilaterally HEART: irregularly irregular ABDOMEN: Soft, + bowel sounds, non-tender, non-distended EXTREMITIES: 2+ pedal pulses. Decreased bilateral LE edema. No calf pain. NEUROLOGIC: Motor 5/5 BLE except pain limited testing right hip and knee. Sensation intact x4. SKIN: marlee c/d/i Assessment/Plan: 1. Right Hip Fracture: WBAT. PT/OT. Follow up with Dr. Sahu 2. Diabetes: SSI. Consistent carb diet. Nutrition consult and diabetes education. Will get her BG monitor 3. Atrial Fibrillation/hypertension: Cardizem/torsemide/Eliquis. Cardiology referral at d/c 4. Urinary Tract Infection: Macrodantin finished 5. 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 Advance Directives: Has MOLST. DNR 7. Hyponatremia: stable. f/u routine labs 8. Acute post-op anemia: stable. f/u routine labs 9. Hyperbilirubinemia: not symptomatic. resolved. 10. Estimated LOS: 06/20/18 11. Congestion: normal saline nasal spray. 06/14/18 11:19
[2018-06-14] MEDS: Saline NASAL SPRAY 0.65%* BTL BOTH NARES SCH ×2 (15:32→21:15)
[2018-06-14] MEDS: Atorvastatin* 20 MG TAB PO SCH (18:23)
[2018-06-14] MEDS: traMADol TAB* 50 MG PO PRN (19:15)
[2018-06-15] MEDS: traMADol TAB* 50 MG PO PRN ×2 (03:46→21:17)
[2018-06-15] MEDS: Diltiazem CD CAP* 180 MG PO SCH (09:16)
[2018-06-15] MEDS: Torsemide TAB 10 MG PO SCH (09:16)
[2018-06-15] MEDS: Apixaban* 5 MG TAB PO SCH ×2 (09:16→21:17)
[2018-06-15] MEDS: Insulin LISPRO* 1 UNITS UNIT SUBCUT SCH ×4 (09:17→21:20)
[2018-06-15] MEDS: Docusate CAP* 100 MG PO SCH ×2 (09:18→21:18)
[2018-06-15] MEDS: Saline NASAL SPRAY 0.65%* BTL BOTH NARES SCH ×3 (09:19→21:19)
[2018-06-15] MEDS ORDERED: Benzocaine/Menthol LOZ* 1 LOZENGE PO PRN (10:10)
--- NOTE | 2018-06-15 10:10 | PN ---
Progress Note Date of Service: 06/15/18 Note: BRITTANEY RENDON was visited. Nursing notes read and reviewed. No chest pain, shortness of breath or abdominal pain. Would like losenges for night with dry air. Congestion is less today with NS nasal spray. Current Medications: Active Medications Generic Name Dose Route Start Last Admin Trade Name Freq PRN Reason Stop Dose Admin Acetaminophen 650 mg 06/04/18 12:04 06/11/18 20:09 Tylenol Tab* PO 650 mg Q6H PRN Administration FEVER/PAIN Apixaban 5 mg 06/04/18 21:00 06/15/18 09:16 Eliquis* PO 5 mg BID JOSÉ Administration Atorvastatin Calcium 20 mg 06/05/18 17:00 06/14/18 18:23 Lipitor* PO 20 mg 1700 JOSÉ Administration Dextrose 12.5 gm 06/04/18 12:10 D50w Syringe 50 Ml* IV PUSH .FOR FS < 60 - SS PRN FS < 60 Diltiazem HCl 360 mg 06/05/18 09:00 06/15/18 09:16 Cardizem Cd Cap* PO 360 mg DAILY JOSÉ Administration Docusate Sodium 100 mg 06/04/18 21:00 06/15/18 09:18 Colace Cap* PO 100 mg BID JOSÉ Administration Insulin Human Lispro 0 - 10 units 06/04/18 12:30 06/15/18 09:17 Humalog* SUBCUT 1 units ACHS JOSÉ Administration Protocol Magnesium Hydroxide 30 ml 06/04/18 12:04 Milk Of Magnesia Liq* PO Q6H PRN CONSTIPATION Methocarbamol 750 mg 06/04/18 14:27 06/08/18 07:26 Robaxin Tab* PO 750 mg TID PRN Administration SPASMS Oxycodone HCl 5 mg 06/04/18 14:10 06/11/18 08:57 Roxycodone Tab* PO 5 mg Q4H PRN Administration PAIN - SEVERE Senna 2 tab 06/04/18 12:04 Senokot Tab* PO BEDTIME PRN CONSTIPATION Sodium Chloride 1 spray 06/14/18 14:00 06/15/18 09:19 Sodium Chloride 0.65% Nasal [place]* BOTH NARES 1 spray TID JOSÉ Administration Torsemide 10 mg 06/05/18 09:00 06/15/18 09:16 Torsemide PO 10 mg DAILY JOSÉ Administration Tramadol HCl 50 mg 06/04/18 14:25 06/15/18 03:46 Ultram* PO 50 mg Q6H PRN Administration PAIN - MODERATE Vital Signs: Vital Signs Temp Pulse Resp BP Pulse Ox 97.7 F 91 18 134/61 99 06/15/18 06:14 06/15/18 06:14 06/15/18 07:49 06/15/18 06:14 06/15/18 07:50 Lab Results: Laboratory Results - last 24 hr 06/14/18 06/14/18 06/14/18 11:29 16:08 20:16 POC Glucose (mg/dL) 125 H 128 H 164 H 06/15/18 07:45 POC Glucose (mg/dL) 139 H Exam: GENERAL: no acute distress. alert and appropriate LUNGS: clear to auscultation bilaterally HEART: irregularly irregular ABDOMEN: Soft, + bowel sounds, non-tender, non-distended EXTREMITIES: 2+ pedal pulses. Decreased bilateral LE edema. No calf pain. NEUROLOGIC: Motor 5/5 BLE except pain limited testing right hip. Sensation intact x4. SKIN: marlee c/d/i Assessment/Plan: 1. Right Hip Fracture: WBAT. PT/OT. Follow up with Dr. Sahu. 2. Diabetes: SSI. Consistent carb diet. Nutrition consult and diabetes education. Will get her BG monitor 3. Atrial Fibrillation/hypertension: Cardizem/torsemide/Eliquis. Cardiology referral at d/c 4. Urinary Tract Infection: Macrodantin finished 5. 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 Advance Directives: Has MOLST. DNR 7. Hyponatremia: stable. f/u routine labs 8. Acute post-op anemia: stable. f/u routine labs 9. Hyperbilirubinemia: not symptomatic. resolved. 10. Estimated LOS: 06/20/18 11. Congestion: normal saline nasal spray. Will add losenge prn. 06/15/18 10:10
[2018-06-15] MEDS: Atorvastatin* 20 MG TAB PO SCH (17:10)
[2018-06-16] MEDS: Insulin LISPRO* 1 UNITS UNIT SUBCUT SCH ×4 (07:43→20:54)
[2018-06-16] MEDS: Saline NASAL SPRAY 0.65%* BTL BOTH NARES SCH ×3 (08:37→21:09)
[2018-06-16] MEDS: Diltiazem CD CAP* 180 MG PO SCH (08:37)
[2018-06-16] MEDS: Docusate CAP* 100 MG PO SCH ×2 (08:37→21:04)
[2018-06-16] MEDS: Torsemide TAB 10 MG PO SCH (08:37)
[2018-06-16] MEDS: Apixaban* 5 MG TAB PO SCH ×2 (08:37→21:04)
[2018-06-16] MEDS: traMADol TAB* 50 MG PO PRN ×2 (08:37→21:04)
[2018-06-16] MEDS: Atorvastatin* 20 MG TAB PO SCH (17:15)
--- NOTE | 2018-06-16 18:33 | PN ---
Progress Note Date of Service: 06/16/18 Note: BRITTANEY RENDON was visited. Therapy notes read and reviewed. She has no complaints. Will remove marlee tomorrow. She is moving better Current Medications: Active Medications Generic Name Dose Route Start Last Admin Trade Name Freq PRN Reason Stop Dose Admin Acetaminophen 650 mg 06/04/18 12:04 06/11/18 20:09 Tylenol Tab* PO 650 mg Q6H PRN Administration FEVER/PAIN Apixaban 5 mg 06/04/18 21:00 06/16/18 08:37 Eliquis* PO 5 mg BID JOSÉ Administration Atorvastatin Calcium 20 mg 06/05/18 17:00 06/16/18 17:15 Lipitor* PO 20 mg 1700 JOSÉ Administration Dextrose 12.5 gm 06/04/18 12:10 D50w Syringe 50 Ml* IV PUSH .FOR FS < 60 - SS PRN FS < 60 Diltiazem HCl 360 mg 06/05/18 09:00 06/16/18 08:37 Cardizem Cd Cap* PO 360 mg DAILY JOSÉ Administration Docusate Sodium 100 mg 06/04/18 21:00 06/16/18 08:37 Colace Cap* PO 100 mg BID JOSÉ Administration Insulin Human Lispro 0 - 10 units 06/04/18 12:30 06/16/18 17:15 Humalog* SUBCUT 1 units ACHS JOSÉ Administration Protocol Magnesium Hydroxide 30 ml 06/04/18 12:04 06/16/18 16:06 Milk Of Magnesia Liq* PO 30 ml Q6H PRN Administration CONSTIPATION Methocarbamol 750 mg 06/04/18 14:27 06/08/18 07:26 Robaxin Tab* PO 750 mg TID PRN Administration SPASMS Oxycodone HCl 5 mg 06/04/18 14:10 06/11/18 08:57 Roxycodone Tab* PO 5 mg Q4H PRN Administration PAIN - SEVERE Senna 2 tab 06/04/18 12:04 Senokot Tab* PO BEDTIME PRN CONSTIPATION Sodium Chloride 1 spray 06/14/18 14:00 06/16/18 14:04 Sodium Chloride 0.65% Nasal [place]* BOTH NARES 1 spray TID JOSÉ Administration Throat Lozenges 1 vasquez 06/15/18 10:10 Chloraseptic Vasquez* PO Q6H PRN SORE THROAT Torsemide 10 mg 06/05/18 09:00 06/16/18 08:37 Torsemide PO 10 mg DAILY JOSÉ Administration Tramadol HCl 50 mg 06/04/18 14:25 06/16/18 08:37 Ultram* PO 50 mg Q6H PRN Administration PAIN - MODERATE Vital Signs: Vital Signs Temp Pulse Resp BP Pulse Ox 98.4 F 77 20 137/56 99 06/16/18 16:54 06/16/18 16:54 06/16/18 16:54 06/16/18 16:54 06/16/18 16:54 Lab Results: Laboratory Results - last 24 hr 06/15/18 06/16/18 06/16/18 21:01 07:40 12:04 POC Glucose (mg/dL) 144 H 120 H 122 H 06/16/18 16:25 POC Glucose (mg/dL) 150 H Exam: GENERAL: no acute distress. alert and appropriate LUNGS: clear to auscultation bilaterally HEART: irregularly irregular ABDOMEN: Soft, + bowel sounds, non-tender, non-distended EXTREMITIES: 2+ pedal pulses. Decreased bilateral LE edema. No calf pain. NEUROLOGIC: Motor 5/5 BLE except pain limited testing right hip. Sensation intact x4. SKIN: marlee c/d/i Assessment/Plan: 1. Right Hip Fracture: WBAT. PT/OT. Follow up with Dr. Sahu. 2. Diabetes: SSI. Consistent carb diet. Nutrition consult and diabetes education. Will get her BG monitor 3. Atrial Fibrillation/hypertension: Cardizem/torsemide/Eliquis. Cardiology referral at d/c 4. Urinary Tract Infection: Macrodantin finished 5. 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 Advance Directives: Has MOLST. DNR 7. Hyponatremia: stable. f/u routine labs 8. Acute post-op anemia: stable. f/u routine labs 9. Estimated LOS: 06/20/18 10. Congestion: normal saline nasal spray. Lozenges prn. 06/16/18 18:33
[2018-06-16] MEDS ORDERED: Sodium Phosphate ADULT ENEMA* 118 ml bottle PR PRN (18:55)
[2018-06-16] MEDS ORDERED: Sodium Phosphate ADULT ENEMA* 118 ml bottle ONE (18:57)
[2018-06-17] MEDS: traMADol TAB* 50 MG PO PRN (03:10)
[2018-06-17] MEDS: Insulin LISPRO* 1 UNITS UNIT SUBCUT SCH ×4 (08:43→21:08)
[2018-06-17] MEDS: Apixaban* 5 MG TAB PO SCH ×2 (08:44→20:09)
[2018-06-17] MEDS: Saline NASAL SPRAY 0.65%* BTL BOTH NARES SCH ×3 (08:44→20:11)
[2018-06-17] MEDS: Diltiazem CD CAP* 180 MG PO SCH (08:44)
[2018-06-17] MEDS: Docusate CAP* 100 MG PO SCH ×2 (08:45→20:09)
[2018-06-17] MEDS: Torsemide TAB 10 MG PO SCH (08:45)
[2018-06-17] MEDS: Acetaminophen TAB* 325 MG PO PRN ×2 (08:45→20:10)
--- NOTE | 2018-06-17 12:30 | PMRUTEAM ---
PMRU: Team Meeting Current Status: Nursing: Current Status Skin Deviations [Right Upper Other Buttocks] Skin Deviations [Right Hip] Incision Skin Deviation Description [ sm "bite saadia" like saadia unchanged Right Upper Buttocks] Skin Deviation Description [ incisions x3. redness at clips sites Right Hip] Bladder Current Status voiding in br Bowel Current Status colace given Nutrition Current Status appetite good Medication Current Status tylenol for pain Physical Therapy: Current Status Bed Mobility Assistance Not Tested Transfer Mobility Assistance Supervision,Contact Guard Assist Transfer/Bed Mobility Rolling Walker Recommended Devices Ambulation Assistance Contact Guard Assist Ambulation Assistive Devices Rolling Walker Number of Feet Patient 2x75, 1x30 Ambulated Stairs Assistance Not Tested Stairs Recommended Devices Two Rails Number of Stairs 3 Curb Not Tested Occupational Therapy: Current Status Upper Body Dressing Supervision Lower Body Dressing Supervision,Contact Guard Assist Lower Body Dressing Progress in standing, use of AE Bathing Contact Guard Assist Bathing Progress in standing Toileting Contact Guard Assist Toilet Transfer Contact Guard Assist Shower Transfer Contact Guard Assist Shower Transfer Progress swap out w/c to/from transfer bench at grab bar Eating Ind with Adaptive Equip Rec Therapy: Current Status Summary of Assessment and Pt. has been working on wordfinds and coloring Clinical Impression designs while in her room. Pt. has been euhtymic with full affect and is open to continued RT visits. Treatment Goals Pt. will continue engaging in leisure while on the unit. Treatment Plan Continue providing RT services Social Work: Current Status Discharge Plan return home with home care svs and family support Potential for Family Training pt's family live out of the area Anticipated Discharge Home Destination Discharge With home care svs and family support Nutrition: Current Status Monitoring pt eating well; nearly 75-100% of consistent carb diet. Mech soft textures Pt prefer script for meter in advance of d/c (if possible before grandsons visit 06/11) so family can obtain and she can practice while here. Stressed w/pt that reasonable target is needed considering age 83, lives alone. Goals: Physical Therapy: Initial Goals Bed Mobility Assistance Independent Transfer Mobility Assistance Independent Transfer/Bed Mobility Rolling Walker Recommended Devices Ambulation Independent Ambulation Recommended Devices Rolling Walker Ambulation Distance 150 Stairs Assistance Independent Stair Recommended Devices Two Rails Number of Stairs 5 Physical Therapy: Updated Goals Transfer/Bed Mobility Rolling Walker Recommended Devices Occupational Therapy: Initial Goals Goals to be Completed in (Days 10-14 ) Upper Body Bathing Routine Modified Independent with Lower Body Bathing Routine Modified Independent with Upper Body Dressing Routine Independent Lower Body Dressing Routine Modified Independent with Toilet Hygeine and Clothing Modified Independent with Management Routine Toilet Transfer Routine Modified Independent with Tub Transfer Routine Modified Independent with Functional Transfers for ADL Modified Independent with Grooming Routine Independent Feeding Routine Independent Light Housekeeping Tasks Modified Independent with Light Housekeeping Tasks Gregory for light meal prep Assistive Devices Nursing: Goals Bladder Goal independent Bowel Goal independent Nutrition Goal 100% of all meals consumed Medication Goal independent Nutrition: Goals Intervention Goals 1. Maintain adequate glycemic control per inpatient parameters w/o hypoglycemia and w/ consideration for advanced age. 2. Tolerates least restrictive texture w/o difficulty chewing. 3. Maintains adequate oral intake to support maintenance of lean body mass and rehab. 4. Pt expresses confidence re: home diabetes care plans prior to d/c. Social Work: Goals Discharge Plan return home with home care svs and family support Potential for Family Training pt's family live out of the area Anticipated Discharge Home Destination Discharge With home care svs and family support Care Plan: Care Plan ADL's - Improve/Maintain Start: 06/04/18 15:11 Freq: DAILY Status: Active Target: Protocol: Activity Type Activity Date Activity User E-Sign Co-Sign Detail Recorded Client Recorded Date Recorded By Document 06/13/18 14:01 [id number] 06/13/18 14:01 [id number] 06/13/18 14:01 PMRU Outcome: ADL's/ADL Transfers Orders/Interventions Occupational Therapy Evaluation & Treatment Communication Tool in Patient Room Device Yes Address Deficits Secondary To: right hip fx Patient to receive OT 5x/wk for 60-120 Therex min/day Self Care Management Group Therapy UE/LE ADL's with Assist Yes: Gregory ADL Transfers with Assist Yes: Gregory Toileting: Transfers,Clothing Management Yes: Gregory ,Hygeine w/Assist Light Kitchen/Laundry w/Assist Yes: Gregory for light meal prep Progression Toward Outcome/Goals Progressing Outcome/Goals Met Pt participated well in treatment session, required increased assistance for clothing management today due to tighter pants, pt states she will talk to her daughter about bringing different ones in. Cardiovascular- Improve/Maintain Start: 06/04/18 12:12 Freq: QSHIFT Status: Active Target: Protocol: Activity Type Activity Date Activity User E-Sign Co-Sign Detail Recorded Client Recorded Date Recorded By Document 06/17/18 11:23 [id number] 06/17/18 11:24 [id number] 06/17/18 11:23 PMRU Outcome: Cardiovascular Vital Signs q Shift for 48hrs Then BID Yes Daily Weight Ordered No Current Cardiovascular Outcome/Goal Maintain/ Achieve Baseline HR, BP , Perfusion Maintain/ Achieve Hemodynamic Stability Free of Abnormal Cardiac Symptoms Progression Toward Outcome/Goal Progressing DVT Prophylaxis- Improve/Maintain Start: 06/04/18 12:12 Freq: QSHIFT Status: Active Target: Protocol: Activity Type Activity Date Activity User E-Sign Co-Sign Detail Recorded Client Recorded Date Recorded By Document 06/17/18 11:23 [id number] 06/17/18 11:24 [id number] 06/17/18 11:23 PMRU Outcome: DVT Prophylaxis Outcome/Goals Remains Free of DVT Complies with DVT Prophylaxis /Treatment Demonstrates Knowledge of DVT Prevention/ Treatment TEDS Stockings on Every AM, Off at HS Progression Toward Outcome/Goals Progressing Outcome/Goals Met Comment darryl wraps applied Discharge Planning - Improve/Maintain Start: 06/04/18 12:12 Freq: DAILY Status: Active Target: Protocol: Activity Type Activity Date Activity User E-Sign Co-Sign Detail Recorded Client Recorded Date Recorded By Document 06/17/18 01:06 [id number] 06/17/18 01:06 [id number] 06/17/18 01:06 PMRU Outcome: Discharge Planning Update Patient Family No Outcome/Goals Demonstrates Understanding of Discharge Plan Progression Toward Outcome/Goals Progressing Education-Improve/Maintain Start: 06/04/18 12:12 Freq: QSHIFT Status: Active Target: Protocol: Activity Type Activity Date Activity User E-Sign Co-Sign Detail Recorded Client Recorded Date Recorded By Document 06/17/18 11:23 [id number] 06/17/18 11:24 [id number] 06/17/18 11:23 PMRU Outcome: Education Outcome/Goals Demonstrates Skills Encourage Questions Progression Toward Outcome/Goals Progressing Medication Administration Start: 06/04/18 12:12 Freq: QSHIFT Status: Active Target: Protocol: Activity Type Activity Date Activity User E-Sign Co-Sign Detail Recorded Client Recorded Date Recorded By Document 06/17/18 11:23 [id number] 06/17/18 11:24 [id number] 06/17/18 11:23 PMRU Outcome: Medication Administration Assess Patient Knowledge/Teach Med Yes Education for all Meds Outcome/Goals Patient Independent with Medication Administration at Home Progression Towards Outcome/Goals Progressing Is Patient Going Home on Lovenox? No Pain/Comfort- Improve/Maintain Start: 06/04/18 12:12 Freq: QSHIFT Status: Active Target: Protocol: Activity Type Activity Date Activity User E-Sign Co-Sign Detail Recorded Client Recorded Date Recorded By Document 06/17/18 11:23 [id number] [facility] 06/17/18 11:24 [id number] 06/17/18 11:23 PMRU Outcome: Pain/Comfort Outcome/Goals Demonstrates Knowledge and Use of Available Comfort Measures Achieves Acceptable Comfort/Pain Level as Determined by Patient/Condit Maintain Comfort Level Allowing Patient to Fully Participate in Rehab Progression Toward Outcome/Goals Progressing Outcome/Goals Met Comment tylenol for pain Safety- Improve/Maintain Start: 06/04/18 12:12 Freq: QSHIFT Status: Active Target: Protocol: Activity Type Activity Date Activity User E-Sign Co-Sign Detail Recorded Client Recorded Date Recorded By Document 06/17/18 11:23 [id number] [id number] 06/17/18 11:24 [id number] 06/17/18 11:23 PMRU Outcome: Safety Outcome/Goals Remain Free of Injury or Harm Prevent Falls/ Injury Progression Toward Outcome/Goals Progressing Skin- Improve/Maintain Start: 06/04/18 12:12 Freq: QSHIFT Status: Active Target: Protocol: Activity Type Activity Date Activity User E-Sign Co-Sign Detail Recorded Client Recorded Date Recorded By Document 06/17/18 11:23 [id number] [facility] 06/17/18 11:24 [id number] 06/17/18 11:23 PMRU Outcome: Skin Skin Risk Level Medium Skin Orders Dressing Change Outcome/Goals Free from Decubitus Surgical Incisions Healing Progression Toward Outcome/Goals Progressing Outcome/Goals Met Comment incisions x3 intact. redness at marlee Medicine Note: Length of Stay: 3 days Anticipated Discharge Destination: Home Tentative Discharge Date: 06/20/18 Discharged to: Home
--- NOTE | 2018-06-17 17:26 | PN ---
Progress Note Date of Service: 06/17/18 Note: BRITTANEY RENDON was visited. Therapy notes read and reviewed. Patient was discussed in interdisciplinary team rounds. Her marlee were removed without incident. Current Medications: Active Medications Generic Name Dose Route Start Last Admin Trade Name Freq PRN Reason Stop Dose Admin Acetaminophen 650 mg 06/04/18 12:04 06/17/18 08:45 Tylenol Tab* PO 650 mg Q6H PRN Administration FEVER/PAIN Apixaban 5 mg 06/04/18 21:00 06/17/18 08:44 Eliquis* PO 5 mg BID JOSÉ Administration Atorvastatin Calcium 20 mg 06/05/18 17:00 06/16/18 17:15 Lipitor* PO 20 mg 1700 JOSÉ Administration Dextrose 12.5 gm 06/04/18 12:10 D50w Syringe 50 Ml* IV PUSH .FOR FS < 60 - SS PRN FS < 60 Diltiazem HCl 360 mg 06/05/18 09:00 06/17/18 08:44 Cardizem Cd Cap* PO 360 mg DAILY JOSÉ Administration Docusate Sodium 100 mg 06/04/18 21:00 06/17/18 08:45 Colace Cap* PO 100 mg BID JOSÉ Administration Insulin Human Lispro 0 - 10 units 06/04/18 12:30 06/17/18 11:36 Humalog* SUBCUT Not Given ACHS [facility] Protocol Magnesium Hydroxide 30 ml 06/04/18 12:04 06/16/18 16:06 Milk Of Magnesia Liq* PO 30 ml Q6H PRN Administration CONSTIPATION Methocarbamol 750 mg 06/04/18 14:27 06/08/18 07:26 Robaxin Tab* PO 750 mg TID PRN Administration SPASMS Oxycodone HCl 5 mg 06/04/18 14:10 06/11/18 08:57 Roxycodone Tab* PO 5 mg Q4H PRN Administration PAIN - SEVERE Senna 2 tab 06/04/18 12:04 06/16/18 21:04 Senokot Tab* PO 2 tab BEDTIME PRN Administration CONSTIPATION Sodium Biphosphate/Sodium Phosphate 1 bottle 06/16/18 18:55 Fleet Enema* FL ONCE PRN CONSTIPATION Sodium Chloride 1 spray 06/14/18 14:00 06/17/18 08:44 Sodium Chloride 0.65% Nasal [place]* BOTH NARES 1 spray TID JOSÉ Administration Throat Lozenges 1 vasquez 06/15/18 10:10 Chloraseptic [place]* PO Q6H PRN SORE THROAT Torsemide 10 mg 06/05/18 09:00 06/17/18 08:45 Torsemide PO 10 mg DAILY JOSÉ Administration Tramadol HCl 50 mg 06/04/18 14:25 06/17/18 03:10 Ultram* PO 50 mg Q6H PRN Administration PAIN - MODERATE Vital Signs: Vital Signs Temp Pulse Resp BP Pulse Ox 98.0 F 94 14 111/92 100 06/17/18 06:15 06/17/18 06:15 06/17/18 06:15 06/17/18 06:15 06/17/18 06:15 Lab Results: Laboratory Results - last 24 hr 06/16/18 06/17/18 06/17/18 20:47 07:29 11:35 POC Glucose (mg/dL) 123 H 147 H 111 H 06/17/18 16:46 POC Glucose (mg/dL) 170 H Exam: GENERAL: no acute distress. alert and appropriate LUNGS: clear to auscultation bilaterally HEART: irregularly irregular ABDOMEN: Soft, + bowel sounds, non-tender, non-distended EXTREMITIES: 2+ pedal pulses. Decreased bilateral LE edema. No calf pain. NEUROLOGIC: Motor 5/5 BLE except pain limited testing right hip. Sensation intact x4. SKIN: marlee removed. Steristrips applied Assessment/Plan: 1. Right Hip Fracture: WBAT. PT/OT. Follow up with Dr. Sahu. 2. Diabetes: SSI. Consistent carb diet. Nutrition consult and diabetes education. Will get her BG monitor 3. Atrial Fibrillation/hypertension: Cardizem/torsemide/Eliquis. Cardiology referral at d/c 4. DVT Prophylaxis and h/o PEs: Eliquis 5. Advance Directives: Has MOLST. DNR 6. Hyponatremia: stable. f/u routine labs 7. Acute post-op anemia: stable. f/u routine labs 8. Congestion: normal saline nasal spray. Lozenges prn. 9. Estimated LOS: 06/20/18 06/17/18 17:26 06/17/18 17:27
[2018-06-17] MEDS: Atorvastatin* 20 MG TAB PO SCH (17:39)
[2018-06-18] MEDS: traMADol TAB* 50 MG PO PRN ×2 (02:20→20:34)
[2018-06-18] MEDS: Acetaminophen TAB* 325 MG PO PRN ×2 (05:38→16:38)
[2018-06-18] MEDS: Apixaban* 5 MG TAB PO SCH ×2 (09:25→20:35)
[2018-06-18] MEDS: Diltiazem CD CAP* 180 MG PO SCH (09:25)
[2018-06-18] MEDS: Docusate CAP* 100 MG PO SCH ×2 (09:25→20:35)
[2018-06-18] MEDS: Torsemide TAB 10 MG PO SCH (09:25)
[2018-06-18] MEDS: Saline NASAL SPRAY 0.65%* BTL BOTH NARES SCH ×3 (09:27→20:44)
[2018-06-18] MEDS: Insulin LISPRO* 1 UNITS UNIT SUBCUT SCH ×4 (09:28→20:42)
[2018-06-18] MEDS: Atorvastatin* 20 MG TAB PO SCH (16:38)
--- NOTE | 2018-06-18 20:48 | PN ---
Progress Note Date of Service: 06/18/18 Note: BRITTANEY RENDON was visited. Therapy notes read and reviewed. She is feeling pretty good but a little tired. No complaints of SOB Current Medications: Active Medications Generic Name Dose Route Start Last Admin Trade Name Freq PRN Reason Stop Dose Admin Acetaminophen 650 mg 06/04/18 12:04 06/18/18 16:38 Tylenol Tab* PO 650 mg Q6H PRN Administration FEVER/PAIN Apixaban 5 mg 06/04/18 21:00 06/18/18 20:35 Eliquis* PO 5 mg BID JOSÉ Administration Atorvastatin Calcium 20 mg 06/05/18 17:00 06/18/18 16:38 Lipitor* PO 20 mg 1700 JOSÉ Administration Dextrose 12.5 gm 06/04/18 12:10 D50w Syringe 50 Ml* IV PUSH .FOR FS < 60 - SS PRN FS < 60 Diltiazem HCl 360 mg 06/05/18 09:00 06/18/18 09:25 Cardizem Cd Cap* PO 360 mg DAILY JOSÉ Administration Docusate Sodium 100 mg 06/04/18 21:00 06/18/18 20:35 Colace Cap* PO 100 mg BID JOSÉ Administration Insulin Human Lispro 0 - 10 units 06/04/18 12:30 06/18/18 20:42 Humalog* SUBCUT 1 units ACHS JOSÉ Administration Protocol Magnesium Hydroxide 30 ml 06/04/18 12:04 06/16/18 16:06 Milk Of Magnesia Liq* PO 30 ml Q6H PRN Administration CONSTIPATION Methocarbamol 750 mg 06/04/18 14:27 06/08/18 07:26 Robaxin Tab* PO 750 mg TID PRN Administration SPASMS Oxycodone HCl 5 mg 06/04/18 14:10 06/11/18 08:57 Roxycodone Tab* PO 5 mg Q4H PRN Administration PAIN - SEVERE Senna 2 tab 06/04/18 12:04 06/16/18 21:04 Senokot Tab* PO 2 tab BEDTIME PRN Administration CONSTIPATION Sodium Biphosphate/Sodium Phosphate 1 bottle 06/16/18 18:55 Fleet Enema* [place] ONCE PRN CONSTIPATION Sodium Chloride 1 spray 06/14/18 14:00 06/18/18 20:44 Sodium Chloride 0.65% Nasal [place]* BOTH NARES 1 spray TID JOSÉ Administration Throat Lozenges 1 vasquez 06/15/18 10:10 Chloraseptic Vasquez* PO Q6H PRN SORE THROAT Torsemide 10 mg 06/05/18 09:00 06/18/18 09:25 Torsemide PO 10 mg DAILY JOSÉ Administration Tramadol HCl 50 mg 06/04/18 14:25 06/18/18 20:34 Ultram* PO 50 mg Q6H PRN Administration PAIN - MODERATE Vital Signs: Vital Signs Temp Pulse Resp BP Pulse Ox 97.4 F 86 18 138/55 100 06/18/18 16:46 06/18/18 16:46 06/18/18 20:34 06/18/18 16:46 06/18/18 17:32 Lab Results: Laboratory Results - last 24 hr 06/18/18 06/18/18 06/18/18 07:33 12:09 16:32 POC Glucose (mg/dL) 151 H 98 154 H Exam: GENERAL: no acute distress. alert and appropriate LUNGS: clear to auscultation bilaterally HEART: irregularly irregular ABDOMEN: Soft, + bowel sounds, non-tender, non-distended EXTREMITIES: 2+ pedal pulses. Decreased bilateral LE edema. No calf pain. NEUROLOGIC: Motor 5/5 BLE except pain limited testing right hip. Sensation intact x4. SKIN: Suture line healed Assessment/Plan: 1. Right Hip Fracture: WBAT. PT/OT. Follow up with Dr. Sahu. 2. Diabetes: SSI. Consistent carb diet. Nutrition consult and diabetes education. Will get her BG monitor 3. Atrial Fibrillation/hypertension: Cardizem/torsemide/Eliquis. Cardiology referral at d/c 4. DVT Prophylaxis and h/o PEs: Eliquis 5. Advance Directives: Has MOLST. DNR 6. Hyponatremia: stable. f/u routine labs 7. Acute post-op anemia: stable. f/u routine labs 8. Congestion: normal saline nasal spray. Lozenges prn. 9. Estimated LOS: 06/20/18 06/18/18 20:49
[2018-06-19] MEDS: Insulin LISPRO* 1 UNITS UNIT SUBCUT SCH ×4 (07:45→21:37)
[2018-06-19] MEDS: Saline NASAL SPRAY 0.65%* BTL BOTH NARES SCH ×3 (09:31→21:39)
[2018-06-19] MEDS: Torsemide TAB 10 MG PO SCH (09:33)
[2018-06-19] MEDS: Apixaban* 5 MG TAB PO SCH ×2 (09:33→20:31)
[2018-06-19] MEDS: Docusate CAP* 100 MG PO SCH ×2 (09:33→20:31)
[2018-06-19] MEDS: Diltiazem CD CAP* 180 MG PO SCH (09:33)
[2018-06-19] MEDS: Acetaminophen TAB* 325 MG PO PRN ×3 (09:33→21:38)
[2018-06-19] MEDS: Atorvastatin* 20 MG TAB PO SCH (17:29)
--- NOTE | 2018-06-19 18:02 | PN ---
Progress Note Date of Service: 06/19/18 Note: BRITTANEY RENDON was visited. Therapy notes read and reviewed. Excited about discharge tomorrow. I gave her daughter prescriptions for a glucometer and test strips. Current Medications: Active Medications Generic Name Dose Route Start Last Admin Trade Name Freq PRN Reason Stop Dose Admin Acetaminophen 650 mg 06/04/18 12:04 06/19/18 15:32 Tylenol Tab* PO 650 mg Q6H PRN Administration FEVER/PAIN Apixaban 5 mg 06/04/18 21:00 06/19/18 09:33 Eliquis* PO 5 mg BID JOSÉ Administration Atorvastatin Calcium 20 mg 06/05/18 17:00 06/19/18 17:29 Lipitor* PO 20 mg 1700 JOSÉ Administration Dextrose 12.5 gm 06/04/18 12:10 D50w Syringe 50 Ml* IV PUSH .FOR FS < 60 - SS PRN FS < 60 Diltiazem HCl 360 mg 06/05/18 09:00 06/19/18 09:33 Cardizem Cd Cap* PO 360 mg DAILY JOSÉ Administration Docusate Sodium 100 mg 06/04/18 21:00 06/19/18 09:33 Colace Cap* PO 100 mg BID JOSÉ Administration Insulin Human Lispro 0 - 10 units 06/04/18 12:30 06/19/18 17:27 Humalog* SUBCUT 2 units ACHS JOSÉ Administration Protocol Magnesium Hydroxide 30 ml 06/04/18 12:04 06/16/18 16:06 Milk Of Magnesia Liq* PO 30 ml Q6H PRN Administration CONSTIPATION Methocarbamol 750 mg 06/04/18 14:27 06/08/18 07:26 Robaxin Tab* PO 750 mg TID PRN Administration SPASMS Oxycodone HCl 5 mg 06/04/18 14:10 06/11/18 08:57 Roxycodone Tab* PO 5 mg Q4H PRN Administration PAIN - SEVERE Senna 2 tab 06/04/18 12:04 06/16/18 21:04 Senokot Tab* PO 2 tab BEDTIME PRN Administration CONSTIPATION Sodium Biphosphate/Sodium Phosphate 1 bottle 06/16/18 18:55 Fleet Enema* [place] ONCE PRN CONSTIPATION Sodium Chloride 1 spray 06/14/18 14:00 06/19/18 15:31 Sodium Chloride 0.65% Nasal [place]* BOTH NARES 1 spray TID JOSÉ Administration Throat Lozenges 1 vasquez 06/15/18 10:10 Chloraseptic Vasquez* PO Q6H PRN SORE THROAT Torsemide 10 mg 06/05/18 09:00 06/19/18 09:33 Torsemide PO 10 mg DAILY JOSÉ Administration Tramadol HCl 50 mg 06/04/18 14:25 06/18/18 20:34 Ultram* PO 50 mg Q6H PRN Administration PAIN - MODERATE Vital Signs: Vital Signs Temp Pulse Resp BP Pulse Ox 98.6 F 74 22 135/53 98 06/19/18 15:41 06/19/18 15:41 06/19/18 15:41 06/19/18 15:41 06/19/18 15:41 Lab Results: Laboratory Results - last 24 hr 06/18/18 06/19/18 06/19/18 20:34 07:42 11:50 POC Glucose (mg/dL) 140 H 154 H 78 Exam: GENERAL: no acute distress. alert and appropriate LUNGS: clear to auscultation bilaterally HEART: irregularly irregular ABDOMEN: Soft, + bowel sounds, non-tender, non-distended EXTREMITIES: 2+ pedal pulses. Decreased bilateral LE edema. No calf pain. NEUROLOGIC: Motor 5/5 BLE except pain limited testing right hip. Sensation intact x4. SKIN: Suture line healed Assessment/Plan: 1. Right Hip Fracture: WBAT. PT/OT. Follow up with Dr. Sahu. 2. Diabetes: SSI. Consistent carb diet. Nutrition consult and diabetes education. Will get her BG monitor 3. Atrial Fibrillation/hypertension: Cardizem/torsemide/Eliquis. Cardiology referral at d/c 4. DVT Prophylaxis and h/o PEs: Eliquis 5. Advance Directives: Has MOLST. DNR 6. Hyponatremia: stable. f/u routine labs 7. Acute post-op anemia: stable. f/u routine labs 8. Congestion: normal saline nasal spray. Lozenges prn. 9. Estimated LOS: 06/20/18 06/19/18 18:02
[2018-06-20] MEDS: traMADol TAB* 50 MG PO PRN ×2 (01:37→09:40)
[2018-06-20 05:05] LABS: ABS Basophils 0.1 10^3/ul (0-0.2); ABS Eosinophils 0.2 10^3/ul (0-0.6); ABS Lymphocytes 2.1 10^3/ul (1.0-4.8); ABS Monocytes 0.7 10^3/ul (0-0.8); ABS Neutrophils 3.8 10^3/ul (1.5-7.7); Eosinophil % 2.7 %; Hematocrit 30 % (35-47); Hemoglobin 10.3 g/dL (12.0-16.0); Lymphocyte % 30.6 %; Mean Corpuscular HGB Conc 34 g/dL (31-36); Mean Corpuscular Hemoglobin 29 pg (27-31); Mean Corpuscular Volume 85 fL (80-97); Platelet Count 390 10^3/uL (150-450); Red Blood Count 3.58 10^6 /uL (3.70-4.87); Red Cell Distribution Width 15 % (10.5-15); White Blood Count 6.9 10^3/uL (3.5-10.8)
[2018-06-20 05:29] LABS: Albumin 3.4 g/dL (3.2-5.2); Albumin/Globulin Ratio 1.3 (1-3); Calcium 8.8 mg/dL (8.6-10.3); EGFR Non-African American 91.7 (>60); Globulin 2.7 g/dL (2-4); Potassium 4.2 mmol/L (3.5-5.0); Total Bilirubin 0.7 mg/dL (0.2-1.0); Total Protein 6.1 g/dL (6.4-8.9)
[2018-06-20 05:34] VITALS: BP 145/64
[2018-06-20] MEDS: Insulin LISPRO* 1 UNITS UNIT SUBCUT SCH ×2 (09:17→11:40)
[2018-06-20] MEDS: Acetaminophen TAB* 325 MG PO PRN (09:41)
[2018-06-20] MEDS: Apixaban* 5 MG TAB PO SCH (09:42)
[2018-06-20] MEDS: Diltiazem CD CAP* 180 MG PO SCH (09:42)
[2018-06-20] MEDS: Saline NASAL SPRAY 0.65%* BTL BOTH NARES SCH (09:42)
[2018-06-20] MEDS: Torsemide TAB 10 MG PO SCH (09:42)
[2018-06-20] MEDS: Docusate CAP* 100 MG PO SCH (09:42)
--- NOTE | 2018-06-20 22:54 | DS ---
DISCHARGE SUMMARY: DATE OF ADMISSION: 06/04/18 DATE OF DISCHARGE: 06/20/18 DISCHARGE DIAGNOSES: 1. Right hip fracture. 2. Atrial fibrillation. 3. History of pulmonary embolism. 4. Aortic stenosis. 5. Diabetes. 6. Urinary tract infection. HISTORY OF PRESENT ILLNESS AND HOSPITAL COURSE: For complete history of the events leading up to her rehab stay, please see the history and physical dictated by me on 06/04/18. While on the rehab unit, the patient had foul- smelling urine. A urinalysis was sent which was consistent with a urinary tract infection. She was started on Macrodantin and received a week's worth of Macrodantin for this. Her urine ultimately grew out E. Coli sensitive to Macrodantin. The patient's wound healed well. Her marlee were able to be removed. The patient was otherwise medically stable. She was maintained on Eliquis for DVT prophylaxis as well as her atrial fibrillation. The patient's blood sugars improved and were in the 150 to 175 range. A glucometer was ordered for the patient. The family was taught how to test blood sugars. The patient otherwise was medically stable. She was seen by both Physical and Occupational Therapy and made good gains with both disciplines. With physical therapy at the time of admission, the patient required max assist for bed mobility, max assist for transfers. She was unable to ambulate. With occupational therapy at the time of admission, the patient was min assist for upper body dressing, total assist for lower body dressing, total assistance for toileting, total assist for toilet transfers. By the time of discharge, the patient was independent in transfers, independent ambulating 150 feet with a rolling walker, independent in toileting, independent in toilet transfers, and independent with dressing. The patient was discharged home 06/20/18. DISCHARGE DIET: Consistent carbohydrate. DISCHARGE MEDICATIONS: 1. Eliquis 5 mg twice daily. 2. Cardizem CD 360 mg daily. 3. Oxycodone 5 mg every 4 hours as needed. 4. Torsemide 10 mg daily. 5. Tramadol 50 mg every 6 hours as needed. 6. Crestor 10 mg daily. SERVICES AFTER DISCHARGE: Through visiting nurse service. She will have home nursing, home physical therapy. FOLLOWUP: Followup with Dr. Peter Sahu in 1 to 2 weeks. She also had a followup appointment made with Dr. Hill. TIME SPENT: Time for this discharge was approximately 50 minutes, greater than half of which was spent with the patient and her daughter and her son explaining post-rehabilitation medicines and followup. [id number]/[facility] #: [id number] KAYLEIGH
== END 2018-06-20 12:50 | disposition home health service (06) | DRG 560 ==
LOC: PMRU 10:57
PROVIDERS: ADMIT Physical Medicine & Rehabilitation; ATTEND Physical Medicine & Rehabilitation
PROC: F07Z5ZZ Bed Mobility Treatment (ICD-10-PCS; principal; 2018-06-04)
PROC: F07Z9ZZ Gait Training/Functional Ambulation Treatment (ICD-10-PCS; 2018-06-04)
PROC: F07Z8ZZ Transfer Training Treatment (ICD-10-PCS; 2018-06-04)
PROC: F08Z0ZZ Bathing/Showering Techniques Treatment (ICD-10-PCS; 2018-06-04)
PROC: F08Z1ZZ Dressing Techniques Treatment (ICD-10-PCS; 2018-06-04)
PROC: F08Z3ZZ Feeding/Eating Treatment (ICD-10-PCS; 2018-06-04)
DX: S72.001D Fracture of unspecified part of neck of right femur, subsequent encounter for closed fracture with routine healing (principal); N39.0 Urinary tract infection, site not specified; E87.1 Hypo-osmolality and hyponatremia; D62 Acute posthemorrhagic anemia; I48.91 Unspecified atrial fibrillation; E11.9 Type 2 diabetes mellitus without complications; B96.20 Unspecified Escherichia coli [E. coli] as the cause of diseases classified elsewhere; I10 Essential (primary) hypertension; E80.6 Other disorders of bilirubin metabolism; E78.5 Hyperlipidemia, unspecified; R09.81 Nasal congestion; Z66 Do not resuscitate; I08.0 Rheumatic disorders of both mitral and aortic valves; W18.30XD Fall on same level, unspecified, subsequent encounter; Z86.711 Personal history of pulmonary embolism; Z86.73 Personal history of transient ischemic attack (TIA), and cerebral infarction without residual deficits; Z79.01 Long term (current) use of anticoagulants; Z79.1 Long term (current) use of non-steroidal anti-inflammatories (NSAID); Z79.899 Other long term (current) drug therapy; Z88.0 Allergy status to penicillin; Z88.8 Allergy status to other drugs, medicaments and biological substances; Z79.4 Long term (current) use of insulin
CPT/HCPCS: 36415; 80053; 81003; 81015; 85025; 87077; 87086; 87186; A9270-GY

== ENCOUNTER 2018-11-17 14:01 | Emergency (ER) | payer MEDICARE, MEDICAID ==
--- OUTSIDE RECORDS SUMMARY | 2018-11-17 14:16 | XMS REPORT | Continuity of Care Document ---
:1935 External Reference #:[id number] Author Name Adriel Frost M.D. (transmitted by agent of provider Deepa Quiñones) Address [address] [facility] [address] [place] [address] Care Team Providers Name Role Phone Kate Bates DO - Hospitalist Care Team Information Teller Vault Problems Active Problems Provider Date Closed intertrochanteric fracture Peter Sahu MD Onset: 06/02/2018 Social History Type Date Description Comments Sex Unknown Tobacco Use Start: Unknown End: Former Cigarette Smoker Unknown Smoking Status Reviewed: 11/07/18 Former Cigarette Smoker ETOH Use Has consumed alcohol in Last drink 2015 the past Tobacco Use Start: Unknown End: Patient is a former Unknown smoker Recreational Drug Use Denies Drug Use Exercise Type/Frequency Does not exercise Allergies, Adverse Reactions, Alerts Active Allergies Reaction Severity Comments Date Penicillin V 07/31/2018 Inactive Allergies NKDA 07/03/2018 Medications Active Medications SIG Qnty Indications Ordering Provider Date Bath/Shower Seat With use daily in 1units Kate Bates DO 10/27/2018 Back/Adjustable bath Dx Misc S72.141D Ov 06/2018 Equate Laxitive One tab by mouth Qutaybeh S. 07/30/2018 as needed Kady Frost Centrum Adults One tab daily Qutaybrudolph S. 07/30/2018 Tablets Kady Frost Eliquis 1 by mouth twice 90tabs Kate Bates, DO 5mg Tablets a day Cardizem CD 1 by mouth every 90caps Kate Bates, DO 360mg Caps day ER 24HR Torsemide 1 by mouth every 90tabs Kate Senner, DO 10mg Tablets day Crestor 1 by mouth every 90tabs Kate Senner, DO 10mg Tablets day Tylenol 8 Hour 1 by mouth twice Unknown 650mg a day as needed Tablets ER Immunizations Description No Information Available Vital Signs Date Vital Result Comment 11/07/2018 3:06pm Height 61 inches 5'1" Weight 161.38 lb with shoes Heart Rate 84 /min irregular BP Systolic Sitting 166 mmHg Rue (regular cuff) BP Diastolic Sitting 78 mmHg Rue (regular cuff) BP Systolic Standing 176 mmHg BP Diastolic Standing 90 mmHg BMI (Body Mass Index) 30.5 kg/m2 Ejection Fraction 55-60% Evan 08/27/18 07/31/2018 1:25pm Height 61 inches 5'1" Weight 161.00 lb with shoes Heart Rate 62 /min radial, regular BP Systolic Sitting 144 mmHg Ra, reg cuff BP Diastolic Sitting 84 mmHg Ra, reg cuff BP Systolic Standing 0 mmHg unable to obtain BP Diastolic Standing 0 mmHg unable to obtain BP Systolic Lying Down 140 mmHg LA, reg cuff sitting BP Diastolic Lying Down 76 mmHg LA, reg cuff sitting BMI (Body Mass Index) 30.4 kg/m2 Ejection Fraction 55%-60% echo 11/26/17 Results Description No Information Available Procedures Date Code Description Status 08/27/2018 38381 Moderate Sedation Services; Same Phys Intl 15 Mins; PT >= Completed 5 Years 08/27/2018 14953 Color Flow Doppler/Interp & Reprt Completed 08/27/2018 92051 Pulse Wave/Continuous-Interp.RPT Completed 08/27/2018 11260 Echocardiography, Transesophageal, Real Time W/Image 2D Completed W/W/O M-M 08/25/2018 80557 Holter Monitor Review (24 hr)dr review & interp only Completed 08/19/2018 39306 ECG Monitor/Recording W/Visual Superimposition Scanning Completed 08/19/2018 32621 ECG Monitor/Recording W/Visual Superimposition Scanning Completed 08/13/2018 37019 Treadmill Interp/Report Only Completed 08/13/2018 90650 Stress Test Supervsn W/Out I/R Completed 07/31/2018 67668 EKG Tracing & Interpretation Completed 06/02/2018 75389 FX TX Inter/Sonja Or Sub Chanteric Femoral FX W/Implant Completed 06/02/2018 70437 FX TX Inter/Sonja Or Sub Chanteric Femoral FX W/Implant Completed Medical Devices Description No Information Available Encounters Type Date Location Provider Dx Diagnosis Office Visit 07/31/2018 [facility] Qutaybrudolph S. I10 Essential ( primary) 1:40p Kady Frost hypertension E11.9 Type 2 diabetes mellitus without complications I48.91 Unspecified atrial fibrillation I26.99 Other pulmonary embolism without acute cor pulmonale R60.0 Localized edema R94.31 Abnormal electrocardiogram [ECG] [EKG] R07.9 Chest pain, unspecified R06.02 Shortness of breath I35.0 Nonrheumatic aortic (valve) stenosis I36.1 Nonrheumatic tricuspid (valve) insufficiency I34.0 Nonrheumatic mitral (valve) insufficiency Office Visit 07/03/2018 11:20a DO Not Use Care Kate S72.141D Displ intertroch Connections Senner, DO fx r femur, subs [facility] [employer] [facility] for clos fx w routn heal E11.9 Type 2 diabetes mellitus without complications I10 Essential (primary) hypertension I26.99 Other pulmonary embolism without acute cor pulmonale I48.91 Unspecified atrial fibrillation 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 S72.141A Displaced Visit 1:37p stephon Nava, intertrochanteric Hospitalists Kady,FACP fracture of right femur, init Office 06/03/2018 [facility] Deandre Taylor S72.001A Fracture of unsp part Visit 1:37p stephon Nava, of neck of right Hospitalists Kady,FACP femur, init E87.1 Hypo-osmolality and hyponatremia E11.9 Type 2 diabetes mellitus without complications Office Visit 06/02/2018 [facility] Deandre Taylor S72.001A Fracture of 1:37p stephon Nava M.D.,FACP unsp part of Hospitalists neck of right femur, init E87.1 Hypo-osmolality and hyponatremia E11.9 Type 2 diabetes mellitus without complications Office Visit 06/01/2018 1:36p [facility] Winsome Jane, S72.001A Fracture of Assoc,pc [employer]UD GRAD[employer] unsp part of Hospitalists neck of right femur, init I10 Essential (primary) hypertension E11.9 Type 2 diabetes mellitus without complications I48.91 Unspecified atrial fibrillation R60.0 Localized edema Office 06/01/2018 [facility] S72.21xA Displaced Visit 11:06a [facility] BRENDA C[facility]denas subtrochanteric C.M.A. fracture of right femur, init W19.xxxA Unspecified fall, initial encounter Office Visit 05/31/2018 1:36p [facility] S72.001A Fracture of Assoc,pc Kady Adamson unsp part of Hospitalists neck of right femur, init I48.91 Unspecified atrial fibrillation E11.9 Type 2 diabetes mellitus without complications I10 Essential (primary) hypertension Assessments Date Code Description Provider 11/07/2018 I48.91 Unspecified atrial fibrillation Adriel Frost M.D. 11/07/2018 I10 Essential (primary) hypertension Adriel Frost M.D. 11/07/2018 I35.0 Nonrheumatic aortic (valve) stenosis Adriel Frost M.D. 11/07/2018 I34.0 Nonrheumatic mitral (valve) Adriel Frost M.D. insufficiency 08/27/2018 I48.91 Unspecified atrial fibrillation Adriel Frost M.D. 08/25/2018 I48.91 Unspecified atrial fibrillation Adriel Frost M.D. 08/19/2018 I48.91 Unspecified atrial fibrillation Adriel Frost M.D. 08/19/2018 I48.91 Unspecified atrial fibrillation Nurse Visit cc 08/13/2018 R94.31 Abnormal electrocardiogram [ECG] Adriel Frost M.D. [EKG] 07/31/2018 I10 Essential (primary) hypertension Adriel Frost M.D. 07/31/2018 E11.9 Type 2 diabetes mellitus without Adriel Frost M.D. complications 07/31/2018 I48.91 Unspecified atrial fibrillation Adriel Frost M.D. 07/31/2018 I26.99 Other pulmonary embolism without Adriel Frost M.D. acute cor pulmonale 07/31/2018 R60.0 Localized edema Adriel Frost M.D. 07/31/2018 R94.31 Abnormal electrocardiogram [ECG] Adriel Frost M.D. [EKG] 07/31/2018 R07.9 Chest pain, unspecified Adriel Frost M.D. 07/31/2018 R06.02 Shortness of breath Adriel Frost M.D. 07/31/2018 I35.0 Nonrheumatic aortic (valve) stenosis Adriel Frost M.D. 07/31/2018 I36.1 Nonrheumatic tricuspid (valve) Adriel Frost M.D. insufficiency 07/31/2018 I34.0 Nonrheumatic mitral (valve) Adriel Frost M.D. 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 Bowlus, M.D.,FACP of right femur, init 06/03/2018 S72.141D Displ intertroch fx r femur, subs for RAMIRO Guzman clos fx w routn heal 06/03/2018 S72.001A Fracture of unsp part of neck of Deandre Akbar M.D. ,FACP right femur, init 06/03/2018 E87.1 Hypo-osmolality and hyponatremia Deandre Akbar M.D., FACP 06/03/2018 E11.9 Type 2 diabetes mellitus without Deandre Akbar M.D., FACP complications 06/02/2018 S72.141A Displaced intertrochanteric fracture ANA Jamison of right femur, init 06/02/2018 S72.001A Fracture of unsp part of neck of Deandre Akbar M.D. ,FACP right femur, init 06/02/2018 S72.141A Displaced intertrochanteric fracture Peter Sahu MD of right femur, init 06/02/2018 E87.1 Hypo-osmolality and hyponatremia Deandre Akbar M.D., FACP 06/02/2018 E11.9 Type 2 diabetes mellitus without Deandre Akbar M.D., FACP complications 06/01/2018 S72.21xA Displaced subtrochanteric fracture of Ailin Cárdenas PA-C right femur, init 06/01/2018 S72.001A Fracture of unsp part of neck of Winsome Buck, [employer] GRADER right femur, init 06/01/2018 W19.xxxA Unspecified fall, initial encounter Ailin Cárdenas PA-C 06/01/2018 I10 Essential (primary) hypertension Winsome Buck, [employer] GR[employer]ER 06/01/2018 E11.9 Type 2 diabetes mellitus without Winsome Buck, [employer] GR[employer]ER complications 06/01/2018 I48.91 Unspecified atrial fibrillation Winsome Buck, [employer] GR[employer]ER 06/01/2018 R60.0 Localized edema Winsome Buck, SPUD GRADER 05/31/2018 S72.001A Fracture of unsp part of neck of Peter Adamson M.D. right femur, init 05/31/2018 I48.91 Unspecified atrial fibrillation Peter Adamson M.D. 05/31/2018 E11.9 Type 2 diabetes mellitus without Peter Adamson M.D. complications 05/31/2018 I10 Essential (primary) hypertension Peter Adamson M.D. Plan of Treatment 11/07/2018 - Adriel Frost M.D.I48.91 Unspecified atrial fibrillationFollow up:one yr ovI10 Essential (primary) srirfelbyaiyK74.0 Nonrheumatic aortic (valve) stlrwhavI97.0 Nonrheumatic mitral (valve) insufficiency Functional Status Description No Information Available Mental Status Description No Information Available Referrals Refer to Reason for Referral Status Appt Date Silvia Duke MD Sent 07/31/[address] [place] [address] [phone]
--- NOTE | 2018-11-17 16:55 | ED ---
Throat Pain/Nasal Congestion - HPI Summary HPI Summary: Patient is a 83 y/o F on Eliquis for afib who presents to [facility] with complaints of bleeding to right eye. Sx are reported to have onset four days ago. Eye was initially just bloodshot. She reports relief in Sx by icing her eye. Daughter first noted Sx three days ago. Patient uses glasses. Injury to head or eye are denied. She states that she has intermittent sharp pain at the right eye. Last episode of pain was last night. Hx of cataracts noted. Patient does not report any fever, chills, sore throat, CP, SOB, cough, abdominal pain, N/V, dysuria, hematuria, myalgia, edema, rash, and dizziness. On triage, pain is rated 3/10, nothing is noted to aggravate Sx, nothing is noted to alleviate Sx. Home medications and allergies are reviewed. - History of Current Complaint Chief Complaint: EDEyeProblem Time Seen by Provider: 11/17/18 16:44 Hx Obtained From: Patient Onset/Duration: Lasting Days, Still Present Severity: Mild Associated Signs And Symptoms: Positive: Negative Cough: None - Allergies/Home Medications Allergies/Adverse Reactions: Allergies Allergy/AdvReac Type Severity Reaction Status Date / Time Penicillins Allergy Intermediate Rash And Verified 11/17/18 14:11 Itching carvedilol [From Coreg] AdvReac Intermediate Coughing Verified 11/17/18 14:11 Home Medications: Home Medications Acetaminophen [Acetaminophen Extra Strength] 500 - 1,000 mg PO Q6HR PRN [History Confirmed 11/17/18] Multivit with Calcium,Iron,Min [Multiple Vitamins For Women] 1 tab PO DAILY [History Confirmed 11/17/18] Rosuvastatin (NF) [Crestor (NF)] 10 mg PO DAILY 11/17/18 [History Confirmed ] Sennosides 8.6 mg PO DAILY 11/17/18 [History Confirmed 11/17/18] Torsemide TAB* [Demadex*] 10 mg PO DAILY 11/17/18 [History Confirmed 11/17/18] PMH/Surg Hx/FS Hx/Imm Hx Endocrine/Hematology History: Reports: Hx Diabetes Denies: Hx Thyroid Disease, Hx Anemia Cardiovascular History: Reports: Hx Hypercholesterolemia, Hx Hypertension, Hx Valvular Heart Disease - Aortic stenosis, Other Cardiovascular Problems/ Disorders - mitral regurgitation, vavular heart disease Denies: Hx Angina, Hx Coronary Artery Disease, Hx Pacemaker/ICD Respiratory History: Reports: Hx Seasonal Allergies - dust, dogs, Other Respiratory Problems/Disorders - bilateral PE's 2017 Denies: Hx Asthma GI History: Reports: Other GI Disorders - constipation and hemorrhoids History: Reports: Other Problems/Disorders - urgency, UTI Denies: Hx Kidney Stones, Hx Renal Disease Musculoskeletal History: Reports: Hx Arthritis, Hx Osteoporosis Sensory History: Reports: Hx Hearing Aid - left ear only Denies: Hx Contacts or Glasses, Hx Deafness Opthamlomology History: Denies: Hx Contacts or Glasses Neurological History: Denies: Hx Headaches, Hx Migraine, Hx Seizures Psychiatric History: Reports: Hx Depression, Hx Substance Abuse - hx alcoholism , 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 - Surgical History Surgery Procedure, Year, and Place: tubal [place] and [place]ectomy [place] [facility] [facility] [place] with late Dr Linton Infectious Disease History: No Infectious Disease History: Denies: Traveled Outside the [place] in Last 30 Days - Family History Known Family History: Positive: Hypertension - Social History Alcohol Use: 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 per pt Hx Substance Use: No Substance Use Type: Reports: None Hx Tobacco Use: Yes Smoking Status (MU): Former Smoker Type: Cigarettes Amount Used/How Often: socially,pt cant recall mb started at age 34. Have You Smoked in the Last Year: No Review of Systems Negative: Fever, Chills Positive: Erythema - bleeding of right eye Negative: Sore Throat Negative: Chest Pain Negative: Shortness Of Breath, Cough Negative: Abdominal Pain, Vomiting, Nausea Negative: dysuria, hematuria Negative: Myalgia, Edema Negative: Rash Neurological: Other - negative - dizziness All Other Systems Reviewed And Are Negative: Yes Physical Exam - Summary Physical Exam Summary: Constitutional: Well-developed, Well-nourished, Alert. (-) Distressed Skin: Warm, Dry HENT: Normocephalic; Atraumatic Eyes: On visual acuity test, patient is 20/50 at both eyes without corrective lenses, right subconjuctival hemorrhage noted. Neck: Musculoskeletal ROM normal neck. (-) JVD, (-) Stridor, (-) Tracheal deviation Cardio: Rhythm regular, rate normal, Heart sounds normal; Intact distal pulses; The pedal pulses are 2+ and symmetric. Radial pulses are 2+ and symmetric. (-) Murmur Pulmonary/Chest wall: Effort normal. (-) Respiratory distress, (-) Wheezes, (-) Rales Abd: Soft, (-) tenderness, (-) Distension, (-) Guarding, (-) Rebound Musculoskeletal: (-) Edema Lymph: (-) Cervical adenopathy Neuro: Alert, Oriented x3 Psych: Mood and affect Normal Triage Information Reviewed: Yes Vital Signs On Initial Exam: Initial Vitals Temp Pulse Resp BP Pulse Ox 97.7 F 89 16 144/90 98 11/17/18 14:03 11/17/18 14:03 11/17/18 14:03 11/17/18 14:03 11/17/18 14:03 Vital Signs Reviewed: Yes Diagnostics - Vital Signs Vital Signs Temp Pulse Resp BP Pulse Ox 11/17/18 15:47 98.4 F 76 17 133/66 97 11/17/18 14:03 97.7 F 89 16 144/90 98 - Laboratory Result Diagrams: 11/17/18 16:45 Lab Statement: Any lab studies that have been ordered have been reviewed, and results considered in the medical decision making process. EENT Course/Dx - Course Course Of Treatment: Patient is a 83 y/o F on Eliquis for afib who presents to [facility] with complaints of bleeding to right eye. Sx are reported to have onset four days ago. Eye was initially just bloodshot. She reports relief in Sx by icing her eye. Daughter first noted Sx three days ago. Patient uses glasses. Injury to head or eye are denied. She states that she has intermittent sharp pain at the right eye. Last episode of pain was last night. Hx of cataracts noted. On visual acuity test, patient is noted to be 20/50 at both eyes without corrective lenses. Right subconjuctival hemorrhage is noted. Patient was discharged to home with PCP follow up in 3-5 days. - Diagnoses Provider Diagnoses: Subconjunctival hemorrhage of right eye Discharge ED - Sign-Out/Discharge Documenting (check all that apply): Patient Departure - discharge Patient Received Moderate/Deep Sedation with Procedure: No - Discharge Plan Condition: Stable Disposition: HOME Patient Education Materials: Subconjunctival Hemorrhage (ED) Referrals: Kate Bates DO [Primary Care Provider] - 5 Days Additional Instructions: PLEASE RETURN TO ED FOR ANY NEW OR WORSENING SYMPTOMS. PLEASE FOLLOW UP WITH YOUR PRIMARY CARE PHYSICIAN IN 3-5 DAYS. - Attestation Statements Document Initiated by Scribe: Yes Documenting Scribe: ROSANNA DESAI Provider For Whom Scribe is Documenting (Include Credential): GEORGES ORTIZ MD Scribe Attestation: I, ROSANNA DESAI, scribed for GEORGES ORTIZ MD on 11/17/18 at 1720. Status of Scribe Document: Ready
[2018-11-17 16:59] LABS: ABS Basophils 0.1 10^3/ul (0-0.2); ABS Eosinophils 0.3 10^3/ul (0-0.6); ABS Lymphocytes 3.4 10^3/ul (1.0-4.8); ABS Monocytes 0.7 10^3/ul (0-0.8); ABS Neutrophils 4.4 10^3/ul (1.5-7.7); Eosinophil % 2.9 %; Hematocrit 41 % (35-47); Hemoglobin 14.1 g/dL (12.0-16.0); Lymphocyte % 38.5 %; Mean Corpuscular HGB Conc 34 g/dL (31-36); Mean Corpuscular Hemoglobin 28 pg (27-31); Mean Corpuscular Volume 81 fL (80-97); Mean Platelet Volume 9.5 fL (7.4-10.4); Nucleated Red Blood Cells % 0.1; Platelet Count 203 10^3/uL (150-450); Red Blood Count 5.06 10^6 /uL (3.70-4.87); Red Cell Distribution Width 17 % (10-15); White Blood Count 8.8 10^3/uL (3.5-10.8)
[2018-11-17 17:00] LABS: Activated Partial Thrombo Time 33.2 seconds (26.0-38.0); INR 1.21 (0.82-1.09)
[2018-11-17 17:08] VITALS: BP 159/79
[2018-11-17 17:26] LABS: Albumin 4.3 g/dL (3.2-5.2); Albumin/Globulin Ratio 1.5 (1-3); BUN/Creatinine Ratio 26.9 (8-20); Calcium 9.4 mg/dL (8.6-10.3); EGFR African American 85.1 (>60); EGFR Non-African American 70.4 (>60); Globulin 2.9 g/dL (2-4); Potassium 4.4 mmol/L (3.5-5.0); Total Bilirubin 0.4 mg/dL (0.2-1.0); Total Protein 7.2 g/dL (6.4-8.9)
== END 2018-11-17 17:10 | disposition home or self-care (01) ==
LOC: ED 14:01
DX: H11.31 Conjunctival hemorrhage, right eye (principal); E11.9 Type 2 diabetes mellitus without complications; E78.00 Pure hypercholesterolemia, unspecified; I10 Essential (primary) hypertension; F32.9 Major depressive disorder, single episode, unspecified; Z87.891 Personal history of nicotine dependence; Z88.0 Allergy status to penicillin
CPT/HCPCS: 36415; 80053; 85025; 85610; 85730; 99282

== ENCOUNTER 2019-04-03 15:13 | Emergency (ER) | payer MEDICARE, MEDICAID ==
--- NOTE | 2019-04-03 15:28 | ED ---
Dizziness - HPI Summary HPI Summary: Patient is an 83 y/o F presenting to the ED via EMS for a chief complaint of dizziness and lightheadedness that began upon waking up around 06:00 on . Patient was visited by her home health nurse to whom the patient reported her symptoms. Since 03/30/19, patient notes having intermittent palpitations. She also states she has bilateral LE myalgia that she describes as a "squeezing " sensation. Patient denies chest pain. She took aspirin with worsening of her symptoms. No alleviating factors are reported. Previously, patient was taking blood thinners, but this was discontinued one month ago after patient was having hematuria. She takes 81 mg of aspirin Q2D. Per EMS, patient has also had recent medication changes. PMHx is significant for HTN, HLD, and DM. - History Of Current Complaint Stated Complaint: WEAKNESS,DIZZINESS PER EMS Hx Obtained From: Patient, EMS Onset/Duration: Still Present Timing: Constant Severity Initially: Moderate Severity Currently: Moderate Character: Lightheaded, Dizzy Aggravating Factor(s): Other - Aspirin Alleviating Factor(s): Nothing Associated Signs And Symptoms: Positive: Palpitations - Intermittent, Change In Medication. Negative: Chest Pain - Allergies/Home Medications Allergies/Adverse Reactions: Allergies Allergy/AdvReac Type Severity Reaction Status Date / Time Penicillins Allergy Intermediate Rash And Verified 11/17/18 14:11 Itching carvedilol [From Coreg] AdvReac Intermediate Coughing Verified 11/17/18 14:11 PMH/Surg Hx/FS Hx/Imm Hx Previously Healthy: Yes Endocrine/Hematology History: Reports: Hx Diabetes Denies: Hx Thyroid Disease, Hx Anemia Cardiovascular History: Reports: Hx Hypercholesterolemia, Hx Hypertension, Hx Valvular Heart Disease - Aortic stenosis, Other Cardiovascular Problems/ Disorders - mitral regurgitation, vavular heart disease Denies: Hx Angina, Hx Coronary Artery Disease, Hx Pacemaker/ICD Respiratory History: Reports: Hx Seasonal Allergies - dust, dogs, Other Respiratory Problems/Disorders - bilateral PE's 2017 Denies: Hx Asthma GI History: Reports: Other GI Disorders - constipation and hemorrhoids History: Reports: Other Problems/Disorders - urgency, UTI Denies: Hx Kidney Stones, Hx Renal Disease Musculoskeletal History: Reports: Hx Arthritis, Hx Osteoporosis Sensory History: Reports: Hx Hearing Aid - left ear only Denies: Hx Contacts or Glasses, Hx Legally Blind, Hx Deafness Opthamlomology History: Denies: Hx Contacts or Glasses, Hx Legally Blind EENT History: Reports: Hx Hearing Aid - Left ear Denies: Hx Deafness Neurological History: Denies: Hx Headaches, Hx Migraine, Hx Seizures Psychiatric History: Reports: Hx Depression, Hx Substance Abuse - hx alcoholism , 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 - Surgical History Surgical History: Yes Surgery Procedure, Year, and Place: tubal ligation and appendectomy - [facility], [facility] [place] /[facility] with late Dr Linton Infectious Disease History: No Infectious Disease History: Denies: Traveled Outside the [place] in Last 30 Days - Family History Known Family History: Positive: Hypertension - Social History Occupation: Retired Alcohol Use: 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 per pt Hx Substance Use: No Substance Use Type: Reports: None Hx Tobacco Use: Yes Smoking Status (MU): Former Smoker Type: Cigarettes Amount Used/How Often: socially,pt cant recall mb started at age 34. Have You Smoked in the Last Year: No Review of Systems Positive: Palpitations - Intermittent. Negative: Chest Pain Positive: Myalgia - Bilateral LE with "squeezing" sensation Neurological/Mental Status: Other - Positive dizziness and lightheadedness All Other Systems Reviewed And Are Negative: Yes Physical Exam - Summary Physical Exam Summary: Appearance: The patient is well-nourished in no acute distress and in no acute pain. Skin: The skin is warm and dry, and skin color reflects adequate perfusion. HEENT: The head is normocephalic and atraumatic. The pupils are equal and reactive. The conjunctivae are clear and without drainage. Nares are patent and without drainage. Mouth reveals moist mucous membranes, and the throat is without erythema and exudate. The external ears are intact. The ear canals are patent and without drainage. The tympanic membranes are intact. Neck: The neck is supple with full range of motion and non-tender. There are no carotid bruits. There is no neck vein distension. Respiratory: Chest is non-tender. Lungs are clear to auscultation and breath sounds are symmetrical and equal. Cardiovascular: Heart is regular in rhythm and irregularly irregular in rate. There is no murmur or rub auscultated. There is no peripheral edema and pulses are symmetrical and equal. Abdomen: The abdomen is soft and non-tender. There are normal bowel sounds heard in all four quadrants and there is no organomegaly palpated. Musculoskeletal: There is no back tenderness noted. Extremities are non-tender with full range of motion. There is good capillary refill. There is no peripheral edema or calf tenderness elicited. Neurological: Patient is alert and oriented to person, place and time. The patient has symmetrical motor strength in all four extremities. Cranial nerves are grossly intact. Deep tendon reflexes are symmetrical and equal in all four extremities. Psychiatric: The patient has an appropriate affect and does not exhibit any anxiety or depression. Triage Information Reviewed: Yes Vital Signs Reviewed: Yes Procedures - Sedation Patient Received Moderate/Deep Sedation with Procedure: No Diagnostics - Laboratory Result Diagrams: 04/03/19 15:48 04/03/19 15:48 Lab Statement: Any lab studies that have been ordered have been reviewed, and results considered in the medical decision making process. - Radiology Chest X-ray Radiology Interpretation Completed By: Radiologist Summary of Radiographic Findings: Chest X-ray IMPRESSION: NO EVIDENCE FOR ACTIVE CARDIOPULMONARY DISEASE. Reviewed by Dr. Brown. - CT Brain CT CT Interpretation Completed By: Radiologist Summary of CT Findings: Brain CT IMPRESSION: NO EVIDENCE FOR ACUTE INTRACRANIAL ABNORMALITY. Reviewed by Dr. Brown. - EKG 16:32 Cardiac Rate: Other Rate - 89 BPM EKG Rhythm: Atrial Fibrillation ST Segment: Normal Ectopy: None EKG Comparison: No Significant Change - From 08/30/18 Summary of EKG Findings: EKG at 16:32 shows atrial fibrillation with 89 BPM, normal ST, no ectopy, no STEMI. Unchanged from prior EKG on 08/30/18. Dizzy Course/Dx - Course Course Of Treatment: Ms. Jacobs presented with a variety of intermittent symptoms. She attributes her symptoms to the timing of her Cardizem and aspirin. She believes that if she takes the aspirin too soon in conjunction with Cardizem she will precipitate her symptoms. She took her Cardizem this morning but normally takes it in the evening. She was brought in by ambulance fairly hypertensive. She basically normalized her blood pressure here although it always remained somewhat high. She is constantly in atrial fibrillation and at times she went a little bit fast but most of the time was in control here. She was kept on a monitor. She had some bleeding issues and her Eliquis so his was stopped several months ago. She was kept on a monitor here while labs and CT were obtained which were not significantly changed. I'm not sure what to do for I don't think anything immediately dangerous is happening. I recommended she follow up with her PCP for management of her blood pressure. I think it is very unlikely that this represents TIA or stroke. - Diagnoses Provider Diagnoses: Hypertension Discharge ED - Sign-Out/Discharge Documenting (check all that apply): Patient Departure - discharge - Discharge Plan Condition: Stable Disposition: HOME Patient Education Materials: Hypertension (ED) Referrals: Adriel Frost MD [Medical Doctor] - 3 Days Kate Bates DO [Primary Care Provider] - 3 Days Additional Instructions: Follow up with Dr. Frost, Cardiology within the next week. - Billing Disposition and Condition Condition: STABLE Disposition: Home - Attestation Statements Document Initiated by Scribe: Yes Documenting Scribe: Shalonda Estrada Provider For Whom Scribe is Documenting (Include Credential): Jose De Jesus Brown MD Scribe Attestation: I, Shalonda Estrada, scribed for Jose De Jesus Brown MD on 04/03/19 at 2017. Scribe Documentation Reviewed: Yes Provider Attestation: The documentation as recorded by the Shalonda shepherd accurately reflects the service I personally performed and the decisions made by me, Jose De Jesus Brown MD Status of Scribe Document: Viewed
[2019-04-03 15:54] LABS: ABS Basophils 0.1 10^3/ul (0-0.2); ABS Eosinophils 0.3 10^3/ul (0-0.6); ABS Lymphocytes 2.7 10^3/ul (1.0-4.8); ABS Monocytes 0.7 10^3/ul (0-0.8); ABS Neutrophils 2.6 10^3/ul (1.5-7.7); Eosinophil % 4.8 %; Hematocrit 44 % (35-47); Hemoglobin 14.9 g/dL (12.0-16.0); Lymphocyte % 41.8 %; Mean Corpuscular HGB Conc 34 g/dL (31-36); Mean Corpuscular Hemoglobin 29 pg (27-31); Mean Corpuscular Volume 83 fL (80-97); Mean Platelet Volume 8.7 fL (7.4-10.4); Platelet Count 201 10^3/uL (150-450); Red Blood Count 5.24 10^6 /uL (3.70-4.87); Red Cell Distribution Width 14 % (10-15); White Blood Count 6.4 10^3/uL (3.5-10.8)
[2019-04-03 16:07] LABS: INR 1.02 (0.82-1.09)
[2019-04-03 16:29] LABS: Albumin 4.7 g/dL (3.2-5.2); Albumin/Globulin Ratio 1.5 (1-3); BUN/Creatinine Ratio 13.5 (8-20); EGFR African American 73.1 (>60); EGFR Non-African American 60.4 (>60); Globulin 3.1 g/dL (2-4); Potassium 3.9 mmol/L (3.5-5.0); Total Bilirubin 0.6 mg/dL (0.2-1.0); Total Protein 7.8 g/dL (6.4-8.9)
[2019-04-03 16:34] LABS: Urine Appearance Cloudy; Urine Bilirubin Negative (Negative); Urine Blood 1+ (Negative); Urine Color Straw; Urine Glucose Negative (Negative); Urine Ketones Negative (Negative); Urine Nitrite Negative (Negative); Urine Protein Negative (Negative); Urine Specific Gravity 1.006 (1.010-1.030); Urine Urobilinogen Negative (Negative)
[2019-04-03 16:35] LABS: Urine Bacteria Absent (Absent); Urine Red Blood Cell 1+(3-5/hpf) (Absent); Urine Squamous Epithelial Cell Present (Absent); Urine White Blood Cell 2+(11-20/hpf) (Absent)
--- OUTSIDE RECORDS SUMMARY | 2019-04-03 16:36 | XMS REPORT | Continuity of Care Document ---
:1935 External Reference #:[id number] Author Name Kate Bates DO (transmitted by agent of provider Dominga Blankenship) Address [address] [place] [phone] Care Team Providers Name Role Phone Kate Bates DO - Hospitalist Care Team Information Lead Esthetician Alon Newton MD - Urology Care Team Information Lead Esthetician [phone] Problems Active Problems Provider Date Closed intertrochanteric fracture Peter Sahu MD Onset: 06/02/2018 Social History Type Date Description Comments Sex Unknown Tobacco Use Start: Unknown End: Former Cigarette Smoker Unknown Smoking Status Reviewed: 02/16/19 Former Cigarette Smoker ETOH Use Has consumed alcohol in Last drink 2015 the past Tobacco Use Start: Unknown End: Patient is a former Unknown smoker Recreational Drug Use Denies Drug Use Exercise Type/Frequency Does not exercise Allergies, Adverse Reactions, Alerts Active Allergies Reaction Severity Comments Date Penicillin V 07/31/2018 Inactive Allergies NKDA 07/03/2018 Medications Active Medications SIG Qnty Indications Ordering Provider Date Chlorthalidone 1 by mouth 30tabs I10 Kate Bates, 02/16/2019 25mg Tablets every day DO Bath/Shower Seat With use daily in 1units Kate Bates, 10/27/2018 Back/Adjustable bath Dx DO Misc S72.141D Ov 06/2018 Equate Laxitive One tab by Qutaybeh S. 07/30/2018 mouth as needed Kady Frost Centrum Adults One tab daily Qutaybeh S. 07/30/2018 Tablets Kady Frost Cardizem CD 1 by mouth 90caps Kate Bates, 360mg Caps ER every day DO 24HR Crestor 1 by mouth 90tabs Kate Senner, 10mg Tablets every day DO Tylenol 8 Hour 1 by mouth Unknown 650mg twice a day as Tablets ER needed History Medications Xarelto 1 by mouth every 30tabs Kate Senner, DO 01/13/2019 - 20mg day with the 02/16/2019 Tablets evening meal Immunizations CPT Code Status Date Vaccine Reaction Lot # [id number] Given 12/30/2018 Pneumonia Vaccine shot tolerated well, no [id number] immediate reaction [id number] Given 12/30/2018 Fluad (65+) or older flu [id number] vacc Vital Signs Date Vital Result Comment 02/16/2019 2:01pm Height 61 inches 5'1" Weight 169.00 lb Heart Rate 48 /min BP Systolic 191 mmHg 192/93 BP Diastolic 116 mmHg 192/93 Body Temperature 97.8 F O2 % BldC Oximetry 96 % BMI (Body Mass Index) 31.9 kg/m2 01/12/2019 12:54pm Height 61 inches 5'1" Weight 164.00 lb Heart Rate 95 /min BP Systolic 155 mmHg BP Diastolic 87 mmHg Body Temperature 98.5 F O2 % BldC Oximetry 97 % BMI (Body Mass Index) 31.0 kg/m2 Results Test Acquired Date Facility Test Result H/L Range Note Urinalysis Profile 01/14/2019 [facility] Urine Color Yellow [address] [place] [address] [phone] Urine Appearance Turbid Urine Specific [place] 1.013 Normal 1.010-1.030 Urine pH 7.0 Normal 5-9 Urine Urobilinogen Negative Negative Urine Ketones Negative Negative Urine Protein Negative Negative Urine Leukocytes 3+ Abnormal Negative Urine Blood 1+ Abnormal Negative * * Abnormal Negative 1 Urine Nitrite Negative Negative Urine Bilirubin Negative Negative Urine Glucose Negative Negative Urine White Blood Cell 3+(>20/hpf) Abnormal Absent Urine Red Blood Cell 3+(>10/hpf) Abnormal Absent Urine Bacteria Absent Absent Urine Squamous Epithelial Cell Present Abnormal Absent Urine Culture And 01/14/2019 [facility] Urine SEE RESULT [address] [place] [place] [address] [phone] CBC Auto Diff 01/12/2019 [facility] White Blood 8.1 10^3/uL Normal 3.5-[address] Count 0.8 [place], [place] [id number] [phone] Red Blood Count 4.88 10^6/uL High 3.70-4.87 Hemoglobin 14.2 g/dL Normal 12.0-16.0 Hematocrit 41 % Normal 35-47 Mean Corpuscular Volume 84 fL Normal 80-97 Mean Corpuscular Hemoglobin 29 pg Normal 27-31 Mean Corpuscular HGB Conc 35 g/dL Normal 31-36 Red Cell Distribution Width 15 % Normal 10-15 Platelet Count 215 10^3/uL Normal 150-450 Mean Platelet Volume 9.7 fL Normal 7.4-10.4 Abs Neutrophils 4.4 10^3/uL Normal 1.5-7.7 Abs Lymphocytes 2.7 10^3/uL Normal 1.0-4.8 Abs Monocytes 0.6 10^3/uL Normal 0-0.8 Abs Eosinophils 0.3 10^3/uL Normal 0-0.6 Abs Basophils 0.1 10^3/uL Normal 0-0.2 Abs Nucleated RBC 0.0 10^3/uL Granulocyte % 54.5 % Lymphocyte % 33.2 % Monocyte % 7.6 % Eosinophil % 3.3 % Basophil % 1.4 % Nucleated Red Blood Cells % 0.1 Basic Metabolic 01/12/2019 [facility] Sodium 140 mmol/L Normal 135-[address] [place] [address] [phone] Potassium 4.4 mmol/L Normal 3.5-5.0 Chloride 107 mmol/L Normal 101-111 Co2 Carbon Dioxide 25 mmol/L Normal 22-32 Anion Gap 8 mmol/L Normal 2-11 Glucose 167 mg/dL High 70-100 Blood Urea Nitrogen 11 mg/dL Normal 6-24 Creatinine 0.83 mg/dL Normal 0.51-0.95 BUN/Creatinine Ratio 13.3 Normal 8-20 Calcium 9.4 mg/dL Normal 8.6-10.3 Egfr Non- 65.5 >60 Egfr 79.2 >60 3 Lipid Profile 01/12/2019 [facility] Triglycerides 240 mg/dL 4 (Trig/Chol/HDL) [address] [place] [address] [phone] Cholesterol 158 mg/dL 5 HDL Cholesterol 42.8 mg/dL 6 LDL Cholesterol 67 mg/dL 7 Laboratory test 01/12/2019 [facility] Hemoglobin A1c 6.6 % High 4.0-5.[address] (Glyco HGB) [place], [place] [id number] [phone] CBC Auto Diff 11/17/2018 [facility] White Blood 8.8 Normal 3.5 -10.[address] Count 10^3/[place] [address] [phone] Red Blood Count 5.06 10^6/uL High 3.70-4.87 Hemoglobin 14.1 g/dL Normal 12.0-16.0 Hematocrit 41 % Normal 35-47 Mean Corpuscular Volume 81 fL Normal 80-97 Mean Corpuscular Hemoglobin 28 pg Normal 27-31 Mean Corpuscular HGB Conc 34 g/dL Normal 31-36 Red Cell Distribution Width 17 % High 10-15 Platelet Count 203 10^3/uL Normal 150-450 Mean Platelet Volume 9.5 fL Normal 7.4-10.4 Abs Neutrophils 4.4 10^3/uL Normal 1.5-7.7 Abs Lymphocytes 3.4 10^3/uL Normal 1.0-4.8 Abs Monocytes 0.7 10^3/uL Normal 0-0.8 Abs Eosinophils 0.3 10^3/uL Normal 0-0.6 Abs Basophils 0.1 10^3/uL Normal 0-0.2 Abs Nucleated RBC 0.0 10^3/uL Granulocyte % 50.1 % Lymphocyte % 38.5 % Monocyte % 7.7 % Eosinophil % 2.9 % Basophil % 0.8 % Nucleated Red Blood Cells % 0.1 Inr/Protime 11/17/2018 [facility] Inr 1.21 High 0.82-1.[address] [place] [address] [phone] Laboratory test 11/17/2018 [facility] Partial 33.2 Normal 26.0 -38.[address] [place] [address] Time PTT [phone] Comp Metabolic 11/17/2018 [facility] Sodium 137 mmol/L Normal 135-[address] [place], [place] [address] [phone] Potassium 4.4 mmol/L Normal 3.5-5.0 Chloride 106 mmol/L Normal 101-111 Co2 Carbon Dioxide 24 mmol/L Normal 22-32 Anion Gap 7 mmol/L Normal 2-11 Glucose 151 mg/dL High 70-100 Blood Urea Nitrogen 21 mg/dL Normal 6-24 Creatinine 0.78 mg/dL Normal 0.51-0.95 BUN/Creatinine Ratio 26.9 High 8-20 Calcium 9.4 mg/dL Normal 8.6-10.3 Total Protein 7.2 g/dL Normal 6.4-8.9 Albumin 4.3 g/dL Normal 3.2-5.2 Globulin 2.9 g/dL Normal 2-4 Albumin/Globulin Ratio 1.5 Normal 1-3 Total Bilirubin 0.40 mg/dL Normal 0.2-1.0 Alkaline Phosphatase 178 U/L High 34-104 Alt 15 U/L Normal 7-52 Ast 18 U/L Normal 13-39 Egfr Non- 70.4 >60 Egfr 85.1 >60 10 1 *Ascorbic acid is present which may interfere with detection of blood. 2 SEE RESULT BELOW Name: ARIADNA RENDON : [address]: Kate Bates DO Acct: [id number] Unit: [id number] AGE: 83 Location: [facility] Re01/14/19 SEX: F Status: REG REF SPEC: [id number] ANDRES: 01/14/19-[address]: Kate Bates DO REQ: [id number] RECD: 01/14/19-1240 STATUS: COMP _ SOURCE: URINE SPDESC: ORDERED: Urine Culture Procedure Result Reported Site Urine Culture Final 01/15/19- 1114 ML No growth of clinically significant organisms * ML - Main Lab . END OF REPORT DEPARTMENT OF PATHOLOGY, [address] [place] [address] Zaid Leon M.D. Director [facility] # [id number] 3 Because ethnic data is not always readily available, this report includes an eGFR for both -Americans and non- Americans. The National Kidney Disease Education Program (NKDEP) does not endorse the use of the MDRD equation for patients that are not between the ages of 18 and 70, are , have extremes of body size, muscle mass, or nutritional status, or are non- or non-. According to the National Kidney Foundation, irrespective of diagnosis, the stage of the disease is based on the level of kidney function: Stage Description GFR(mL/min/1.73 m(2)) 1 Kidney damage with normal or decreased GFR 90 2 Kidney damage with mild decrease in GFR 60-89 3 Moderate decrease in GFR 30-59 4 Severe decrease in GFR 15-29 5 Kidney failure <15 (or dialysis) 4 Desirable: <150 Borderline High: 150-199 High: 200-499 Very High: >500 5 Desirable: <200 Borderline High: 200-239 High: >239 6 Low: <40 Desirable: 40-60 High: >60 7 Desirable: <100 Near Optimal: 100-129 Borderline High: 130-159 High: 160-189 Very High: >189 8 Therapeutic target for the treatment of diabetes mellitus patients is <7% HBA1C, and in selective patients <6.0%. Please refer to [place] Diabetes Association diabetic care guidelines for further information. 9 Standard intensity warfarin therapeutic range: 2.0-3.0 High intensity warfarin therapeutic range: 2.5-3.5 10 Because ethnic data is not always readily available, this report includes an eGFR for both -Americans and non- Americans. The National Kidney Disease Education Program (NKDEP) does not endorse the use of the MDRD equation for patients that are not between the ages of 18 and 70, are , have extremes of body size, muscle mass, or nutritional status, or are non- or non-. According to the National Kidney Foundation, irrespective of diagnosis, the stage of the disease is based on the level of kidney function: Stage Description GFR(mL/min/1.73 m(2)) 1 Kidney damage with normal or decreased GFR 90 2 Kidney damage with mild decrease in GFR 60-89 3 Moderate decrease in GFR 30-59 4 Severe decrease in GFR 15-29 5 Kidney failure <15 (or dialysis) Procedures Date Code Description Status 08/27/2018 64202 Moderate Sedation Services; Same Phys Intl 15 Mins; PT >= Completed 5 Years 08/27/2018 21679 Color Flow Doppler/Interp & Reprt Completed 08/27/2018 81928 Pulse Wave/Continuous-Interp.RPT Completed 08/27/2018 53127 Echocardiography, Transesophageal, Real Time W/Image 2D Completed W/W/O M-M 08/25/2018 47867 Holter Monitor Review (24 hr)dr review & interp only Completed Medical Devices Description No Information Available Encounters Type Date Location Provider Dx Diagnosis Office Visit 01/12/2019 [facility] Kate Bates DO R31.0 Gross hematuria 1:00p Medicine - [address] K92.1 Melena I48.91 Unspecified atrial fibrillation Office Visit 12/30/2018 2:00p [facility] Kate E11.9 Type 2 diabetes Medicine - Senner, DO mellitus without [address] complications I48.91 Unspecified atrial fibrillation I10 Essential (primary) hypertension M81.8 Other osteoporosis without current pathological fracture Z23 Encounter for immunization Z00.01 Encounter for general adult medical exam w abnormal findings Office Visit 11/07/2018 [place] Adriel S. I48.91 Unspecified atrial 3:40p Cardiology Kady Frost fibrillation I10 Essential (primary) hypertension I35.0 Nonrheumatic aortic (valve) stenosis I34.0 Nonrheumatic mitral (valve) insufficiency Assessments Date Code Description Provider 02/16/2019 R31.0 Gross hematuria Kate Senner, DO 02/16/2019 I48.0 Paroxysmal atrial fibrillation Kate Senner, DO 02/16/2019 I10 Essential (primary) hypertension Kate Senner, DO 02/16/2019 R60.0 Localized edema Kate Senner, DO 01/12/2019 R31.0 Gross hematuria Kate Senner, DO 01/12/2019 K92.1 Melena Kate Senner, DO 01/12/2019 I48.91 Unspecified atrial fibrillation Kate Senner, DO 12/30/2018 E11.9 Type 2 diabetes mellitus without Kate Senner, DO complications 12/30/2018 I48.91 Unspecified atrial fibrillation Kate Senner, DO 12/30/2018 I10 Essential (primary) hypertension Kate Senner, DO 12/30/2018 M81.8 Other osteoporosis without current Kate Senner, DO pathological fracture 12/30/2018 Z23 Encounter for immunization Kate Senner, DO 12/30/2018 Z00.01 Encounter for general adult medical Kate Bates, DO examination with abnormal findings 11/07/2018 I48.91 Unspecified atrial fibrillation Adriel Frost M.D. 11/07/2018 I10 Essential (primary) hypertension Adriel Frost M.D. 11/07/2018 I35.0 Nonrheumatic aortic (valve) stenosis Adriel Frost M.D. 11/07/2018 I34.0 Nonrheumatic mitral (valve) Adriel Frost M.D. insufficiency 08/27/2018 I48.91 Unspecified atrial fibrillation Adriel Frost M.D. 08/25/2018 I48.91 Unspecified atrial fibrillation Adriel Frost M.D. Plan of Treatment Future Appointment(s):06/19/2019 2:00 pm - Kate Bates DO at [facility] Internal Medicine - [address] - CANDCAE Terry31.0 Gross hematuriaComments: Follow up with Dr. NewtonFollow up:3 nhvusvC50.0 Paroxysmal atrial uupififdavpzM61 Essential (primary) hypertensionNew Medication:Chlorthalidone 25 mg - 1 by mouth every dayR60.0 Localized edemaComments:Keep legs elevated during day and wear compression stockings Functional Status Description No Information Available Mental Status Description No Information Available Referrals Refer to Dr Reason for Referral Status Appt Date Alon Newton MD Per referred office, Pending US 02/12/19 to make Sent appt with patient. 01/27/[address] [place] [address] [place] [address] [phone] Wes Huertas MD Sent [address] [place] [address] [phone]
--- OUTSIDE RECORDS SUMMARY | 2019-04-03 16:36 | XMS REPORT | Continuity of Care Document ---
:1935 External Reference #:[id number] Author Name Kate Bates DO (transmitted by agent of provider Dominga Blankenship) Address [address] [place] [phone] Care Team Providers Name Role Phone Kate Bates DO - Hospitalist Care Team Information Dowel Maker Alon Newton MD - Urology Care Team Information Dowel Maker [phone] Problems Active Problems Provider Date Closed intertrochanteric [...] Seat With use daily in 1units Kate Btaes, 10/27/2018 Back/Adjustable bath Dx DO Misc S72.141D [...] Code Status Date Vaccine Reaction Lot # [id number] Given 12/30/2018 Pneumonia Vaccine shot tolerated well, no [id number] immediate reaction 33859 Given 12/30/2018 Fluad (65+) or older flu [id number] vacc Vital Signs Date Vital Result Comment [...] Result H/L Range Note Urinalysis Profile 01/14/2019 [facility] Urine Color Yellow [address] [place] [address] [phone] Urine Appearance Turbid Urine Specific [place] 1.013 Normal 1.010-1.030 Urine pH 7.0 Normal [...] Present Abnormal Absent Urine Culture And 01/14/2019 [facility] Urine SEE RESULT [address] [place] [address] [phone] CBC Auto Diff 01/12/2019 [facility] White Blood 8.1 10^3/uL Normal 3.5-[address] Count 0.8 [place], [place] [address] [phone] Red Blood Count 4.88 10^6/uL High 3.70-4.87 [...] Blood Cells % 0.1 Basic Metabolic 01/12/2019 [facility] Sodium 140 mmol/L Normal 135-[address] [place] [address] [phone] Potassium 4.4 mmol/L Normal 3.5-5.0 Chloride 107 mmol/L Normal 101-111 Co2 Carbon Dioxide 25 mmol/L Normal 22-32 Anion Gap 8 mmol/L Normal 2-11 Glucose 167 mg/dL High 70-100 Blood Urea Nitrogen 11 mg/dL Normal 6-24 Creatinine 0.83 mg/dL Normal 0.51-0.95 BUN/Creatinine Ratio 13.3 Normal 8-20 Calcium 9.4 mg/dL Normal 8.6-10.3 Egfr Non- 65.5 >60 Egfr 79.2 >60 3 Lipid Profile 01/12/2019 [facility] Triglycerides 240 mg/dL 4 (Trig/Chol/HDL) [address] [place] [address] [phone] Cholesterol 158 mg/dL 5 HDL Cholesterol 42.8 mg/dL 6 LDL Cholesterol 67 mg/dL 7 Laboratory test 01/12/2019 [facility] Hemoglobin A1c 6.6 % High 4.0-5.[address] (Glyco HGB) [place], [place] [address] [phone] CBC Auto Diff 11/17/2018 [facility] White Blood 8.8 Normal 3.5 -10.[address] Count 10^3/[place] [address] [phone] Red Blood Count 5.06 10^6/uL High 3.70-4.87 [...] Red Blood Cells % 0.1 Inr/Protime 11/17/2018 [facility] Inr 1.21 High 0.82-1.[address] [place] [address] [phone] Laboratory test 11/17/2018 [facility] Partial 33.2 Normal 26.0 -38.[address] [place] [address] Time PTT [phone] Comp Metabolic 11/17/2018 [facility] Sodium 137 mmol/L Normal 135-[address] [place], [place] [address] [phone] Potassium 4.4 mmol/L Normal 3.5-5.0 Chloride 106 [...] blood. 2 SEE RESULT BELOW Name: ARIADNA ERNDON : [address]: Kate Bates DO Acct: [id number] Unit: [id number] AGE: 83 Location: [facility] Re01/14/19 SEX: F Status: REG REF SPEC: [id number] ANDRES: 01/14/19-[address]: Kate Bates DO REQ: [id number] RECD: 01/14/19-1240 STATUS: COMP _ SOURCE: URINE SPDESC: ORDERED: Urine Culture Procedure Result Reported Site Urine Culture Final 01/15/19- 1114 ML No growth of clinically significant organisms * ML - Main Lab . END OF REPORT DEPARTMENT OF PATHOLOGY, [address] [place] [address] Zaid Leon M.D. Director [facility] # [id number] 3 Because ethnic data is not always [...] in selective patients <6.0%. Please refer to [place] Diabetes Association diabetic care guidelines for further [...] dialysis) Procedures Date Code Description Status 08/27/2018 61531 Moderate Sedation Services; Same Phys Intl 15 Mins; PT >= Completed 5 Years 08/27/2018 88998 Color Flow Doppler/Interp & Reprt Completed 08/27/2018 18306 Pulse Wave/Continuous-Interp.RPT Completed 08/27/2018 31751 Echocardiography, Transesophageal, Real Time W/Image 2D Completed W/W/O M-M 08/25/2018 04972 Holter Monitor Review (24 hr)dr review & interp only Completed 08/19/2018 61154 ECG Monitor/Recording W/Visual Superimposition Scanning Completed 08/19/2018 27117 ECG Monitor/Recording W/Visual Superimposition Scanning Completed Medical Devices Description No Information Available Encounters Type Date Location Provider Dx Diagnosis Office Visit 01/12/2019 [facility] Kate Senner, DO R31.0 Gross hematuria 1:00p Medicine - [address] K92.1 Melena I48.91 Unspecified atrial fibrillation Office Visit 12/30/2018 2:00p [facility] Kate E11.9 Type 2 diabetes Medicine - Senner, DO mellitus without [address] complications I48.91 Unspecified atrial fibrillation I10 Essential (primary) hypertension M81.8 Other osteoporosis without current pathological fracture Z23 Encounter for immunization Z00.01 Encounter for general adult medical exam w abnormal findings Office Visit 11/07/2018 [place] Adriel S. I48.91 Unspecified atrial 3:40p Cardiology [...] Senner, DO 12/30/2018 I10 Essential (primary) hypertension Kaet Senner, DO 12/30/2018 M81.8 Other osteoporosis without [...] I48.91 Unspecified atrial fibrillation Nurse Visit cc Plan of Treatment Future Appointment(s):06/19/2019 2:00 pm - Kate Bates DO at [facility] Internal Medicine - [address] - Kate Bates, DOR31.0 Gross hematuriaComments: Follow up with Dr. NewtonFonorman up:3 yaesrfV55.0 Paroxysmal atrial wnrajlburpjaU40 Essential (primary) hypertensionNew Medication:Chlorthalidone 25 mg - 1 by mouth every dayR60.0 Localized edemaComments:Keep legs elevated during day and wear compression stockings Functional Status Description No Information Available Mental Status Description No Information Available Referrals Refer to Reason for Referral Status Appt Date Alon Newton MD Per referred office, Pending US 02/12/19 to make Sent appt with patient. 01/27/[address] [place] [address] [phone] Wes Huertas MD Sent [address] [place] [address] [phone]
[2019-04-03 17:07] LABS: TSH (Thyroid Stimulating Horm) 2.68 mcIU/mL (0.34-5.60)
[2019-04-03 19:02] VITALS: BP 176/106
== END 2019-04-03 19:01 | disposition home or self-care (01) ==
LOC: ED 15:13
DX: I10 Essential (primary) hypertension (principal); R00.2 Palpitations; E11.9 Type 2 diabetes mellitus without complications; E78.00 Pure hypercholesterolemia, unspecified; F32.9 Major depressive disorder, single episode, unspecified; Z87.891 Personal history of nicotine dependence; Z88.0 Allergy status to penicillin; Z79.899 Other long term (current) drug therapy
CPT/HCPCS: 36415; 70450; 71045; 80053; 81003; 81015; 83605; 84443; 84484; 85025; 85610; 87086; 93005; 99284

== ENCOUNTER 2024-02-12 03:28 | Inpatient (IN) ==
[2024-02-12 04:24] LABS: ABS Basophils 0.1 10^3/uL (0.0-0.1); ABS Eosinophils 0.3 10^3/uL (0.0-0.5); ABS Lymphocytes 1.8 10^3/uL (1.0-4.8); ABS Nucleated RBC 0.02 10^3/ul; Eosinophil % 2.7 %; Hemoglobin 12.9 g/dL (11.5-14.3); Lymphocyte % 14.8 %; Mean Corpuscular Hemoglobin 27.4 pg (27-33); Mean Corpuscular Hgb Conc 33.1 g/dL (31-36); Mean Corpuscular Volume 82.6 fL (80-97); Mean Platelet Volume 9.2 fL (7.5-11.2); Nucleated Red Blood Cells % 0.1 %/100WBC (0.0-0.8); Platelet Count 238 10^3/uL (150-450); Red Blood Count 4.72 10^6/uL (3.63-4.92); Red Cell Distribution Width 14.5 % (12-17); White Blood Count 12.2 10^3/uL (3.8-11.8)
[2024-02-12 04:57] LABS: ALT 41 U/L (7-52); Albumin/Globulin Ratio 1.3 (1-3); Alkaline Phosphatase 150 U/L (35-149); Anion Gap 8 mmol/L (2-16); Blood Urea Nitrogen 41 mg/dL (6-24); CO2 Carbon Dioxide 20 mmol/L (22-32); Calcium 9.4 mg/dL (8.6-10.3); Chloride 95 mmol/L (101-111); Creatinine, Serum 1.63 mg/dL (0.51-0.95); Globulin 3.2 g/dL (2-4); Glucose 179 mg/dL (70-100); Sodium 123 mmol/L (135-145); Total Bilirubin 0.9 mg/dL (0.2-1.0); Total Protein 7.2 g/dL (6.4-8.9)
[2024-02-12 05:07] LABS: C Reactive Protein 52.38 mg/L (<8.01)
[2024-02-12] MEDS: cefTRIAXone 1 gm/50 mL D5W 1 GM/50 ML BAG IV ONE (05:22)
[2024-02-12] MEDS: Lactated Ringers 1000 ml BAG 1,000 ML IV ONE (05:22)
[2024-02-12 05:30] LABS: Activated Partial Thrombo Time 28.7 seconds (26.0-38.0); INR 1.29 (0.85-1.14)
[2024-02-12 05:52] LABS: Osmolality Serum 283 mOsm/kg (275-295)
[2024-02-12] MEDS ORDERED: Albuterol/Ipratropium NEB.SOL (2.5/0.5 MG) 3 ML NEB.SOLN INH PRN ×2 (06:21→10:29)
[2024-02-12] MEDS: hydrALAZINE 20 mg/ml 1 ML Vial IV IV SLOW PU ONE ×2 (06:26→06:48)
[2024-02-12 06:39] LABS: High Sensitivity Troponin 1 Hr 15 pg/mL (<15)
[2024-02-12] MEDS ORDERED: Dextrose 50% Syringe 50 ml 25 GM/50 ML SYRINGE IV PUSH PRN (06:39)
[2024-02-12 06:42] LABS: Magnesium 2.1 mg/dL (1.9-2.7); Potassium Redraw 4.1 mmol/L (3.5-5.0)
[2024-02-12] MEDS: Albuterol/Ipratropium NEB.SOL (2.5/0.5 MG) 3 ML NEB.SOLN INH SCH (06:50)
[2024-02-12 06:53] LABS: PCO2 Arterial 26 mmHg (35-45); PO2 Arterial 76 mmHg (80-100)
[2024-02-12] MEDS: Ondansetron 4 mg VIAL 2 MG/ML 2 ml VIAL IV PRN (06:53)
[2024-02-12] MEDS: Furosemide 40 mg/4 ml IV VIAL IV ONE (07:16)
[2024-02-12] MEDS: Furosemide 20 mg/2 ml IV VIAL IV SLOW PU ONE (07:28)
[2024-02-12] MEDS: Lactated Ringers 1000 ml BAG 1,000 ML IV SCH (08:18)
[2024-02-12] MEDS: Lidocaine 4% TOPICAL 50 ML TOP.SOLN TOPICAL ONE (09:30)
[2024-02-12] MEDS ORDERED: methylPREDNISolone SOD SUCC 125 mg 2 ML VIAL IV SCH (10:00)
[2024-02-12] MEDS: Norepinephrine 4 MG/250mL D5W 4,000 MCG/250 ML BAG IV ONE (10:18)
[2024-02-12] MEDS: methylPREDNISolone SOD SUCC 40 mg/ml 1 ml VIAL IV ONE (10:23)
[2024-02-12] MEDS: Enoxaparin 30 MG/0.3 ML SYR SUBCUT SCH (10:24)
[2024-02-12] MEDS ORDERED: Sulfur Hexaflouride MICROSPHR 25 MG VIAL IV PRN (11:26)
[2024-02-12] MEDS: Azithromycin 500 mg/250 ml NS 500 MG/250 ML BAG IVPB SCH (11:54)
[2024-02-12 12:25] LABS: Calcium 8.3 mg/dL (8.6-10.3); Creatinine, Serum 1.59 mg/dL (0.51-0.95); Potassium 4.1 mmol/L (3.5-5.0); eGFR CKD-EPI 30.9 (>60)
[2024-02-12] MEDS: Phenylephrine 40 mcg/mL 10mL (400mcg) SYRINGE ONE (13:00)
[2024-02-12] MEDS: Rocuronium 50 mg VIAL 10 mg/ml 5 ml VIAL (50 mg) ONE (13:00)
[2024-02-12] MEDS ORDERED: Labetalol IV 5 MG/ML 20 ml VIAL IV PUSH PRN ×2 (13:04→13:09)
[2024-02-12 15:34] LABS: Urine Appearance Turbid; Urine Bilirubin Negative (Negative); Urine Blood 3+ (Negative); Urine Color Light-Yellow; Urine Glucose Negative (Negative); Urine Ketones Negative (Negative); Urine Nitrite 1+ (Negative); Urine Protein 1+ (>=30 mg/dL) (Negative); Urine Specific Gravity 1.011 (1.002-1.030); Urine Urobilinogen Negative (Negative)
[2024-02-12 15:38] LABS: Urine Bacteria Absent /HPF (Absent); Urine Red Blood Cell 3+(>10/hpf) /HPF (0-Trace); Urine Squamous Epithelial Cell Present /HPF (Absent); Urine White Blood Cell 3+(>20/hpf) /HPF (0-Trace)
[2024-02-12] MEDS: Lidocaine 4% TOPICAL 50 ML TOP.SOLN ONE (16:38)
[2024-02-12] MEDS: methylPREDNISolone SOD SUCC 40 mg/ml 1 ml VIAL IV SCH (21:13)
[2024-02-13 05:18] LABS: Hematocrit 34.4 % (35-45); Hemoglobin 11.6 g/dL (11.5-14.3); Mean Corpuscular Hemoglobin 27.4 pg (27-33); Mean Corpuscular Hgb Conc 33.8 g/dL (31-36); Mean Platelet Volume 9.1 fL (7.5-11.2); Platelet Count 258 10^3/uL (150-450); Red Blood Count 4.24 10^6/uL (3.63-4.92); Red Cell Distribution Width 14.7 % (12-17); White Blood Count 13.1 10^3/uL (3.8-11.8)
[2024-02-13 05:30] LABS: Calcium 8.9 mg/dL (8.6-10.3); Creatinine, Serum 1.74 mg/dL (0.51-0.95); Potassium 4.4 mmol/L (3.5-5.0); eGFR CKD-EPI 27.7 (>60)
[2024-02-13] MEDS: cefTRIAXone 1 gm/50 mL D5W 1 GM/50 ML BAG IV SCH (08:00)
[2024-02-13] MEDS: Haloperidol 5 mg/ml SDV IV/IM 5 MG/ML AMP IV SLOW PU PRN (23:45)
[2024-02-14] MEDS: Labetalol IV 5 MG/ML 20 ml VIAL IV PUSH PRN (07:32)
[2024-02-14] MEDS: methylPREDNISolone SOD SUCC 40 mg/ml 1 ml VIAL IV SCH (07:32)
[2024-02-14] MEDS: Labetalol IV 5 MG/ML 20 ml VIAL ONE (07:47)
[2024-02-14] MEDS ORDERED: Labetalol IV 5 MG/ML 20 ml VIAL IV PUSH PRN ×2 (08:01→10:00)
[2024-02-14 13:28] LABS: Calcium 9.5 mg/dL (8.6-10.3); Creatinine, Serum 1.83 mg/dL (0.51-0.95); Potassium 5.1 mmol/L (3.5-5.0); eGFR CKD-EPI 26.1 (>60)
[2024-02-15] MEDS: Labetalol IV 5 MG/ML 20 ml VIAL IV PUSH ONE (02:54)
[2024-02-16 06:04] LABS: ABS Basophils 0.1 10^3/uL (0.0-0.1); ABS Eosinophils 0.1 10^3/uL (0.0-0.5); ABS Lymphocytes 2.1 10^3/uL (1.0-4.8); ABS Monocytes 0.9 10^3/uL (0.0-0.9); ABS Neutrophils 7.1 10^3/uL (1.5-7.6); ABS Nucleated RBC 0.01 10^3/ul; Eosinophil % 1.4 %; Lymphocyte % 20.5 %; Mean Corpuscular Hemoglobin 27.9 pg (27-33); Mean Corpuscular Hgb Conc 34.4 g/dL (31-36); Mean Corpuscular Volume 81.2 fL (80-97); Mean Platelet Volume 8.5 fL (7.5-11.2); Nucleated Red Blood Cells % 0.1 %/100WBC (0.0-0.8); Platelet Count 277 10^3/uL (150-450); Red Blood Count 4.67 10^6/uL (3.63-4.92); Red Cell Distribution Width 14.5 % (12-17); White Blood Count 10.4 10^3/uL (3.8-11.8)
[2024-02-16 06:39] LABS: Anion Gap 9 mmol/L (2-16); Blood Urea Nitrogen 43 mg/dL (6-24); CO2 Carbon Dioxide 21 mmol/L (22-32); Calcium 8.6 mg/dL (8.6-10.3); Chloride 101 mmol/L (101-111); Creatinine, Serum 1.44 mg/dL (0.51-0.95); Glucose 104 mg/dL (70-100); Sodium 131 mmol/L (135-145); eGFR CKD-EPI 34.8 (>60)
[2024-02-17 17:18] LABS: Rapid COVID-19 Molecular Undetected (Undetected)
[2024-02-18 06:27] LABS: Calcium 8.6 mg/dL (8.6-10.3); Creatinine, Serum 1.41 mg/dL (0.51-0.95); Magnesium 2.1 mg/dL (1.9-2.7); Potassium 4.6 mmol/L (3.5-5.0); eGFR CKD-EPI 35.7 (>60)
[2024-02-18 09:51] VITALS: BP 111/64
== END 2024-02-18 11:50 | DRG 177 ==
LOC: ED 03:28 → EDHOLD 03:28 → SUATTDRO 07:05 → ICU 07:49 → MEDTELE 08:00
PROVIDERS: ADMIT Hospitalist; ATTEND Student in an Organized Health Care Education/Training Program